=== PATIENT | male | born 1950 | race Caucasian/White ===

== ENCOUNTER → 2016-12-01 | Outpatient (CLI) | payer MEDICARE ==
--- NOTE | 2016-12-01 17:53 | REP ---
Left os calcis: Two views. History: Pain in the heel. Findings: Axial and lateral views demonstrate large plantar and Achilles calcaneal spurs. No erosive changes seen. Bones, joints and soft tissues are otherwise unremarkable. Achilles tendon contour appears normal. Impression: Extensive Achilles and plantar calcaneal spurring.
== END ==
LOC: M CLY 15:47
PROVIDERS: ATTEND Family Medicine
DX: M77.32 Calcaneal spur, left foot (principal)
CPT/HCPCS: 73650; G0463

== ENCOUNTER → 2017-02-07 | Outpatient (CLI) | payer MEDICARE ==
--- NOTE | 2017-02-07 15:54 | REP ---
Clinical: Cough. Technique: PA and lateral. Comparison: None. Findings: Mediastinum and cardiac silhouette are normal. Lung back demonstrate chronic-appearing changes primarily involving the left lower lung zone. No focal consolidation, effusion, or pneumothorax. Skeletal structures intact. Impression: Chronic-appearing changes. No prior examination is available for comparison and if the patient remains symptomatic, chest CT should be considered for further investigation.
== END ==
LOC: M CLY 15:29
PROVIDERS: ATTEND Family Medicine
DX: R05 Cough (principal)

== ENCOUNTER → 2017-03-13 | Outpatient (REF) | payer MEDICARE ==
[2017-03-13 12:38] LABS: ALBUMIN 3.8 GM/DL (3.2-5.2); ALBUMIN/GLOBULIN RATIO 1.27 (1.00-1.93); ALKALINE PHOSPHATASE 66 U/L (45-117); ALT/SGPT 29 U/L (12-78); ANION GAP 8 MEQ/L (8-16); AST/SGOT 17 U/L (15-37); BILIRUBIN,TOTAL 0.6 MG/DL (0.2-1.0); BLOOD UREA NITROGEN 16 MG/DL (7-18); CALCIUM LEVEL 8.6 MG/DL (8.8-10.2); CARBON DIOXIDE LEVEL 27 MEQ/L (21-32); CHLORIDE LEVEL 105 MEQ/L (98-107); CHOLESTEROL LEVEL 217 MG/DL (<200); CREATININE FOR GFR 0.97 MG/DL (0.70-1.30); GLOMERULAR FILTRATION RATE > 60.0 (>49); GLUCOSE, FASTING 101 MG/DL (80-110); POTASSIUM SERUM 4.3 MEQ/L (3.5-5.1); SODIUM LEVEL 140 MEQ/L (136-145); TOTAL PROTEIN 6.8 GM/DL (6.4-8.2); TRIGLYCERIDES LEVEL 184 MG/DL (<150)
== END ==
LOC: M SFHCCLAY 08:28
PROVIDERS: ATTEND Family Medicine
DX: I10 Essential (primary) hypertension (principal); Z12.5 Encounter for screening for malignant neoplasm of prostate
CPT/HCPCS: 80053; 80061; 84443; G0103

== ENCOUNTER → 2017-11-07 | Outpatient (REF) | payer MEDICARE ==
[2017-11-07 11:48] LABS: ALBUMIN/GLOBULIN RATIO 1.33 (1.00-1.93); ALKALINE PHOSPHATASE 65 U/L (45-117); ALT/SGPT 26 U/L (12-78); ANION GAP 6 MEQ/L (8-16); AST/SGOT 16 U/L (7-37); BILIRUBIN,TOTAL 0.7 MG/DL (0.2-1.0); BLOOD UREA NITROGEN 13 MG/DL (7-18); CALCIUM LEVEL 8.8 MG/DL (8.8-10.2); CARBON DIOXIDE LEVEL 27 MEQ/L (21-32); CHLORIDE LEVEL 107 MEQ/L (98-107); CHOLESTEROL LEVEL 234 MG/DL (<200); CHOLESTEROL RISK RATIO 4.034 (<5); CREATININE FOR GFR 0.88 MG/DL (0.70-1.30); GLOMERULAR FILTRATION RATE > 60.0 (>49); GLUCOSE, FASTING 106 MG/DL (70-100); HDL CHOLESTEROL 58 MG/DL (>40); NON-HDL-C 176 MG/DL; POTASSIUM SERUM 4.2 MEQ/L (3.5-5.1); SODIUM LEVEL 140 MEQ/L (136-145); TRIGLYCERIDES LEVEL 110 MG/DL (<150)
== END ==
LOC: M SFHCCLAY 07:03
DX: I10 Essential (primary) hypertension (principal)
CPT/HCPCS: 84443

== ENCOUNTER → 2018-12-31 | Outpatient (REF) | payer MEDICARE ==
[2018-12-31 11:46] LABS: ALBUMIN 3.5 GM/DL (3.2-5.2); ALT/SGPT 34 U/L (12-78); BILIRUBIN,TOTAL 0.6 MG/DL (0.2-1.0); BLOOD UREA NITROGEN 19 MG/DL (7-18); CALCIUM LEVEL 8.7 MG/DL (8.8-10.2); CARBON DIOXIDE LEVEL 30 MEQ/L (21-32); CHLORIDE LEVEL 105 MEQ/L (98-107); CHOLESTEROL LEVEL 185 MG/DL (<200); CHOLESTEROL RISK RATIO 4.111 (<5); GLOMERULAR FILTRATION RATE > 60.0 (>42); GLUCOSE, FASTING 90 MG/DL (70-100); HDL CHOLESTEROL 45 MG/DL (>40); LDL CHOLESTEROL 115 MG/DL (<100); NON-HDL-C 140 MG/DL; POTASSIUM SERUM 4.7 MEQ/L (3.5-5.1); SODIUM LEVEL 139 MEQ/L (136-145); TOTAL PROTEIN 6.8 GM/DL (6.4-8.2); TRIGLYCERIDES LEVEL 125 MG/DL (<150)
== END ==
LOC: M SFHCCLAY 07:27
PROVIDERS: ATTEND Family Medicine
DX: I10 Essential (primary) hypertension (principal); E78.2 Mixed hyperlipidemia; Z00.00 Encounter for general adult medical examination without abnormal findings
CPT/HCPCS: 80053; 80061; G0472

== ENCOUNTER → 2019-03-21 | Outpatient (REF) | payer MEDICARE ==
[2019-03-21 11:55] LABS: BASO # 0.1 10^3/uL (0.0-0.2); BASO % 0.9 % (0.0-1.0); EOS # 0.4 10^3/uL (0.0-0.50); EOS % 4.3 % (0.0-3.0); HEMATOCRIT 37.1 % (42.0-52.0); HEMOGLOBIN 12.1 g/dl (13.5-17.5); LYMPH # 0.8 10^3/uL (1.5-4.5); LYMPH % 8.8 % (24.0-44.0); MEAN CORPUSCULAR HEMOGLOBIN 26.8 pg (27.0-33.0); MEAN CORPUSCULAR HGB CONC 32.6 g/dl (32.0-36.5); MEAN CORPUSCULAR VOLUME 82.3 fl (80.0-96.0); MONO # 0.9 10^3/uL (0.0-0.8); MONO % 10.3 % (0.0-5.0); NEUTROPHILS # 6.8 10^3/uL (1.8-7.7); NEUTROPHILS % 75.1 % (36.0-66.0); PLATELET COUNT, AUTOMATED 356 10^3/uL (150-450); RED BLOOD COUNT 4.51 10^6/uL (4.30-6.10); WHITE BLOOD COUNT 9.1 10^3/uL (4.0-10.0)
[2019-03-21 12:35] LABS: FREE T4 1.12 NG/DL (0.76-1.46); THYROID STIMULATING HORMONE 1.5 uIU/ML (0.358-3.740)
[2019-03-24 00:06] LABS: Alkaline Phosphatase Iso-Bone 28 % (12-68); Alkaline Phosphatase Iso-Intes 0 % (0-18); Alkaline Phosphatase Iso-Liver 72 % (13-88); TOTAL ALK PHOS 157 IU/L (39-117)
== END ==
LOC: M SFHCCLAY 07:54
PROVIDERS: ATTEND Family Medicine
DX: R61 Generalized hyperhidrosis (principal); R74.8 Abnormal levels of other serum enzymes

== ENCOUNTER → 2019-03-21 | Outpatient (CLI) | payer MEDICARE ==
--- NOTE | 2019-03-21 09:06 | REP ---
Clinical: Night sweats . Comparison: 02/07/2017 . Technique: PA and lateral. Findings: The mediastinum and cardiac silhouette are normal. The lung back are clear and without acute consolidation, effusion, or pneumothorax. The skeletal structures are intact and normal. Impression: 1. No acute cardiopulmonary process.
== END ==
LOC: M CLY 08:00
PROVIDERS: ATTEND Family Medicine
DX: R61 Generalized hyperhidrosis (principal); R74.8 Abnormal levels of other serum enzymes

== ENCOUNTER 2019-04-15 06:48 | Day surgery (SDC) | payer MEDICARE ==
[~2019-04-15] VITALS: Ht 170.2 cm; Wt 77.6 kg
[~2019-04-15 06:48] MED LIST: ECOT81TA5 PO; LEXA1TAB PO; LISI40TA PO
[2019-04-15] MEDS ORDERED: LIDOCAINE 2% INJ 100 MG/5 ML SDV (FOR ANES.) As Ordered ONE (07:04)
[2019-04-15] MEDS ORDERED: PROPOFOL 200 MG/20 ML VIAL As Ordered ONE ×2 (07:05→08:26)
[2019-04-15] MEDS ORDERED: NS 1,000 ML IV ONE (08:00)
--- NOTE | 2019-04-15 09:02 | ROOR ---
Patient Name: Maldonado King Procedure Date: 04/15/2019 8:13 AM Date of : 1950 Age: 69 Room: [facility] Gender: Male Note Status: Finalized Procedure: Colonoscopy Indications: High risk colon cancer surveillance: Personal history of colonic polyps Providers: Melvin Elliott MD Referring MD: Blayne Escobar MD ([place]) Requesting Provider: Medicines: Monitored Anesthesia Care Complications: No immediate complications. Procedure: Pre-Anesthesia Assessment: - Prior to the procedure, a History and Physical was performed, and patient medications and allergies were reviewed. The patient is competent. The risks and benefits of the procedure and the sedation options and risks were discussed with the patient. All questions were answered and informed consent was obtained. Patient identification and proposed procedure were verified by the physician, the nurse and the anesthesiologist in the procedure room. Mental Status Examination: alert and oriented. Airway Examination: normal oropharyngeal airway and neck mobility. Respiratory Examination: clear to auscultation. CV Examination: normal. Prophylactic Antibiotics: The patient does not require prophylactic antibiotics. Prior Anticoagulants: The patient has taken no previous anticoagulant or antiplatelet agents. ASA Grade Assessment: II - A patient with mild systemic disease. After reviewing the risks and benefits, the patient was deemed in satisfactory condition to undergo the procedure. The anesthesia plan was to use monitored anesthesia care (MAC). Immediately prior to administration of medications, the patient was re-assessed for adequacy to receive sedatives. The heart rate, respiratory rate, oxygen saturations, blood pressure, adequacy of pulmonary ventilation, and response to care were monitored throughout the procedure. The physical status of the patient was re-assessed after the procedure. The Colonoscope was introduced through the anus and advanced to the terminal ileum, with identification of the appendiceal orifice and IC valve. The colonoscopy was performed without difficulty. The patient tolerated the procedure well. The quality of the bowel preparation was good. The terminal ileum, ileocecal valve, appendiceal orifice, and rectum were photographed. Scope insertion time was 3 minutes. Scope withdrawal time was 11 minutes. The total duration of the procedure was 14 minutes. Findings: The perianal and digital rectal examinations were normal. The terminal ileum appeared normal. Two flat and sessile polyps were found in the ascending colon. The polyps were 4 to 12 mm in size. These polyps were removed with a cold snare. Resection and retrieval were complete. Verification of patient identification for the specimen was done by the physician and nurse using the patient's name, date and medical record number. Estimated blood loss was minimal. Four sessile polyps were found in the transverse colon. The polyps were 5 to 7 mm in size. These polyps were removed with a cold snare. Resection and retrieval were complete. Three sessile polyps were found in the recto-sigmoid colon. The polyps were 4 to 5 mm in size. These polyps were removed with a cold snare. Resection and retrieval were complete. Non-bleeding external and internal hemorrhoids were found during retroflexion. The hemorrhoids were medium-sized. Impression: - The examined portion of the ileum was normal. - Two 4 to 12 mm polyps in the ascending colon, removed with a cold snare. Resected and retrieved. - Four 5 to 7 mm polyps in the transverse colon, removed with a cold snare. Resected and retrieved. - Three 4 to 5 mm polyps at the recto-sigmoid colon, removed with a cold snare. Resected and retrieved. - Non-bleeding external and internal hemorrhoids. Recommendation: - Patient has a contact number available for emergencies. The signs and symptoms of potential delayed complications were discussed with the patient. Return to normal activities tomorrow. Written discharge instructions were provided to the patient. - High fiber diet. - Continue present medications. - Await pathology results. - Repeat colonoscopy in 3 - 5 years for surveillance based on pathology results. - Telephone GI clinic for pathology results in 2 weeks. - Return to primary care physician. - Based on the biopsy results you will receive a phone call from GI clinic in 2-3 weeks to review the pathology results AND/OR your results will be faxed to your Primary care physician. Melvin Elliott MD Melvin Elliott MD 04/15/2019 9:01:26 AM Electronically signed by Melvin Elliott MD Number of Addenda: 0 Note Initiated On: 04/15/2019 8:13 AM Estimated Blood Loss: Estimated blood loss was minimal.
[2019-04-15 09:15] VITALS: BP 133/72
== END 2019-04-15 09:16 | disposition home or self-care (01) ==
LOC: M OPP 06:48
PROVIDERS: ATTEND Internal Medicine Gastroenterology
DX: Z12.11 Encounter for screening for malignant neoplasm of colon (principal); Z86.010 Personal history of colon polyps; D12.2 Benign neoplasm of ascending colon; D12.3 Benign neoplasm of transverse colon; D12.7 Benign neoplasm of rectosigmoid junction; K64.8 Other hemorrhoids; I10 Essential (primary) hypertension; F32.9 Major depressive disorder, single episode, unspecified; Z87.891 Personal history of nicotine dependence; Z79.82 Long term (current) use of aspirin; Z79.899 Other long term (current) drug therapy

== ENCOUNTER 2019-06-12 13:57 | Emergency (ER) | payer MEDICARE ==
[~2019-06-12] VITALS: Ht 170.2 cm; Wt 80.6 kg
[2019-06-12] MEDS ORDERED: NS 1,000 ML IV ONE (15:15)
[2019-06-12 15:46] LABS: BASO # 0.1 10^3/uL (0.0-0.2); BASO % 0.8 % (0.0-1.0); EOS # 0.4 10^3/uL (0.0-0.5); EOS % 3.1 % (0.0-3.0); HEMATOCRIT 35.7 % (42.0-52.0); HEMOGLOBIN 11.4 g/dl (13.5-17.5); LYMPH # 0.8 10^3/uL (1.5-5.0); LYMPH % 7.4 % (24.0-44.0); MEAN CORPUSCULAR HEMOGLOBIN 26.6 pg (27.0-33.0); MEAN CORPUSCULAR HGB CONC 31.9 g/dl (32.0-36.5); MEAN CORPUSCULAR VOLUME 83.2 fl (80.0-96.0); MONO # 0.8 10^3/uL (0.0-0.8); MONO % 7.2 % (0.0-5.0); NEUTROPHILS # 9.2 10^3/uL (1.5-8.5); NEUTROPHILS % 80.9 % (36.0-66.0); PLATELET COUNT, AUTOMATED 364 10^3/uL (150-450); RED BLOOD COUNT 4.29 10^6/uL (4.30-6.10); WHITE BLOOD COUNT 11.4 10^3/uL (4.0-10.0)
[2019-06-12 16:02] LABS: APPEARANCE, URINE CLEAR (CLEAR); BACTERIA, URINE AUTO NEGATIVE (NEGATIVE); BILIRUBIN, URINE AUTO NEGATIVE (NEGATIVE); BLOOD, URINE BLOOD NEGATIVE (NEGATIVE); COLOR, URINE YELLOW (YELLOW); GLUCOSE, URINE (UA) AUTO NEGATIVE (NEGATIVE); KETONE, URINE AUTO NEGATIVE (NEGATIVE); LEUKOCYTE ESTERASE, URINE AUTO NEGATIVE (NEGATIVE); MUCUS, URINE SMALL (NEGATIVE); NITRITE, URINE AUTO NEGATIVE (NEGATIVE); PROTEIN, URINE AUTO NEGATIVE (NEGATIVE); RBC, URINE AUTO 2 /HPF (0-3); SPECIFIC GRAVITY URINE AUTO 1.013 (1.002-1.035); SQUAMOUS EPITHELIAL CELL UR AU 0 /HPF (0-6); UROBILINOGEN, URINE AUTO 0.2 mg/dL (0.0-2.0); WBC, URINE AUTO 1 /HPF (0-3)
[2019-06-12 16:09] LABS: ALBUMIN 2.7 GM/DL (3.2-5.2); BILIRUBIN,DIRECT 0.2 MG/DL (0.0-0.2); BILIRUBIN,TOTAL 0.4 MG/DL (0.2-1.0); TOTAL PROTEIN 6.9 GM/DL (6.4-8.2)
[2019-06-12] MEDS ORDERED: KETOROLAC 30 MG/ML VIAL (J1885) IV ONE (16:15)
[2019-06-12] MEDS ORDERED: ISOVUE-370 76% 100ML VIAL (Q9967) As Ordered ONE (17:01)
--- NOTE | 2019-06-12 17:28 | REPVR ---
PROCEDURE INFORMATION: Exam: CT Angiography Chest With Contrast Exam date and time: 06/12/2019 4:50 PM Clinical history: 69 years old, male; Abnormal findings; Abnormal diagnostic tests; Elevated d-dimer; Additional info: Elevated d dimer TECHNIQUE: Imaging protocol: Computed tomographic angiography of the chest with intravenous contrast. 3D rendering: MIP reconstructed images were created and reviewed. Radiation optimization: All CT scans at this facility use at least one of these dose optimization techniques: automated exposure control; mA and/or kV adjustment per patient size (includes targeted exams where dose is matched to clinical indication); or iterative reconstruction. Contrast material: ISOVUE 370; Contrast volume: 100 ml; Contrast route: IV; COMPARISON: CR CHEST 2 VIEW 03/21/2019 8:24 AM FINDINGS: Pulmonary arteries: There are no pulmonary emboli. Aorta: The aorta demonstrates mild atherosclerotic calcification. No dissection/aneurysm. Lungs: Bibasilar atelectasis. Lungs otherwise clear. Pleural space: Unremarkable. No pneumothorax. No pleural effusion. Heart: Unremarkable. No cardiomegaly. No pericardial effusion. Lymph nodes: Unremarkable. No enlarged lymph nodes. Bones/joints: The spine demonstrates mild degenerative changes. Soft tissues: Unremarkable. IMPRESSION: 1. There are no pulmonary emboli. 2. No aortic dissection/aneurysm. 3. No acute pulmonary parenchymal abnormalities. Electronically signed by: Jessee Muñoz On 06/12/2019 17:28:18 PM
--- NOTE | 2019-06-12 17:39 | REPVR ---
PROCEDURE INFORMATION: Exam: CT Angiography Abdomen With Contrast Exam date and time: 06/12/2019 4:50 PM Clinical history: 69 years old, male; Abnormal findings; Abnormal lab test; Elevated d-dimer; Additional info: Elevated d dimer TECHNIQUE: Imaging protocol: Computed tomographic angiography images of the abdomen with intravenous contrast material. 3D rendering: MIP reconstructed images were created and reviewed. Radiation optimization: All CT scans at this facility use at least one of these dose optimization techniques: automated exposure control; mA and/or kV adjustment per patient size (includes targeted exams where dose is matched to clinical indication); or iterative reconstruction. Contrast material: ISOVUE 370; Contrast volume: 100 ml; Contrast route: IV; COMPARISON: No relevant prior studies available. FINDINGS: VASCULATURE: Aorta: The aorta demonstrates moderate atherosclerotic calcification. No stenosis or aneurysm. Celiac trunk and mesenteric arteries: No occlusion or significant stenosis. Renal arteries: No occlusion or significant stenosis. Right iliac arteries: Mild atherosclerotic changes in the right iliac arteries. No stenosis or aneurysm. Left iliac arteries: Mild atherosclerotic changes in the left iliac arteries. No stenosis or aneurysm. Portal Venous System: There is nonopacification of the splenic vein extending from the confluence of the portal vein inferiorly for 5.4 cm. Although the finding may represent a thrombosis and possibility of nonopacification artifact related to arterial phase imaging should be considered as well. ABDOMEN: Liver: Examination of the liver demonstrates a lobular surface contour, and enlargement of the left and caudate lobes, findings consistent with cirrhosis. Hepatic steatosis. Hepatomegaly. There are multiple hypoattenuating foci demonstrated throughout the liver with the largest geographic focus bridging the anterior segment of the right lobe and medial segment of the left lobe of the liver measuring 7.2 x 9.3 x 8.2 cm. Findings worrisome for metastatic disease. Gallbladder and bile ducts: Normal. No calcified stones. No ductal dilation. Pancreas: Normal. No ductal dilation. Spleen: There is moderate splenomegaly with a maximum span of 17 centimeters. There is a hypoattenuating mass at the inferior pole of the spleen measuring 5.9 x 5.5 x 4.7 cm. Adrenals: Normal. No mass. Kidneys and ureters: Bilateral renal cysts measure up to 1.7 x 2.6 cm in the left kidney. Stomach and bowel: Unremarkable. No obstruction. No mucosal thickening. Intraperitoneal space: Unremarkable. No free air. No significant fluid collection. Bones/joints: Moderate central spinal stenosis L3-4 and mild central spinal stenosis L4-5.The spine demonstrates mild degenerative changes. Soft tissues: Unremarkable. Lymph nodes: Unremarkable. No enlarged lymph nodes. IMPRESSION: 1. Examination of the liver demonstrates findings consistent with cirrhosis. Hepatic steatosis. Hepatomegaly. There are multiple hypoattenuating foci demonstrated throughout the liver worrisome for metastatic disease. 2. There is moderate splenomegaly with a maximum span of 17 centimeters. There is a hypoattenuating mass at the inferior pole of the spleen measuring 5.9 x 5.5 x 4.7 cm. Finding may represent a metastasis. 3. Bilateral renal cysts measure up to 1.7 x 2.6 cm in the left kidney. 4. There is nonopacification of the splenic vein extending from the confluence of the portal vein inferiorly for 5.4 cm. Although the finding may represent a thrombosis and possibility of nonopacification artifact related to arterial phase imaging should be considered as well. Electronically signed by: Jessee Muñoz On 06/12/2019 17:39:34 PM
--- NOTE | 2019-06-12 20:33 | REPVR ---
PROCEDURE INFORMATION: Exam: US Duplex Artery or Vein of the Abdominal and/or Reproductive Organs, Limited Exam date and time: 06/12/2019 8:04 PM Clinical history: 69 years old, male; Abnormal findings; Abnormal radiologic finding, abdomen and pelvic vessels; Additional info: Evaluate mesenteric vein and pancreatic confluence TECHNIQUE: Imaging protocol: Real-time duplex ultrasound scan of the arterial or venous flow of the abdomen and/or reproductive organs, with color Doppler flow and spectral waveform analysis with image documentation. Exam focused on the region of clinical interest. Duplex images were received to evaluate vascular conditions. COMPARISON: No relevant prior studies available. FINDINGS: Portal venous: Splenic vein patent. Portal vein is patent. Superior mesenteric vein not visualized due to overlying bowel gas. IMPRESSION: Splenic vein patent. Portal vein is patent. Superior mesenteric vein not visualized due to overlying bowel gas. Electronically signed by: Jessee Muñoz On 06/12/2019 20:31:51 PM
[2019-06-12 21:14] VITALS: BP 171/84
[2019-06-12] MEDS ORDERED: NORC1TAB7 PO (21:37)
[2019-06-12] MEDS ORDERED: NORCO, ANEXSIA 5/325MG TABLET (HYDROcodone/ACETAMINOPHEN) PO ONE (21:45)
[2019-06-12] MEDS ORDERED: NORCO 5/325MG TABLET (BULK FOR ED) PO ONE (21:45)
--- NOTE | 2019-06-13 00:08 | ECGEPIP ---
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
--- NOTE | 2019-06-13 06:39 | ED PDOC ---
Post-Departure Follow-Up dr hope faxed formal report of cta abd/p and doppler flow for fu Kalia Lam MD Jun 13, 2019 06:39
--- NOTE | 2019-06-16 06:54 | ED PDOC ---
Post-Departure Follow-Up 06/12/[address] ED [address]. Wilson in regards to CT finding, after discussion Dr. Wilson agreed with my decision to consult Dr. Tevin Hayes. 06/12/[address] Tevin Hayes, discussed CT findings, after review of CT Dr. Hayes stated a Mesenteric US could be completed for further diagnostic purposes, however it would not change the plan of care as discussed. There would be no vascular intervention at this time. Dr. Hayes also stated, he would need a follow up appointment for further discussion or evaluation. Mesenteric US was performed, Dr. Hayes said he would review in the morning. Impression: No Splenic vein thrombosis noted. Mary Champagne WIRE DRAWING SETTER Jun 16, 2019 06:54
[2019-06-26] MEDS ORDERED: OXYC-403 PO (08:14)
[2019-06-26] MEDS ORDERED: OXYC-517 PO (09:22)
[2019-06-26] MEDS ORDERED: PROC5TA PO (09:24)
[2019-07-07] MEDS ORDERED: PROC5TA PO (08:09)
[2019-07-14] MEDS ORDERED: ONDA8TAB10 PO (15:33)
[2019-07-28] MEDS ORDERED: ATIV1TAB7 PO ×2 (10:15→12:42)
[2019-07-28] MEDS ORDERED: PRED20TA PO (10:20)
[2019-07-29] MEDS ORDERED: ZYLO300T6 PO (17:42)
[2019-09-30] MEDS ORDERED: OMEP-218 PO (10:10)
[2019-09-30] MEDS ORDERED: SULF1TAB93 (10:10)
[2019-09-30] MEDS ORDERED: PRED20TA PO (10:31)
[2019-09-30] MEDS ORDERED: DAPS10TA PO (18:24)
== END 2019-06-12 22:12 | disposition home or self-care (01) ==
LOC: M ED 13:57
DX: R93.5 Abnormal findings on diagnostic imaging of other abdominal regions, including retroperitoneum (principal); R10.11 Right upper quadrant pain; I10 Essential (primary) hypertension; Z79.899 Other long term (current) drug therapy; Z79.82 Long term (current) use of aspirin
CPT/HCPCS: 71275; 74175; 80047; 80076; 81001; 82150; 83690; 85025; 85379; 93005; 93975; 96361; 96374; 99284; J1885; Q9967

== ENCOUNTER → 2019-06-30 | Outpatient (CLI) | payer MEDICARE ==
[~2019-06-30] MED LIST changes: +NORC1TAB7 PO; +OXYC-403 PO; +OXYC-517 PO; +PROC5TA PO
[2019-06-30 14:35] VITALS: BP 142/72
--- NOTE | 2019-06-30 18:51 | REP ---
Ultrasound-guided liver biopsy This procedure was performed by Nette GREY, under the direct supervision of Dr. Williamson. The risks and benefits of the procedure were explained to the patient and informed consent was obtained both verbally and written. Directly prior to the start of the procedure, a formal timeout was done in the procedure room. A mass in the left lobe of the liver was localized using ultrasound guidance. The skin was prepped and draped in a sterile fashion. 8 ml of 1% lidocaine was used as a local anesthetic. Using ultrasound guidance a small skin luther was made and a 19/20 gauge coaxial needle biopsy system was inserted and advanced into the liver. 5 core biopsy samples were obtained and sent to the lab. The patient tolerated the procedure well and there were no immediate complications. After the appropriate monitored convalescence the patient was discharged home from the department. Reviewed by QUE Paul 06/30/2019 03:02 P Electronically Signed by Camron Williamson MD 06/30/2019 06:42 P
== END ==
LOC: M IRPRO 11:11
PROVIDERS: ATTEND Nurse Practitioner Family
DX: K76.89 Other specified diseases of liver (principal)

== ENCOUNTER → 2019-07-01 | Outpatient (CLI) | payer MEDICARE ==
[~2019-07-01] MED LIST changes: +ONDA8TAB7 PO; +PROHANCE 279.3MG/ML 15ML VIAL (A9576) As Ordered ONE
--- NOTE | 2019-07-02 12:22 | REP ---
MRI ABDOMEN AND LIVER WITHOUT AND WITH IV CONTRAST: HISTORY: Liver masses. Right upper quadrant pain. Comparison CT study June 12, 2019. Gadolinium enhancement dose is 14 mL of intravenous ProHance. MR TECHNIQUE: Axial and coronal imaging planes were utilized. T1- and T2-weighted sequences include spin-echo, fast spin echo, diffusion, gradient echo, in- and [id number], and dynamically acquired post contrast images. MRI FINDINGS: There is hepatosplenomegaly. Multiple left and right lobe hepatic mass lesions are seen most consistent with metastatic disease. These range in size from 1.5 cm to a 16 cm lobulated confluent lesion. The larger lesions show increased T2 signal intensity with central areas of hyperintense T2 signal suggesting necrotic changes. The lesions do show some contrast enhancement in the periphery although generally less avid enhancement than the surrounding normal hepatic parenchyma. 10-minute delayed images show more central enhancement but there is no filling and/or central scar enhancement seen. There is a mass lesion in the spleen as well measuring 5.8 cm in greatest diameter. This also shows a mild contrast enhancement. There is no evidence of pancreatic mass. No definite abdominal adenopathy. The splenic vein and portal vein appear normal and patent showing contrast enhancement on MRI study. There is a small cyst in the left mid kidney. No renal mass lesion is observed. IMPRESSION: Multiple hepatic masses and a splenic mass compatible with metastatic disease. Small cyst left kidney. No pancreatic lesion or definite adenopathy. Electronically Signed by Camron Williamson MD 07/02/2019 01:49 P
== END ==
LOC: M RAD 17:25
PROVIDERS: ATTEND Nurse Practitioner Family
DX: R16.2 Hepatomegaly with splenomegaly, not elsewhere classified (principal); N28.1 Cyst of kidney, acquired
CPT/HCPCS: 74183; A9576

== ENCOUNTER → 2019-07-08 | Outpatient (CLI) | payer MEDICARE ==
[~2019-07-08] MED LIST changes: -PROHANCE 279.3MG/ML 15ML VIAL (A9576) As Ordered ONE
--- NOTE | 2019-07-09 15:37 | REP ---
REASON: Lymphoma. PRIORS: None. After the intravenous administration of 8.67 of FDG 18 triplane whole body PET/CT was performed from the skull base to the mid thigh. There is no abnormal hypermetabolic activity in the neck. There is no abnormal hypermetabolic activity in the chest. There are numerable focal and confluent areas of grossly abnormal hypermetabolic activity seen throughout the hepatic parenchyma and one large area of similar characteristics in the spleen. These SUV values range from 5 to 17. There are no other abnormal areas of hypermetabolic activity seen in the abdomen or pelvis. IMPRESSION: Gross abnormal hypermetabolic activity seen in the liver and spleen. Etiology uncertain. Hemangiomas are not typically hypermetabolic on FDG 18 PET scanning. Electronically Signed by Ronnell Pederson DO 07/09/2019 04:30 P
== END ==
LOC: M PLARAD 14:00
PROVIDERS: ATTEND Internal Medicine Medical Oncology
DX: R93.2 Abnormal findings on diagnostic imaging of liver and biliary tract (principal)
CPT/HCPCS: 78815; A9552

== ENCOUNTER → 2019-07-16 | Outpatient (CLI) | payer MEDICARE ==
[~2019-07-16] MED LIST changes: +ATIV1TAB7 PO; +PRED20TA PO; +ZYLO300T6 PO
[2019-07-16 18:10] VITALS: BP 129/72
--- NOTE | 2019-07-17 14:44 | REP ---
ULTRASOUND-GUIDED LIVER BIOPSY The procedure was performed under the direct supervision of Dr. Lockhart. The patient has a history of multiple hepatic masses seen on a previous MRI dated 07/01/2019. There was also gross abnormal hypermetabolic activity seen in the liver on a previous PET scan dated 07/08/2019. The risks and benefits of the procedure were explained to the patient and informed consent was obtained. A mass in the left lobe of the liver was localized using ultrasound guidance. The skin was prepped and draped in a sterile fashion. 1% lidocaine was used as a local anesthetic. Using ultrasound guidance a 19/20 gauge coaxial needle biopsy system was inserted and advanced into the mass. Five core biopsy samples were obtained and sent to lab. The patient tolerated the procedure well and there were no immediate complications. After the appropriate amount of monitored convalescence the patient was discharged from the department. Electronically Signed by QUE Barfield 07/16/2019 05:07 P Electronically Signed by Christopher Lockhart MD 07/17/2019 02:35 P
== END ==
LOC: M IRPRO 14:18
PROVIDERS: ATTEND Internal Medicine Medical Oncology
DX: C83.39 Diffuse large B-cell lymphoma, extranodal and solid organ sites (principal); K76.89 Other specified diseases of liver; Z79.82 Long term (current) use of aspirin; Z79.891 Long term (current) use of opiate analgesic; Z79.899 Other long term (current) drug therapy

== ENCOUNTER 2019-07-30 16:54 | Inpatient (IN) | payer MEDICARE ==
[~2019-07-30] VITALS: Ht 167.6 cm; Wt 74.4 kg
[2019-07-30 18:30] VITALS: BP 140/78
--- NOTE | 2019-07-30 19:20 | HPEPDOC ---
[facility] Medical History & Physical Date of Admission Jul 30, 2019 Date of Service: Jul 30, 2019 Attending Physician: GHASSAN GRAJEDA MD History and Physical CHIEF COMPLAINT: Inpatient chemotherapy HISTORY OF PRESENT ILLNESS: 69-year-old male with past medical history of hypertension, diffuse large B-cell lymphoma is sent in for direct admission by oncologist to receive inpatient chemotherapy. Oncologist is very concerned about tumor lysis syndrome, for which patient will be admitted and monitored while undergoing chemotherapy. Patient's only complaint at this time is nausea, denies any shortness of breath, chest pain, abdominal pain, diarrhea or constipation. Patient is audible started on allopurinol and prednisone in preparation for chemotherapy. Case discussed with Dr. Guzman in detail, will undergo R-CHOP therapy starting tomorrow and have labs drawn twice a day to monitor for tumor lysis syndrome. 10 point review of system was negative except for above PAST MEDICAL HISTORY: 1. Diffuse large B-cell lymphoma. 2. Hypertension. PAST SURGICAL HISTORY: None SOCIAL HISTORY: Never smoker. Social use. Denies drug use FAMILY HISTORY: Mother with lung cancer ALLERGIES: Please see below. HOME MEDICATIONS: Please see below. PHYSICAL EXAMINATION: VITAL SIGNS: Please see below. GENERAL: No distress HEENT: Normocephalic, atraumatic, moist mucous membranes NECK: Supple CARDIOVASCULAR EXAMINATION: S1, S2, no murmurs RESPIRATORY EXAMINATION: Clear to auscultation, no wheezing ABDOMINAL EXAMINATION: Soft, mild right upper quadrant tenderness, nondistended, positive bowel sounds EXTREMITIES: Trace bilateral lower extremity pitting edema SKIN: No rash NEUROLOGICAL EXAMINATION: Alert and oriented 3, no focal deficits PSYCHIATRIC EXAMINATION: Calm and cooperative LABORATORY DATA: See below. MICROBIOLOGY: Please see below. ASSESSMENT: 69-year-old male with diffuse large B-cell lymphoma will be admitted for inpatient chemotherapy and monitored for tumor lysis syndrome. PLAN: 1. Diffuse large B-cell lymphoma. Patient will start R-CHOP therapy starting tomorrow, has already been started on allopurinol and prednisone in the outpatient setting, we'll continue during hospitalization, we'll be checking tumor lysis labs (BMP, calcium, phosphorus, LDH and uric acid) twice a day. Plan is to monitor the patient for 3-4 days post chemotherapy for tumor lysis syndrome. Patient will also be undergoing an echocardiogram as one of the chemotherapeutic agents is cardiotoxic. Patient will be monitored on telemetry. 2. Hypertension. Continue home lisinopril DVT prophylaxis: Heparin subcutaneous GI prophylaxis: Not needed Vital Signs Vital Signs Date Time Temp Pulse Resp B/P (MAP) Pulse Ox O2 Delivery O2 Flow Rate FiO2 07/30/19 18:30 97.8 85 18 140/78 (98) 98 Room Air Home Medications Scheduled Allopurinol (Zyloprim) 300 Mg Tablet, 300 MG PO DAILY for tumor lysis prophylaxis Aspirin (Ecotrin) 81 Mg Tablet.dr, 1 TAB PO DAILY for pain Escitalopram Oxalate (Lexapro) 10 Mg Tablet, 1 TAB PO DAILY Lisinopril (Lisinopril) 40 Mg Tablet, 40 MG PO DAILY Lorazepam (Ativan) 1 Mg Tablet, 1 MG PO ONCE for preprocedure one tab one hour before procedure may repeat Prednisone (Prednisone) 20 Mg Tablet, 80 MG PO ASDIRECTED take 4 tabs daily for 5 days every 3 weeks or as directed Scheduled PRN Ondansetron HCl (Ondansetron HCl) 8 Mg Tablet, 8 MG PO Q6H PRN for NAUSEA OR VOMITING Oxycodone HCl (Oxycodone HCl ER) 10 Mg Tab.er.12h, 5 MG PO BIDP PRN for pain Allergies Coded Allergies: No Known Allergies (Unverified , 04/14/19) A-FIB/CHADSVASC A-FIB History Current/History of A-Fib/PAF?: No GHASSAN GRAJEDA MD Jul 30, 2019 19:20
[2019-07-30] MEDS: ONDANSETRON 4 MG TAB (S0181) PO PRN (20:13)
[2019-07-30] MEDS: HEPARIN SOD (PORCINE) 5000 UNITS/ML VIAL SC SCH (20:14)
[2019-07-30 22:00] VITALS: BP 147/76
[2019-07-31] MEDS ORDERED: METOCLOPRAMIDE INJ 10MG/2ML VIAL (J2765) IV ONE (00:30)
[2019-07-31 06:00] VITALS: BP 137/74
--- NOTE | 2019-07-31 06:47 | ECGEPIP ---
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
[2019-07-31 06:48] LABS: HEMATOCRIT 36.3 % (42.0-52.0); HEMOGLOBIN 11.6 g/dl (13.5-17.5); MEAN CORPUSCULAR VOLUME 87.5 fl (80.0-96.0); PLATELET COUNT, AUTOMATED 300 10^3/uL (150-450); RED BLOOD COUNT 4.15 10^6/uL (4.30-6.10); WHITE BLOOD COUNT 8.5 10^3/uL (4.0-10.0)
[2019-07-31 07:11] LABS: ALBUMIN 2.3 GM/DL (3.2-5.2); ALT/SGPT 37 U/L (12-78); BILIRUBIN,TOTAL 1.2 MG/DL (0.2-1.0); BLOOD UREA NITROGEN 16 MG/DL (7-18); CALCIUM LEVEL 10.9 MG/DL (8.8-10.2); CARBON DIOXIDE LEVEL 29 MEQ/L (21-32); CHLORIDE LEVEL 101 MEQ/L (98-107); CREATININE FOR GFR 0.95 MG/DL (0.70-1.30); GLOMERULAR FILTRATION RATE > 60.0 (>42); GLUCOSE, FASTING 76 MG/DL (70-100); LDH LACTATE DEHYDROGENASE 816 U/L (87-241); POTASSIUM SERUM 4.3 MEQ/L (3.5-5.1); SODIUM LEVEL 139 MEQ/L (136-145)
[2019-07-31] MEDS: HEPARIN SOD (PORCINE) 5000 UNITS/ML VIAL SC SCH ×2 (08:53→19:43)
[2019-07-31] MEDS: predniSONE 20 MG TAB PO SCH (08:54)
[2019-07-31] MEDS: ASPIRIN 81 MG ENTERIC TAB PO SCH (08:54)
[2019-07-31] MEDS: ALLOPURINOL 300 MG TAB PO SCH (08:54)
[2019-07-31] MEDS: LISINOPRIL 40 MG TAB PO SCH (08:54)
[2019-07-31] MEDS: NS 1,000 ML IV SCH ×2 (10:55→18:23)
[2019-07-31] MEDS ORDERED: dexameTHASONE 10 MG IV IV ONE (11:30)
[2019-07-31] MEDS ORDERED: OLANZapine 10 MG PO PO ONE (11:30)
[2019-07-31] MEDS ORDERED: FOSAPREPITANT PERIPHERAL LINE 30 MIN INFUSION (PREMIX) IV ONE ×2 (11:30)
[2019-07-31] MEDS ORDERED: PALONOSETRON 250 MCG IV IV ONE (11:30)
[2019-07-31] MEDS ORDERED: DOXORUBICIN IVP ONE (12:30)
[2019-07-31] MEDS ORDERED: NS IV ONE (12:50)
[2019-07-31] MEDS ORDERED: CYCLOPHOSPHAMIDE IV ONE (12:50)
[2019-07-31 13:09] LABS: PHOSPHORUS LEVEL 2.7 MG/DL (2.5-4.9)
--- NOTE | 2019-07-31 13:16 | CR ---
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 Cytogenetics pending. REQUESTING PHYSICIAN: Dr. Ramirez of hospitalist service. HISTORY OF PRESENT ILLNESS Mr. King presented in early June with progressive fatigue, weight loss and malaise without localizing signs. Abdomen and pelvis CT revealed multiple liver lesions. Initial biopsy attempt was negative, followup biopsy attempt confirmed diffuse large B-cell lymphoma germinal center type. In the short interval under which he has been seen in medical oncology his malaise has progressed, LDH risen, and because of concern for rapidly progressive disease with spontaneous tumor lysis syndrome he was hospitalized, started on fluids and allopurinol and prednisone empirically. Today at the bedside, Mr. King replies as he does every day that he feels "lousy" but does deny feeling worse today than yesterday. He affirms he began prednisone 2 days ago. He has also been on allopurinol for 2-3 days. He denies fevers, chills, new breathing problems, nausea or vomiting, but his appetite is no better. LABS: WBC 8.4, hemoglobin 11.6, hematocrit 36, platelets 300. Electrolytes are normal. Uric acid is 10. Calcium 10.9, albumin 2.3, thus corrected mild to moderate hypocalcemia, alkaline phosphatase 648, LDH 816, mildly down from 848 07/28/2019. Phosphorus not drawn. 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 ECOG performance status 2. PLAN: 1. Maldonado agrees to start chemotherapy today. I reviewed risks, benefits and side effects as well as the schedule and rationale for R-CHOP. We are going to separate the chop from the R on his first cycle giving chop day 1, rituximab day 2. Risks and side effects including but not limited to nausea, vomiting, alopecia, risk of tumor lysis syndrome, risk of infusion reaction which could be life-threatening, risk of myelosuppression leading to anemia, thrombocytopenia, or leukopenia with potential need for transfusion, the plan to give G-CSF support, the risk of renal failure with tumor lysis syndrome, the need for IV hydration, the risk of cardiac toxicity from doxorubicin. The patient signed written informed consent. 2. I communicated with Dr. Ramirez of hospitalist service requesting twice daily tumor lysis labs to include phosphorus, CMP, uric acid. 3. If calcium increases despite low albumin would consider pamidronate but only extremely cautiously given risk for hypocalcemia with potential tumor lysis syndrome. This particular patient is at risk for developing significant tumor lysis syndrome in the next 3-5 days. 4. IV hydration with normal saline. 5. Rituximab to be given tomorrow. 6. The patient will complete 5 days of prednisone 80 mg daily. He started at home. 7. Ordinarily the plan would be for pegfilgrastim given first day following completed chemotherapy. If Mr. King remains inpatient, we can give Neupogen 300 mcg daily subcu until discharged and have him followup rapidly in oncology clinic to continue the Neupogen or possibly Neulasta. 8. I will be out of town as of tomorrow through next week. Dr. Weiss and Dr. Pascal will be covering the oncology service and I will apprise them of this patient's inpatient status. 9. Thanks to all the nurses, pharmacists, and historic site administrator to help make it possible to treat this patient inpatient on a rapid basis. MTDD
[2019-07-31 13:36] VITALS: BP 156/91
--- NOTE | 2019-07-31 14:34 | ECHO ---
DATE OF STUDY: 07/31/2019 REFERRING PHYSICIAN: Dr. Rochelle Ramirez INDICATION: Chemotherapy drugs that may affect the heart. HEIGHT: 170 cm. WEIGHT: 76 kg. 2-D MEASUREMENTS: Aortic root: 3.4 cm Left atrium: 3.7 cm Ventricular septum: 1.08 cm Posterior wall: 1.13 cm Left ventricle diastole: 4.6 cm Inferior vena cava: 1.5 cm DOPPLER MEASUREMENTS: Aortic valve velocity: 127 cm/sec LVOT velocity: 104 cm/sec No aortic regurgitation Very mild mitral regurgitation Mitral E velocity: 55.3 cm/sec Mitral A velocity: 67.1 cm/sec Mitral deceleration time: 264 ms No tricuspid regurgitation No pulmonic regurgitation Pulmonary artery systolic pressure 27 mmHg MITRAL ANNULAR TISSUE DOPPLER: E prime septal: 5.3 cm/sec E prime lateral: 8.2 cm/sec DESCRIPTION: The rhythm was sinus. Image quality was good. This was a 2-D, M-mode, color flow Doppler and pulse wave Doppler examination and included mitral annular tissue Doppler. CONCLUSIONS: 1. Normal left ventricle internal dimensions and wall thickness. Normal regional LV wall motion and wall thickening. Normal LV systolic function. LVEF 63% (Helton's method of disks, biplane). Grade 1 LV diastolic dysfunction. 2. No pericardial effusion. 3. Mild mitral annular calcification. No mitral regurgitation. 4. Mild aortic valve sclerosis with a 3-cuspid aortic valve. No aortic regurgitation. 5. Otherwise normal appearing echocardiogram-Doppler findings.
[2019-07-31] MEDS ORDERED: MIDAZOLAM INJ 2 MG/2 ML VIAL (J2250) As Ordered ONE (15:33)
[2019-07-31] MEDS ORDERED: fentaNYL 100 MCG/2 ML INJECTION (J3010) As Ordered ONE (15:33)
[2019-07-31] MEDS ORDERED: LIDOCAINE 1% MDV 20ML VIAL As Ordered ONE (15:33)
[2019-07-31] MEDS ORDERED: LIDOCAINE W/EPINEPHRINE 1% 20ML VIAL As Ordered ONE (15:40)
[2019-07-31] MEDS ORDERED: ceFAZolin 1GM INJ (J0690 PER 500MG) As Ordered ONE (16:34)
--- NOTE | 2019-07-31 17:38 | ROOPDOC ---
[facility] Report Of Operation Report of Operation DATE OF PROCEDURE: 07/31/19 PREPROCEDURE DIAGNOSES: Large B-cell lymphoma and need for IV access. POSTPROCEDURE DIAGNOSES: Same. PROCEDURE: 1. Ultrasound-guided access right internal jugular vein. 2. Placement of a tunneled 22 cm Cyluwc-q-Gruy right jugular vein SURGEON: Violet Manriquez MD ANESTHESIA: Local anesthesia 18 mL lidocaine with epi. Moderate intravenous conscious sedation was supervised by Dr. Manriquez. The patient was independently monitored by registered nurse assigned to the Department of radiology using automated blood pressure, EKG, and pulse oximetry. The detailed sedation record is permanently housed in the hospital information system. The following is the brief sedation record: Start time 16:51, stop time 17:28, Versed 1 mg IV, fentanyl 50 g IV, Ancef 1 g IV. INDICATION FOR PROCEDURE: Mr. King is a very pleasant 69-year-old gentleman with large B-cell lymphoma and need for IV access. Risks benefits and alternatives to Rkgaur-f-Esvh placement were explained to the patient he is agreeable to proceed. Informed consent was obtained. INTERPRETATION: The Port-A-Cath is in good placement tunneled from the right chest to the right jugular with the tip freely mobile at the SVC right atrial junction. The catheter length is 22 cm. There is no pneumothorax. REPORT OF OPERATION: The patient was brought to the angiographic suite in stable condition and positioned supine on the fluoroscopic table. His right neck and chest were prepped and draped in a sterile fashion. A timeout was performed. Local anesthesia was a live truck operator to skin and subcutaneous tissue over the jugular vein and the right jugular was then accessed with a microneedle under ultrasound guidance. A wire was passed through this access into the central system under fluoroscopic guidance the needle was removed. A small incision was made at the access site with the skin knife and a micro-sheath was placed over the wire. The wire was then exchanged for an O35 wire. Next a small incision was made on the right chest just distal to the clavicle and carried down to subcutaneous tissue. Blunt and sharp dissection were used to develop a pocket distal to this over the rib on the chest. The port was placed easily into the pocket. The pocket was then irrigated and the port catheter was tunneled from the pocket to the jugular access site the micro-sheath was exchanged for a peel-away sheath over the wire using a Seldinger technique. We then removed the inner cannula and wire catheter was cut to 22 cm and placed into the central system through the peel-away sheath and the peel-away sheath was removed. The catheter was adjusted to make sure there were no kinks or bends in the catheter. The pocket was again irrigated a H uber needle was used to access the port and it to back and flushed easily. We left the port accessed at the request of the nurses. We irrigated one last time at the jugular access site and the port pocket, and the deep tissues on the port were approximated with running Vicryl suture and the skin was approximated with a running subcuticular Monocryl suture. Steri-Strips were placed the length of the incision and sterile dressings were applied. We heparin locked the port through the Martino needle and appropriate cap was placed. At the jugular access site the deep tissue was approximated with interrupted Vicryl sutures and the skin was closed with interrupted subcuticular Monocryl suture and Dermabond was placed at the skin. A final image was taken and the port was in good position with no kinks in the catheter with the tip freely mobile at the SVC right atrial junction. There is no pneumothorax. It is okay to use the port. ESTIMATED BLOOD LOSS: Approximately 5 mL. COMPLICATIONS: None. PLAN: It is okay to use the Srgwwy-i-Optw. VIOLET MANRIQUEZ MD Jul 31, 2019 17:38
[2019-07-31 18:00] VITALS: BP 117/62
[2019-07-31] MEDS ORDERED: SODIUM CHLORIDE 0.9% INJ 10 ML SYR IV PRN (19:00)
[2019-07-31 19:28] LABS: ALBUMIN 2.3 GM/DL (3.2-5.2); ALT/SGPT 40 U/L (12-78); BILIRUBIN,TOTAL 0.9 MG/DL (0.2-1.0); BLOOD UREA NITROGEN 19 MG/DL (7-18); CARBON DIOXIDE LEVEL 24 MEQ/L (21-32); CHLORIDE LEVEL 103 MEQ/L (98-107); GLOMERULAR FILTRATION RATE > 60.0 (>42); GLUCOSE, FASTING 124 MG/DL (70-100); LDH LACTATE DEHYDROGENASE 891 U/L (87-241); POTASSIUM SERUM 4.4 MEQ/L (3.5-5.1); SODIUM LEVEL 139 MEQ/L (136-145); TOTAL PROTEIN 6.1 GM/DL (6.4-8.2); URIC ACID 8.4 MG/DL (3.5-7.2)
[2019-07-31 19:46] VITALS: BP 118/64
--- NOTE | 2019-07-31 20:15 | IPNPDOC ---
Date Seen The patient was seen on 07/31/19. Progress Note HISTORY OF PRESENT ILLNESS: 69-year-old male with past medical history of hypertension, diffuse large B-cell lymphoma is sent in for direct admission by oncologist to receive inpatient chemotherapy. Oncologist is very concerned about tumor lysis syndrome, for which patient will be admitted and monitored while undergoing chemotherapy. Patient's only complaint at this time is nausea, denies any shortness of breath, chest pain, abdominal pain, diarrhea or constipation. Patient is audible started on allopurinol and prednisone in preparation for chemotherapy. Case discussed with Dr. Guzman in detail, will undergo R-CHOP therapy starting tomorrow and have labs drawn twice a day to monitor for tumor lysis syndrome. 07/31/2019 Patient resting comfortably in bed, reports nausea, no other complaints. He will be getting an Jxiptb-a-Jwid and chemotherapy starting today. 10 point review of system was negative except for above PHYSICAL EXAMINATION: VITAL SIGNS: Please see below. GENERAL: No distress HEENT: Normocephalic, atraumatic, moist mucous membranes NECK: Supple CARDIOVASCULAR EXAMINATION: S1, S2, no murmurs RESPIRATORY EXAMINATION: Clear to auscultation, no wheezing ABDOMINAL EXAMINATION: Soft, mild right upper quadrant tenderness, nondistended, positive bowel sounds EXTREMITIES: Trace bilateral lower extremity pitting edema SKIN: No rash NEUROLOGICAL EXAMINATION: Alert and oriented 3, no focal deficits PSYCHIATRIC EXAMINATION: Calm and cooperative LABORATORY DATA: See below. MICROBIOLOGY: Please see below. ASSESSMENT: 69-year-old male with diffuse large B-cell lymphoma will be admitted for inpatient chemotherapy and monitored for tumor lysis syndrome. PLAN: 1. Diffuse large B-cell lymphoma. Patient will start CHOP therapy today, followed by rituximab tomorrow, continue allopurinol and prednisone, tumor lysis labs (BMP, calcium, phosphorus, LDH and uric acid) twice a day. Plan is to monitor the patient for 3-4 days post chemotherapy for tumor lysis syndrome. TTE pending, continue telemetry monitoring, normal saline increased to 200 miles per hour. Will provide IV Lasix if needed. 2. Hypertension. Continue home lisinopril DVT prophylaxis: Heparin subcutaneous GI prophylaxis: Not needed VS, I&O, 24H, Fishbone Vital Signs/I&O Vital Signs Date Time Temp Pulse Resp B/P (MAP) Pulse Ox O2 Delivery O2 Flow Rate FiO2 07/31/19 19:46 96.7 78 18 118/64 (82) 92 Room Air 07/31/19 17:25 2 I&O- Last 24 Hours up to 6 AM 07/31/19 06:00 Intake Total 300 ml Balance 300 ml Laboratory Data 24H LABS Laboratory Tests 2 07/31/19 05:33: Nucleated Red Blood Cells % (auto) 0.0, Anion Gap 9, Glomerular Filtration Rate > 60.0, Uric Acid 10.0H, Calcium Level 10.9H, Phosphorus Level 2.7, Magnesium Level 2.0, Total Bilirubin 1.2H, Aspartate Amino Transf (AST/SGOT) 101H, Alanine Aminotransferase (ALT/SGPT) 37, Alkaline Phosphatase 648H, Lactate Dehydrogenase 816H, Total Protein 6.0L, Albumin 2.3L, Albumin/Globulin Ratio 0.62L 07/31/19 18:39: Anion Gap 12, Glomerular Filtration Rate > 60.0, Uric Acid 8.4H, Calcium Level 10.0, Phosphorus Level 4.0#, Total Bilirubin 0.9, Aspartate Amino Transf (AST/SGOT) 100H, Alanine Aminotransferase (ALT/SGPT) 40, Alkaline Phosphatase 6 54H, Lactate Dehydrogenase 891H, Total Protein 6.1L, Albumin 2.3L, Albumin/Globulin Ratio 0.61L CBC/BMP Laboratory Tests 07/31/19 05:33 07/31/19 18:39 GHASSAN GRAJEDA MD Jul 31, 2019 20:15
[2019-08-01] VITALS (13 sets, daily range): BP systolic 120–145; BP diastolic 57–83
[2019-08-01] MEDS: NS 1,000 ML IV SCH ×6 (00:56→20:46)
[2019-08-01 06:23] LABS: HEMOGLOBIN 11.3 g/dl (13.5-17.5); MEAN CORPUSCULAR HEMOGLOBIN 27.6 pg (27.0-33.0); MEAN CORPUSCULAR HGB CONC 31.4 g/dl (32.0-36.5); MEAN CORPUSCULAR VOLUME 87.8 fl (80.0-96.0); PLATELET COUNT, AUTOMATED 230 10^3/uL (150-450); WHITE BLOOD COUNT 6.4 10^3/uL (4.0-10.0)
[2019-08-01 06:55] LABS: ALBUMIN 1.9 GM/DL (3.2-5.2); ALT/SGPT 32 U/L (12-78); BILIRUBIN,TOTAL 0.6 MG/DL (0.2-1.0); BLOOD UREA NITROGEN 23 MG/DL (7-18); CALCIUM LEVEL 9.3 MG/DL (8.8-10.2); CARBON DIOXIDE LEVEL 24 MEQ/L (21-32); CHLORIDE LEVEL 109 MEQ/L (98-107); CREATININE FOR GFR 1.08 MG/DL (0.70-1.30); GLOMERULAR FILTRATION RATE > 60.0 (>42); GLUCOSE, FASTING 147 MG/DL (70-100); LDH LACTATE DEHYDROGENASE 880 U/L (87-241); POTASSIUM SERUM 3.9 MEQ/L (3.5-5.1); SODIUM LEVEL 143 MEQ/L (136-145); TOTAL PROTEIN 5.6 GM/DL (6.4-8.2); URIC ACID 9.6 MG/DL (3.5-7.2)
[2019-08-01] MEDS ORDERED: ACETAMINOPHEN TAB 650MG DOSE (2X325MG) PO ONE (08:00)
[2019-08-01] MEDS ORDERED: diphenhydrAMINE INJ 50MG/ML VIAL (J1200) IV ONE (08:00)
[2019-08-01] MEDS: ALLOPURINOL 300 MG TAB PO SCH (08:19)
[2019-08-01] MEDS: predniSONE 20 MG TAB PO SCH (08:19)
[2019-08-01] MEDS: HEPARIN SOD (PORCINE) 5000 UNITS/ML VIAL SC SCH ×2 (08:19→20:44)
[2019-08-01] MEDS: SODIUM CHLORIDE 0.9% INJ 10 ML SYR IV SCH (08:20)
[2019-08-01] MEDS: LISINOPRIL 40 MG TAB PO SCH (08:20)
[2019-08-01] MEDS: ASPIRIN 81 MG ENTERIC TAB PO SCH (08:20)
[2019-08-01] MEDS ORDERED: riTUXimab (INITIAL INFUSION) IV ONE ×3 (09:00)
[2019-08-01] MEDS: FUROSEMIDE 20 MG/2 ML VIAL (J1940) IV SCH ×2 (09:00→17:31)
[2019-08-01 09:14] LABS: PHOSPHORUS LEVEL 3.5 MG/DL (2.5-4.9)
--- NOTE | 2019-08-01 11:29 | ONC.PHACK ---
CHEMO ADMIN CHECKLIST Order Contains Pt ID: Name, Order on Chemo Order Form?: Yes Order Form Includes ALL: Correct Tx Day, Correct Date, Correct Cycle Number Pt ID on Order form Matches: Pt ID on PHA Label Med on Chemo OrderForm Matches: PHA Label, Med Used for Preparation [facility] Aug 01, 2019 11:29
--- NOTE | 2019-08-01 17:40 | IPNPDOC ---
Date Seen The patient was seen on 08/01/19. Progress Note HISTORY OF PRESENT ILLNESS: 69-year-old male with past medical history of hypertension, diffuse large B-cell lymphoma is sent in for direct admission by oncologist to receive inpatient chemotherapy. Oncologist is very concerned about tumor lysis syndrome, for which patient will be admitted and monitored while undergoing chemotherapy. Patient's only complaint at this time is nausea, denies any shortness of breath, chest pain, abdominal pain, diarrhea or constipation. Patient is audible started on allopurinol and prednisone in preparation for chemotherapy. Case discussed with Dr. Guzman in detail, will undergo R-CHOP therapy starting tomorrow and have labs drawn twice a day to monitor for tumor lysis syndrome. 07/31/2019 Patient resting comfortably in bed, reports nausea, no other complaints. He will be getting an Axtdjh-t-Smjr and chemotherapy starting today. 08/01/2019 Patient comfortable, receiving rituximab at this time, without any complaints. 10 point review of system was negative except for above PHYSICAL EXAMINATION: VITAL SIGNS: Please see below. GENERAL: No distress HEENT: Normocephalic, atraumatic, moist mucous membranes NECK: Supple CARDIOVASCULAR EXAMINATION: S1, S2, no murmurs RESPIRATORY EXAMINATION: Clear to auscultation, no wheezing ABDOMINAL EXAMINATION: Soft, mild right upper quadrant tenderness, nondistended, positive bowel sounds EXTREMITIES: Trace bilateral lower extremity pitting edema SKIN: No rash NEUROLOGICAL EXAMINATION: Alert and oriented 3, no focal deficits PSYCHIATRIC EXAMINATION: Calm and cooperative LABORATORY DATA: See below. MICROBIOLOGY: Please see below. ASSESSMENT: 69-year-old male with diffuse large B-cell lymphoma will be admitted for inpatient chemotherapy and monitored for tumor lysis syndrome. PLAN: 1. Diffuse large B-cell lymphoma. Patient received rituximab today, continue allopurinol and prednisone, tumor lysis labs (BMP, calcium, phosphorus, LDH and uric acid) twice a day. Plan is to monitor the patient for 3-4 days post chemotherapy for tumor lysis syndrome. TTE reviewed, normal EF, grade 1 diastolic dysfunction, continue telemetry monitoring, continue normal saline at 200 mL per hour, started Lasix 20 mg IV twice a day to augment urine output. 2. Hypertension. Continue home lisinopril DVT prophylaxis: Heparin subcutaneous GI prophylaxis: Not needed VS, I&O, 24H, Fishbone Vital Signs/I&O Vital Signs Date Time Temp Pulse Resp B/P (MAP) Pulse Ox O2 Delivery O2 Flow Rate FiO2 08/01/19 16:00 97.4 83 18 145/83 (103) 93 Room Air 07/31/19 17:25 2 I&O- Last 24 Hours up to 6 AM 08/01/19 06:00 Intake Total 1892 ml Output Total 1000 ml Balance 892 ml Laboratory Data 24H LABS Laboratory Tests 2 07/31/19 18:39: Anion Gap 12, Glomerular Filtration Rate > 60.0, Uric Acid 8.4H, Calcium Level 10.0, Phosphorus Level 4.0#, Total Bilirubin 0.9, Aspartate Amino Transf (AST/SGOT) 100H, Alanine Aminotransferase (ALT/SGPT) 40, Alkaline Phosphatase 654H, Lactate Dehydrogenase 891H, Total Protein 6.1L, Albumin 2.3L, Albumin/Globulin Ratio 0.61L 08/01/19 06:01: Anion Gap 10, Glomerular Filtration Rate > 60.0, Uric Acid 9.6H, Calcium Level 9.3, Phosphorus Level 3.5, Total Bilirubin 0.6, Aspartate Amino Transf (AST/SGOT) 87H, Alanine Aminotransferase (ALT/SGPT) 32, Alkaline Phosphatase 518H, Lactate Dehydrogenase 880H, Total Protein 5.6L, Albumin 1.9L, Albumin/Globulin Ratio 0.51L, Nucleated Red Blood Cells % (auto) 0.0, Magnesium Level 2.0 08/01/19 10:10: Hepatitis B Surface Antigen NEGATIVE 08/01/19 16:57: CBC/BMP Laboratory Tests 07/31/19 18:39 08/01/19 06:01 GHASSAN GRAJEDA MD Aug 01, 2019 17:40
[2019-08-01] MEDS ORDERED: MIRALAX *UNIT DOSE* 17GM PACKET PO ONE (18:00)
[2019-08-01] MEDS ORDERED: FUROSEMIDE 20 MG/2 ML VIAL (J1940) IV ONE (18:00)
[2019-08-01 18:25] LABS: ALT/SGPT 34 U/L (12-78); BILIRUBIN,TOTAL 0.6 MG/DL (0.2-1.0); BLOOD UREA NITROGEN 23 MG/DL (7-18); CALCIUM LEVEL 9.2 MG/DL (8.8-10.2); CARBON DIOXIDE LEVEL 24 MEQ/L (21-32); CHLORIDE LEVEL 109 MEQ/L (98-107); CREATININE FOR GFR 0.93 MG/DL (0.70-1.30); GLOMERULAR FILTRATION RATE > 60.0 (>42); GLUCOSE, FASTING 115 MG/DL (70-100); LDH LACTATE DEHYDROGENASE 1701 U/L (87-241); PHOSPHORUS LEVEL 3.1 MG/DL (2.5-4.9); POTASSIUM SERUM 3.9 MEQ/L (3.5-5.1); SODIUM LEVEL 142 MEQ/L (136-145); TOTAL PROTEIN 5.5 GM/DL (6.4-8.2); URIC ACID 8.6 MG/DL (3.5-7.2)
[2019-08-02] VITALS (7 sets, daily range): BP systolic 121–170; BP diastolic 66–79
[2019-08-02] MEDS: NS 1,000 ML IV SCH ×2 (01:49→07:22)
[2019-08-02] MEDS: traMADol 50 MG TAB PO PRN ×2 (02:38→12:10)
[2019-08-02] MEDS ORDERED: MIRALAX *UNIT DOSE* 17GM PACKET PO PRN (06:00)
[2019-08-02 06:26] LABS: HEMATOCRIT 35.7 % (42.0-52.0); HEMOGLOBIN 11.4 g/dl (13.5-17.5); MEAN CORPUSCULAR HEMOGLOBIN 27.7 pg (27.0-33.0); MEAN CORPUSCULAR HGB CONC 31.9 g/dl (32.0-36.5); MEAN CORPUSCULAR VOLUME 86.7 fl (80.0-96.0); PLATELET COUNT, AUTOMATED 222 10^3/uL (150-450); RED BLOOD COUNT 4.12 10^6/uL (4.30-6.10); WHITE BLOOD COUNT 11.5 10^3/uL (4.0-10.0)
[2019-08-02 07:05] LABS: ALT/SGPT 30 U/L (12-78); BILIRUBIN,TOTAL 0.7 MG/DL (0.2-1.0); BLOOD UREA NITROGEN 23 MG/DL (7-18); CALCIUM LEVEL 9.3 MG/DL (8.8-10.2); CARBON DIOXIDE LEVEL 23 MEQ/L (21-32); CHLORIDE LEVEL 110 MEQ/L (98-107); CREATININE FOR GFR 0.81 MG/DL (0.70-1.30); GLOMERULAR FILTRATION RATE > 60.0 (>42); GLUCOSE, FASTING 90 MG/DL (70-100); MAGNESIUM LEVEL 1.8 MG/DL (1.8-2.4); PHOSPHORUS LEVEL 3.1 MG/DL (2.5-4.9); POTASSIUM SERUM 3.6 MEQ/L (3.5-5.1); SODIUM LEVEL 142 MEQ/L (136-145); TOTAL PROTEIN 5.1 GM/DL (6.4-8.2); URIC ACID 8.3 MG/DL (3.5-7.2)
[2019-08-02 08:09] LABS: LDH LACTATE DEHYDROGENASE 2029 U/L (87-241)
[2019-08-02] MEDS: HEPARIN SOD (PORCINE) 5000 UNITS/ML VIAL SC SCH ×2 (09:08→21:03)
[2019-08-02] MEDS: FUROSEMIDE 20 MG/2 ML VIAL (J1940) IV SCH ×2 (09:08→17:03)
[2019-08-02] MEDS: FILGRASTIM 480 MCG/0.8 ML SYRINGE (J1442) SC SCH (09:08)
[2019-08-02] MEDS: MORPHINE 2 MG/ML 1ML VIAL (J2270) IV PRN (09:09)
[2019-08-02] MEDS: LISINOPRIL 40 MG TAB PO SCH (09:10)
[2019-08-02] MEDS: ONDANSETRON 4 MG TAB (S0181) PO PRN ×2 (09:10→21:03)
[2019-08-02] MEDS: predniSONE 20 MG TAB PO SCH (09:10)
[2019-08-02] MEDS: ASPIRIN 81 MG ENTERIC TAB PO SCH (09:10)
[2019-08-02] MEDS: ALLOPURINOL 300 MG TAB PO SCH (09:10)
[2019-08-02] MEDS: SODIUM CHLORIDE 0.9% INJ 10 ML SYR IV SCH (09:11)
[2019-08-02] MEDS: D5W/0.45% SODIUM CHLORIDE 1,000 ML IV SCH ×3 (12:18→21:04)
--- NOTE | 2019-08-02 16:20 | IPNPDOC ---
Date Seen The patient was seen on 08/02/19. Progress Note HISTORY OF PRESENT ILLNESS: 69-year-old male with past medical history of hypertension, diffuse large B-cell lymphoma is sent in for direct admission by oncologist to receive inpatient chemotherapy. Oncologist is very concerned about tumor lysis syndrome, for which patient will be admitted and monitored while undergoing chemotherapy. Patient's only complaint at this time is nausea, denies any shortness of breath, chest pain, abdominal pain, diarrhea or constipation. Patient is audible started on allopurinol and prednisone in preparation for chemotherapy. Case discussed with Dr. Guzman in detail, will undergo R-CHOP therapy starting tomorrow and have labs drawn twice a day to monitor for tumor lysis syndrome. 07/31/2019 Patient resting comfortably in bed, reports nausea, no other complaints. He will be getting an Eokkpb-o-Wkxr and chemotherapy starting today. 08/01/2019 Patient comfortable, receiving rituximab at this time, without any complaints. 08/02/2019 Patient reports headache, nausea, and generalized malaise, unable to sleep overnight because of it. Tolerating diet, continues to have good urine output, no other complaints. 10 point review of system was negative except for above PHYSICAL EXAMINATION: VITAL SIGNS: Please see below. GENERAL: No distress HEENT: Normocephalic, atraumatic, moist mucous membranes NECK: Supple CARDIOVASCULAR EXAMINATION: S1, S2, no murmurs RESPIRATORY EXAMINATION: Clear to auscultation, no wheezing ABDOMINAL EXAMINATION: Soft, mild right upper quadrant tenderness, nondistended, positive bowel sounds EXTREMITIES: bilateral lower extremity pitting edema SKIN: No rash NEUROLOGICAL EXAMINATION: Alert and oriented 3, no focal deficits PSYCHIATRIC EXAMINATION: Calm and cooperative LABORATORY DATA: See below. MICROBIOLOGY: Please see below. ASSESSMENT: 69-year-old male with diffuse large B-cell lymphoma will be admitted for inpatient chemotherapy and monitored for tumor lysis syndrome. PLAN: 1. Diffuse large B-cell lymphoma. Status post R-CHOP, continue allopurinol and prednisone, tumor lysis labs (BMP, calcium, phosphorus, LDH and uric acid) twice a day. Plan is to monitor the patient for 3-4 days post chemotherapy for tumor lysis syndrome. TTE reviewed, normal EF, grade 1 diastolic dysfunction, continue telemetry mo nitoring, IV fluids, switched to D5 half normal saline at 200 mL per hour, continue Lasix 20 mg IV twice a day to augment urine output, urine specific gravity currently at 1.01, which is our current goal. 2. Hypertension. Continue home lisinopril DVT prophylaxis: Heparin subcutaneous GI prophylaxis: Not needed VS, I&O, 24H, Fishbone Vital Signs/I&O Vital Signs Date Time Temp Pulse Resp B/P (MAP) Pulse Ox O2 Delivery O2 Flow Rate FiO2 08/02/19 12:40 16 Room Air 08/02/19 12:00 97.5 93 150/76 (100) 93 07/31/19 17:25 2 I&O- Last 24 Hours up to 6 AM 08/02/19 06:00 Intake Total 4950 ml Output Total 4475 ml Balance 475 ml Laboratory Data 24H LABS Laboratory Tests 2 08/01/19 16:57: Anion Gap 9, Glomerular Filtration Rate > 60.0, Uric Acid 8.6H, Calcium Level 9.2, Phosphorus Level 3.1, Total Bilirubin 0.6, Aspartate Amino Transf (AST/SGOT) 151H, Alanine Aminotransferase (ALT/SGPT) 34, Alkaline Phosphatase 50 4H, Lactate Dehydrogenase 1701H, Total Protein 5.5L, Albumin 2.0L, Albumin/Globulin Ratio 0.57L 08/02/19 06:11: Anion Gap 9, Glomerular Filtration Rate > 60.0, Uric Acid 8.3H, Calcium Level 9.3, Phosphorus Level 3.1, Total Bilirubin 0.7, Aspartate Amino Transf (AST/SGOT) 170H, Alanine Aminotransferase (ALT/SGPT) 30, Alkaline Phosphatase 491H, Lactate Dehydrogenase 2029H, Total Protein 5.1L, Albumin 2.0L, Albumin/Globulin Ratio 0.65L, Nucleated Red Blood Cells % (auto) 0.0, Magnesium Level 1.8 08/02/19 09:30: Urine Specific Healy 1.012 CBC/BMP Laboratory Tests 08/01/19 16:57 08/02/19 06:11 GHASSAN GRAJEDA MD Aug 02, 2019 16:20
[2019-08-02 17:48] LABS: ALBUMIN 1.8 GM/DL (3.2-5.2); ALT/SGPT 28 U/L (12-78); BILIRUBIN,TOTAL 0.7 MG/DL (0.2-1.0); BLOOD UREA NITROGEN 22 MG/DL (7-18); CALCIUM LEVEL 8.3 MG/DL (8.8-10.2); CARBON DIOXIDE LEVEL 24 MEQ/L (21-32); CHLORIDE LEVEL 106 MEQ/L (98-107); CREATININE FOR GFR 0.86 MG/DL (0.70-1.30); GLOMERULAR FILTRATION RATE > 60.0 (>42); GLUCOSE, FASTING 142 MG/DL (70-100); LDH LACTATE DEHYDROGENASE 1620 U/L (87-241); PHOSPHORUS LEVEL 3.5 MG/DL (2.5-4.9); POTASSIUM SERUM 3.7 MEQ/L (3.5-5.1); SODIUM LEVEL 140 MEQ/L (136-145); TOTAL PROTEIN 5.3 GM/DL (6.4-8.2); URIC ACID 7.4 MG/DL (3.5-7.2)
[2019-08-03] MEDS: D5W/0.45% SODIUM CHLORIDE 1,000 ML IV SCH ×5 (02:01→23:59)
[2019-08-03] MEDS: ONDANSETRON 4 MG TAB (S0181) PO PRN ×2 (02:55→12:04)
[2019-08-03] MEDS: traMADol 50 MG TAB PO PRN ×2 (02:56→16:37)
[2019-08-03 04:00] VITALS: BP 185/91
[2019-08-03] MEDS: MORPHINE 2 MG/ML 1ML VIAL (J2270) IV PRN ×2 (04:20→08:35)
[2019-08-03 06:22] LABS: HEMATOCRIT 31.9 % (42.0-52.0); HEMOGLOBIN 10.2 g/dl (13.5-17.5); MEAN CORPUSCULAR HEMOGLOBIN 27.9 pg (27.0-33.0); MEAN CORPUSCULAR VOLUME 87.4 fl (80.0-96.0); PLATELET COUNT, AUTOMATED 185 10^3/uL (150-450); RED BLOOD COUNT 3.65 10^6/uL (4.30-6.10); WHITE BLOOD COUNT 17.6 10^3/uL (4.0-10.0)
[2019-08-03 06:54] LABS: ALBUMIN 1.7 GM/DL (3.2-5.2); ALT/SGPT 28 U/L (12-78); BILIRUBIN,TOTAL 0.4 MG/DL (0.2-1.0); BLOOD UREA NITROGEN 23 MG/DL (7-18); CALCIUM LEVEL 8.8 MG/DL (8.8-10.2); CARBON DIOXIDE LEVEL 25 MEQ/L (21-32); CHLORIDE LEVEL 106 MEQ/L (98-107); CREATININE FOR GFR 0.68 MG/DL (0.70-1.30); GLOMERULAR FILTRATION RATE > 60.0 (>42); GLUCOSE, FASTING 130 MG/DL (70-100); LDH LACTATE DEHYDROGENASE 1172 U/L (87-241); MAGNESIUM LEVEL 1.8 MG/DL (1.8-2.4); PHOSPHORUS LEVEL 2.8 MG/DL (2.5-4.9); POTASSIUM SERUM 3.3 MEQ/L (3.5-5.1); SODIUM LEVEL 139 MEQ/L (136-145); TOTAL PROTEIN 5.2 GM/DL (6.4-8.2); URIC ACID 7.1 MG/DL (3.5-7.2)
[2019-08-03 08:28] VITALS: BP 162/90
[2019-08-03] MEDS: ASPIRIN 81 MG ENTERIC TAB PO SCH (08:34)
[2019-08-03] MEDS: FUROSEMIDE 20 MG/2 ML VIAL (J1940) IV SCH ×2 (08:34→16:36)
[2019-08-03] MEDS: predniSONE 20 MG TAB PO SCH (08:34)
[2019-08-03] MEDS: LISINOPRIL 40 MG TAB PO SCH (08:34)
[2019-08-03] MEDS: HEPARIN SOD (PORCINE) 5000 UNITS/ML VIAL SC SCH ×2 (08:34→20:07)
[2019-08-03] MEDS: ALLOPURINOL 300 MG TAB PO SCH (08:35)
--- NOTE | 2019-08-03 09:16 | IPNPDOC ---
Text Note Date of Service The patient was seen on 08/03/19. NOTE Subjective: Patient seen and examined at bedside. No acute overnight events reported. No new medical complaints this morning. Denies chest pain, shortness of breath, abdominal pain, N/V/D. Objective: General: NAD, lying comfortably in bed HEENT: NC/AT, EOMI Lungs: CTA B/L Heart: +S1S2, RRR Abd: soft, NT, +BS Ext: no edema ASSESSMENT: 69-year-old male with diffuse large B-cell lymphoma will be admitted for inpatient chemotherapy and monitored for tumor lysis syndrome. PLAN: 1. Diffuse large B-cell lymphoma. Status post R-CHOP, continue allopurinol and prednisone, tumor lysis labs (BMP, calcium, phosphorus, LDH and uric acid) twice a day. Plan is to monitor the patient for 3-4 days post chemotherapy for tumor lysis syndrome. TTE reviewed, normal EF, grade 1 diastolic dysfunction, continue telemetry monitoring, IV fluids, switched to D5 half normal saline at 200 mL per hour, continue Lasix 20 mg IV twice a day to augment urine output, urine specific gravity currently at 1.01, which is our current goal. 2. Hypertension. Continue home lisinopril 3. DVT prophylaxis: Heparin subcutaneous Dispo: continue to follow clinically VS,Lakshmi, I+O VS, Lakshmi, I+O Laboratory Tests 08/02/19 16:49 08/03/19 05:56 Vital Signs Date Time Temp Pulse Resp B/P (MAP) Pulse Ox O2 Delivery O2 Flow Rate FiO2 08/03/19 08:35 17 08/03/19 08:28 98.3 77 162/90 (114) 97 Room Air 07/31/19 17:25 2 I&O- Last 24 Hours up to 6 AM 08/03/19 06:00 Intake Total 6880 ml Output Total 5025 ml Balance 1855 ml MARIELOS SABILLON MD Aug 03, 2019 09:16
[2019-08-03] MEDS: SODIUM CHLORIDE 0.9% INJ 10 ML SYR IV SCH (10:39)
[2019-08-03 11:54] VITALS: BP 177/88
[2019-08-03] MEDS: FILGRASTIM 480 MCG/0.8 ML SYRINGE (J1442) SC SCH (12:05)
[2019-08-03 16:13] VITALS: BP 128/74
[2019-08-03] MEDS ORDERED: POTASSIUM CHLORIDE 10 MEQ SR TABLET PO ONE ×2 (17:00→19:30)
[2019-08-03 17:33] LABS: ALBUMIN 1.7 GM/DL (3.2-5.2); ALT/SGPT 34 U/L (12-78); BILIRUBIN,TOTAL 0.4 MG/DL (0.2-1.0); BLOOD UREA NITROGEN 22 MG/DL (7-18); CALCIUM LEVEL 8.8 MG/DL (8.8-10.2); CARBON DIOXIDE LEVEL 26 MEQ/L (21-32); CHLORIDE LEVEL 104 MEQ/L (98-107); CREATININE FOR GFR 0.78 MG/DL (0.70-1.30); GLOMERULAR FILTRATION RATE > 60.0 (>42); GLUCOSE, FASTING 205 MG/DL (70-100); LDH LACTATE DEHYDROGENASE 1049 U/L (87-241); PHOSPHORUS LEVEL 3.3 MG/DL (2.5-4.9); POTASSIUM SERUM 3.4 MEQ/L (3.5-5.1); SODIUM LEVEL 136 MEQ/L (136-145); TOTAL PROTEIN 4.9 GM/DL (6.4-8.2); URIC ACID 6.5 MG/DL (3.5-7.2)
[2019-08-03 20:00] VITALS: BP 142/76
[2019-08-04] MEDS: MORPHINE 2 MG/ML 1ML VIAL (J2270) IV PRN (00:18)
[2019-08-04] MEDS: ONDANSETRON 4 MG TAB (S0181) PO PRN ×3 (03:01→16:20)
[2019-08-04 04:00] VITALS: BP 160/84
[2019-08-04 06:24] LABS: HEMATOCRIT 34.3 % (42.0-52.0); HEMOGLOBIN 10.6 g/dl (13.5-17.5); MEAN CORPUSCULAR HEMOGLOBIN 27.2 pg (27.0-33.0); MEAN CORPUSCULAR HGB CONC 30.9 g/dl (32.0-36.5); MEAN CORPUSCULAR VOLUME 87.9 fl (80.0-96.0); PLATELET COUNT, AUTOMATED 214 10^3/uL (150-450); WHITE BLOOD COUNT 20.5 10^3/uL (4.0-10.0)
[2019-08-04 06:46] LABS: ALBUMIN 1.8 GM/DL (3.2-5.2); ALT/SGPT 52 U/L (12-78); BILIRUBIN,TOTAL 0.5 MG/DL (0.2-1.0); BLOOD UREA NITROGEN 21 MG/DL (7-18); CALCIUM LEVEL 9.2 MG/DL (8.8-10.2); CARBON DIOXIDE LEVEL 27 MEQ/L (21-32); CHLORIDE LEVEL 106 MEQ/L (98-107); CREATININE FOR GFR 0.64 MG/DL (0.70-1.30); GLOMERULAR FILTRATION RATE > 60.0 (>42); GLUCOSE, FASTING 109 MG/DL (70-100); LDH LACTATE DEHYDROGENASE 857 U/L (87-241); POTASSIUM SERUM 3.9 MEQ/L (3.5-5.1); SODIUM LEVEL 139 MEQ/L (136-145); TOTAL PROTEIN 5.5 GM/DL (6.4-8.2); URIC ACID 5.8 MG/DL (3.5-7.2)
[2019-08-04 08:00] VITALS: BP 124/66
--- NOTE | 2019-08-04 08:52 | IPNPDOC ---
Text Note Date of Service The patient was seen on 08/04/19. NOTE Subjective: Patient seen and examined at bedside. No acute overnight events reported. No new medical complaints this morning. Denies chest pain, shortness of breath, abdominal pain, N/V/D. Objective: General: NAD, lying comfortably in bed HEENT: NC/AT, EOMI Lungs: CTA B/L Heart: +S1S2, RRR Abd: soft, NT, +BS Ext: RUE peripheral edema ASSESSMENT: 69-year-old male with diffuse large B-cell lymphoma will be admitted for inpatient chemotherapy and monitored for tumor lysis syndrome. #Diffuse large B-cell lymphoma. Status post R-CHOP - continue allopurinol - continue prednisone 80 mg, completing 5 days today, then taper - tumor lysis labs continue to improve or within normal limits - continue Neupogen until discharge - plan to monitor the patient for 3-4 days post chemotherapy for tumor lysis syndrome - TTE reviewed, normal EF, grade 1 diastolic dysfunction, continue telemetry monitoring - d/c IV fluids and lasix today #Hypertension. Continue home lisinopril #DVT prophylaxis: Heparin subcutaneous Dispo: continue to follow clinically; anticipate d/c in 24-48 hours; rapid follow up with oncology on discharge VS,Lakshmi, I+O VS, Lakshmi, I+O Laboratory Tests 08/03/19 16:36 08/04/19 05:54 Vital Signs Date Time Temp Pulse Resp B/P (MAP) Pulse Ox O2 Delivery O2 Flow Rate FiO2 08/04/19 04:00 97.9 84 16 160/84 (109) 95 Room Air 07/31/19 17:25 2 I&O- Last 24 Hours up to 6 AM 08/04/19 06:00 Intake Total 5820 ml Output Total 6400 ml Balance -580 ml MARIELOS SABILLON MD Aug 04, 2019 08:52
[2019-08-04] MEDS: FILGRASTIM 480 MCG/0.8 ML SYRINGE (J1442) SC SCH (09:00)
[2019-08-04] MEDS: predniSONE 20 MG TAB PO SCH (10:02)
[2019-08-04] MEDS: LISINOPRIL 40 MG TAB PO SCH (10:03)
[2019-08-04] MEDS: ASPIRIN 81 MG ENTERIC TAB PO SCH (10:03)
[2019-08-04] MEDS: ALLOPURINOL 300 MG TAB PO SCH (10:03)
[2019-08-04] MEDS: HEPARIN SOD (PORCINE) 5000 UNITS/ML VIAL SC SCH ×2 (10:04→20:18)
[2019-08-04] MEDS: SODIUM CHLORIDE 0.9% INJ 10 ML SYR IV SCH (10:05)
[2019-08-04 16:00] VITALS: BP 130/70
[2019-08-04] MEDS ORDERED: FILGRASTIM 480 MCG/0.8 ML SYRINGE (J1442) SC ONE (16:00)
[2019-08-04 20:20] VITALS: BP 146/70
--- NOTE | 2019-08-04 21:11 | ONC.PHACK ---
CHEMO ADMIN CHECKLIST Order Contains Pt ID: Name, Order on Chemo Order Form?: Yes Order Form Includes ALL: Correct Tx Day, Correct Date, Correct Cycle Number Pt ID on Order form Matches: Pt ID on PHA Label Med on Chemo OrderForm Matches: PHA Label, Med Used for Preparation [facility] Aug 04, 2019 21:11
[2019-08-05 00:16] VITALS: BP 151/86
[2019-08-05 04:59] VITALS: BP 160/70
[2019-08-05 05:57] LABS: HEMOGLOBIN 10.3 g/dl (13.5-17.5); MEAN CORPUSCULAR HEMOGLOBIN 27.5 pg (27.0-33.0); MEAN CORPUSCULAR HGB CONC 32.2 g/dl (32.0-36.5); MEAN CORPUSCULAR VOLUME 85.6 fl (80.0-96.0); PLATELET COUNT, AUTOMATED 194 10^3/uL (150-450); RED BLOOD COUNT 3.74 10^6/uL (4.30-6.10); WHITE BLOOD COUNT 14.5 10^3/uL (4.0-10.0)
[2019-08-05] MEDS ORDERED: FUROSEMIDE 40 MG/4 ML VIAL (J1940) IV ONE (06:00)
[2019-08-05 06:32] LABS: ALBUMIN 1.9 GM/DL (3.2-5.2); ALT/SGPT 54 U/L (12-78); BILIRUBIN,TOTAL 0.9 MG/DL (0.2-1.0); BLOOD UREA NITROGEN 21 MG/DL (7-18); CALCIUM LEVEL 8.9 MG/DL (8.8-10.2); CARBON DIOXIDE LEVEL 27 MEQ/L (21-32); CHLORIDE LEVEL 106 MEQ/L (98-107); CREATININE FOR GFR 0.58 MG/DL (0.70-1.30); GLOMERULAR FILTRATION RATE > 60.0 (>42); GLUCOSE, FASTING 92 MG/DL (70-100); LDH LACTATE DEHYDROGENASE 637 U/L (87-241); NT-PRO BNP 4282 PG/ML (<125); POTASSIUM SERUM 3.7 MEQ/L (3.5-5.1); SODIUM LEVEL 139 MEQ/L (136-145); TOTAL PROTEIN 5.5 GM/DL (6.4-8.2); URIC ACID 4.8 MG/DL (3.5-7.2)
[2019-08-05 08:00] VITALS: BP 164/74
[2019-08-05] MEDS ORDERED: POTASSIUM CHLORIDE 10 MEQ SR TABLET PO ONE (09:00)
[2019-08-05] MEDS: SODIUM CHLORIDE 0.9% INJ 10 ML SYR IV SCH (09:00)
[2019-08-05] MEDS ORDERED: predniSONE 20 MG TAB PO ONE (09:00)
[2019-08-05] MEDS: ASPIRIN 81 MG ENTERIC TAB PO SCH (10:56)
[2019-08-05] MEDS: ALLOPURINOL 300 MG TAB PO SCH (10:57)
[2019-08-05] MEDS: LISINOPRIL 40 MG TAB PO SCH (10:57)
[2019-08-05] MEDS: HEPARIN SOD (PORCINE) 5000 UNITS/ML VIAL SC SCH (10:57)
[2019-08-05] MEDS ORDERED: LACTULOSE 20 GM/30 ML SYRUP UD PO ONE (11:00)
[2019-08-05 12:00] VITALS: BP 158/72
--- NOTE | 2019-08-05 18:19 | DS.PDOC ---
Discharge Summary General Date of Admission Jul 30, 2019 at 18:01 Date of Discharge 08/05/2019 Attending Physician: GHASSAN GRAJEDA MD Discharge Summary PROCEDURES PERFORMED DURING STAY: None. ADMITTING DIAGNOSES: 1. Tumor lysis syndrome. DISCHARGE DIAGNOSES: 1. Tumor lysis syndrome. COMPLICATIONS/CHIEF COMPLAINT: B-Cell Lymphoma. HISTORY OF PRESENT ILLNESS: 69-year-old male with past nuchal history of diffuse large B-cell lymphoma was admitted for chemotherapy and monitoring for tumor lysis syndrome. Patient underwent R CHOP therapy, tolerated well, chemotherapy, labs were monitored twice a day, patient treated with aggressive IV hydration along with IV Lasix to maintain adequate urine output. Patient remained stable, on telemetry monitoring, without any acute issues during and post chemotherapy. Patient is currently stable, no severe lab abnormalities, no complaint at this time. Patient is clinically hemodynamically stable for discharge and outpatient follow-up with hematology/oncology and PCP. Patient received Neupogen during hospitalization, will receive Neulasta at oncologist's office. HOSPITAL COURSE: As above. DISCHARGE MEDICATIONS: Please see below. ALLERGIES: Please see below. PHYSICAL EXAMINATION: VITAL SIGNS: Please see below. GENERAL: No distress HEENT: Normocephalic, atraumatic, moist mucous membranes NECK: Supple CARDIOVASCULAR EXAMINATION: S1, S2, no murmurs RESPIRATORY EXAMINATION: Clear to auscultation, no wheezing ABDOMINAL EXAMINATION: Soft, nontender, nondistended, positive bowel sounds EXTREMITIES: Range of motion intact SKIN: No rash NEUROLOGICAL EXAMINATION: Alert and oriented 3, no focal deficits PSYCHIATRIC EXAMINATION: Calm and cooperative LABORATORY DATA: Please see below. PROGNOSIS: Fair ACTIVITY: As tolerated. DIET: Regular DISCHARGE PLAN: Patient will follow up with oncologist for Neulasta and PCP in 1-2 weeks DISPOSITION: 01 Home, Self-Care. DISCHARGE INSTRUCTIONS: 1. As above. DISCHARGE CONDITION: Stable. TIME SPENT ON DISCHARGE: Greater than 36 minutes. Vital Signs/I&Os Vital Signs Date Time Temp Pulse Resp B/P (MAP) Pulse Ox O2 Delivery O2 Flow Rate FiO2 08/05/19 12:00 98.3 68 17 158/72 (100) 95 Room Air 07/31/19 17:25 2 l I&O- Last 24 Hours up to 6 AM 08/05/19 06:00 Intake Total 1940 ml Output Total 1900 ml Balance 40 ml Laboratory Data Labs 24H Laboratory Tests 2 08/05/19 05:08: Nucleated Red Blood Cells % (auto) 0.0, Anion Gap 6L, Glomerular Filtration Rate > 60.0, Uric Acid 4.8, Calcium Level 8.9, Magnesium Level 2.0, Total Bilirubin 0.9#, Aspartate Amino Transf (AST/SGOT) 63H, Alanine Aminotransferase (ALT/SGPT) 54, Alkaline Phosphatase 465H, Lactate Dehydrogenase 637H, UW-Wlz-F-Type Natriuretic Peptide 4282H, Total Protein 5.5L, Albumin 1.9L, Albumin/Globulin Ratio 0.53L CBC/BMP Laboratory Tests 08/05/19 05:08 Discharge Medications Scheduled Allopurinol (Zyloprim) 300 Mg Tablet, 300 MG PO DAILY for tumor lysis prophylaxis Aspirin (Ecotrin) 81 Mg Tablet.dr, 1 TAB PO DAILY for pain, (Reported) Escitalopram Oxalate (Lexapro) 10 Mg Tablet, 1 TAB PO DAILY, (Reported) Lisinopril (Lisinopril) 40 Mg Tablet, 40 MG PO DAILY, (Reported) Lorazepam (Ativan) 1 Mg Tablet, 1 MG PO ONCE for preprocedure one tab one hour before procedure may repeat Prednisone (Prednisone) 20 Mg Tablet, 80 MG PO ASDIRECTED take 4 tabs daily for 5 days every 3 weeks or as directed Scheduled PRN Ondansetron HCl (Ondansetron HCl) 8 Mg Tablet, 8 MG PO Q6H PRN for NAUSEA OR VOMITING Oxycodone HCl (Oxycodone HCl ER) 10 Mg Tab.er.12h, 5 MG PO BIDP PRN for pain, (Reported) Allergies Coded Allergies: No Known Allergies (Unverified , 04/14/19) GHASSAN GRAJEAD MD Aug 05, 2019 18:19
== END 2019-08-05 15:28 | disposition home or self-care (01) | DRG 683 ==
LOC: M MSPAV 18:01 → M PCU 07-31 13:33
PROVIDERS: ADMIT Internal Medicine; ATTEND Internal Medicine
PROC: 3E04305 Introduction of Other Antineoplastic into Central Vein, Percutaneous Approach (ICD-10-PCS; 2019-07-31)
PROC: 02HV33Z Insertion of Infusion Device into Superior Vena Cava, Percutaneous Approach (ICD-10-PCS; principal; 2019-07-31 16:30)
PROC: 3E0430M Introduction of Antineoplastic, Monoclonal Antibody, into Central Vein, Percutaneous Approach (ICD-10-PCS; 2019-08-01)
DX: E88.3 Tumor lysis syndrome (principal); C83.33 Diffuse large B-cell lymphoma, intra-abdominal lymph nodes; I10 Essential (primary) hypertension; Z79.52 Long term (current) use of systemic steroids; Z79.899 Other long term (current) drug therapy; Z79.82 Long term (current) use of aspirin

== ENCOUNTER 2019-08-10 09:38 | Inpatient (IN) | payer MEDICARE ==
[~2019-08-10] VITALS: Ht 170.2 cm; Wt 77.3 kg
[2019-08-10] MEDS: MORPHINE 2 MG/ML 1ML VIAL (J2270) IV PRN ×4 (10:46→15:10)
--- NOTE | 2019-08-10 10:53 | REP ---
REASON: Abdominal pain. COMPARISON: 03/21/2019 The technique utilized in obtaining the radiograph has magnified the cardiac silhouette and accentuated the interstitial markings. The superior mediastinal structures are midline. The cardiac silhouette is unremarkable in size, shape, and position. The diaphragmatic surfaces of the lungs are regular, and the costophrenic angles are clear. The pulmonary back are clear. The imaged osseous structures are intact. A Mediport device has been placed since the last exam. The tip is in the superior vena cava. The lung back are hypo-expanded. IMPRESSION: There is no acute cardiopulmonary disease. Electronically Signed by Ronnell Pederson DO 08/10/2019 11:43 A
[2019-08-10] MEDS ORDERED: ONDANSETRON 4MG/2ML VIAL (J2405) IV ONE (11:00)
[2019-08-10] MEDS ORDERED: ISOVUE-370 76% 100ML VIAL (Q9967) As Ordered ONE (11:14)
[2019-08-10 11:22] LABS: EOS % 8.7 % (0.0-3.0); HEMATOCRIT 31.6 % (42.0-52.0); LYMPH % 69.6 % (24.0-44.0); MEAN CORPUSCULAR HEMOGLOBIN 27.9 pg (27.0-33.0); MEAN CORPUSCULAR HGB CONC 31.6 g/dl (32.0-36.5); NEUTROPHILS % 4.4 % (36.0-66.0); PLATELET COUNT, AUTOMATED 110 10^3/uL (150-450); RED BLOOD COUNT 3.59 10^6/uL (4.30-6.10)
[2019-08-10 11:35] LABS: INR 1.04; PROTHROMBIN TIME 13.3 SECONDS (11.8-14.0)
[2019-08-10] MEDS ORDERED: ACET1TAB55 PO (11:36)
[2019-08-10] MEDS ORDERED: IBUP200C28 PO (11:36)
[2019-08-10 11:37] LABS: PARTIAL THROMBOPLASTIN TIME 39.3 SECONDS (25.0-38.4)
[2019-08-10 11:59] LABS: BASO % 4.3 % (0.0-1.0); LYMPH # 0.2 10^3/uL (1.5-5.0); WHITE BLOOD COUNT 0.2 10^3/uL (4.0-10.0)
[2019-08-10] MEDS ORDERED: PIPERACILLIN/TAZOBACTAM SOD 4.5 GM in D5W MINI-BAG PLUS 50 ML IV ONE (12:15)
--- NOTE | 2019-08-10 12:21 | REP ---
REASON: Abdominal pain. PRIORS: None. CONTRAST: 100 mL Isovue 370. There is respiratory motion artifact obscuring the detail of the lung base images. Mild dependent subsegmental atelectatic change is present with possible tiny pleural effusions. These findings represent a change from the prior chest CT of 06/12/2019. There are multiple mixed enhancing low density masses throughout the liver too numerous to count or individually assessed. They vary in size from less than 1 cm to coalescing greater than 11 cm. Although technically different than the CTA abdomen 06/12/2019, these abnormalities were present on the prior exam. There is a small amount of ascites. The gallbladder is within normal limits. There is a small amount of fluid in the lesser sac. The pancreas is unchanged. The adrenal glands and kidneys are unchanged. There is a left renal cyst, status quo. There is no significant change in the appearance of the abdominal aorta or periaortic regions. There was no significant change in the appearance of bowel loops. CT PELVIS: There is free pelvic fluid. The bowel loops are within normal limits. There is no evidence of a pelvic mass or adenopathy. There is a small amount of fluid trapped in the right inguinal canal. This was not imaged on the prior exam. Bone window technique throughout the exam again shows spinal, hip, sacroiliac joint degenerative changes. IMPRESSION: 1. There is evidence of hepatic neoplasm . Metastasis or primary 2. Ascites as described above. 3. Tiny bilateral pleural effusions. 4. Other findings as described above. Electronically Signed by Ronnell Pederson DO 08/10/2019 12:26 P
[2019-08-10 12:53] LABS: ALBUMIN 2.3 GM/DL (3.2-5.2); ALT/SGPT 37 U/L (12-78); BILIRUBIN,DIRECT 0.2 MG/DL (0.0-0.2); BILIRUBIN,TOTAL 0.5 MG/DL (0.2-1.0); BLOOD UREA NITROGEN 10 MG/DL (7-18); CALCIUM LEVEL 8.3 MG/DL (8.8-10.2); CARBON DIOXIDE LEVEL 30 MEQ/L (21-32); CHLORIDE LEVEL 103 MEQ/L (98-107); CK-MB VALUE MASS < 1.0 NG/ML (<3.6); CPK CREATINE PHOSPHOKINASE 17 U/L (39-308); CREATININE FOR GFR 0.58 MG/DL (0.70-1.30); GLOMERULAR FILTRATION RATE > 60.0 (>42); GLUCOSE, FASTING 81 MG/DL (70-100); LIPASE 26 U/L (73-393); MB/CK RELATIVE INDEX 5.88 (< OR =4); POTASSIUM SERUM 3.8 MEQ/L (3.5-5.1); SODIUM LEVEL 138 MEQ/L (136-145); TOTAL PROTEIN 6.1 GM/DL (6.4-8.2); TROPONIN I < 0.02 NG/ML (< 0.10)
[2019-08-10] MEDS ORDERED: ACETAMINOPHEN 500 MG TAB PO PRN (14:30)
[2019-08-10 15:53] VITALS: BP 181/84
[2019-08-10] MEDS: PANTOPRAZOLE 40MG TAB (PROTONIX) PO SCH (16:16)
[2019-08-10] MEDS: LR 1,000 ML IV SCH (16:16)
[2019-08-10] MEDS: cefTAZidime 1 GM in D5W MINI-BAG PLUS 50 ML IV SCH (16:48)
[2019-08-10] MEDS: FILGRASTIM 480 MCG/0.8 ML SYRINGE (J1442) SC SCH (16:48)
[2019-08-10] MEDS: GENTAMICIN 80 MG in IV 1 EA IV SCH (18:09)
[2019-08-10] MEDS: MORPHINE 4 MG/ML 1ML VIAL/SYRINGE (J2270) IV PRN (18:10)
--- NOTE | 2019-08-10 19:15 | ECGEPIP ---
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
--- NOTE | 2019-08-10 19:28 | HPE ---
DATE OF ADMISSION: 08/10/2019 PRIMARY CARE PROVIDER: Dr. Escobar CHIEF COMPLAINT: Abdominal pain. HISTORY: Maldonado King is a 69-year-old being treated for diffuse large B cell lymphoma, just hospitalized on 06/29/2019. He began having abdominal pain the evening after his discharge, pain got progressively worse. He has been constipated. He thinks that the pain is from more than constipation. He has not had any fevers or chills. He is nauseated. Denies any rectal bleeding. 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 Amy Guzman. He had a liver biopsy that made the diagnosis in June 2019. I reviewed his outpatient records. He has a history of hypertensive heart disease, prediabetes, hyperlipidemia, macular degeneration and some depression. At his last outpatient visit he was taking Lexapro 10 mg daily, Lisinopril 40 mg daily and aspirin. SOCIAL HISTORY: He quit smoking over 10 years ago. Denies alcohol use. 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 ALLERGIES: None known. FAMILY HISTORY: Mother had some unspecified cancer. He has three healthy daughters. IMMUNIZATIONS: He has had his Prevnar 05/2018, Pneumo 23 06/2014. MEDICATIONS: - Tylenol as needed - allopurinol 300 mg daily - aspirin 81 mg daily - Lexapro 10 mg daily - Lisinopril 40 mg daily - Zofran 8 mg every 6 hours as needed - oxycodone ER 10 mg every 12 hours - prednisone 80 mg daily REVIEW OF SYSTEMS: As above, otherwise negative. PHYSICAL EXAMINATION: VITAL SIGNS: 98 degrees, 152/82, pulse 68, respirations 18, oxygen saturation 97%. GENERAL APPEARANCE: Chronically ill-appearing, resting in bed. No distress. HEENT: Pupils are equal and reactive to light. Tympanic membranes and oropharynx benign. Neck with no masses. LUNGS: Clear. HEART: Regular rhythm. No murmur. ABDOMEN: Obese. Soft, diffusely tender, mildly distended. No guarding or rebound. EXTREMITIES: No clubbing or cyanosis. Trace peripheral edema of the left leg and 1+ of the right leg. Moves arms and legs with equal strength. No warmth, redness or swelling of the joints. LABORATORIES: White count 0.2 with 4% neutrophils for an absolute neutrophil count of 8, hemoglobin 10, platelets 110. Sodium 138, potassium 3.8, BUN 10, creatinine 0.5, glucose 81. Urinalysis looks clear. Chest x-ray shows no active disease. CT scan of the abdomen and pelvis showed diffuse poorly distributed masses in the liver. Small amount of ascites. Gallbladder normal. Pancreas normal. No hernias. IMPRESSION: 1. Critical neutropenia. Absolute neutrophil count of 8. The patient will be admitted to isolation bed. I have a call in for the on-call oncologist, Dr. Pascal, who is managing consultant this weekend. The patient has already received a dose of Zosyn. We will defer antibiotic choice to oncology. Neupogen will be ordered. Serial complete blood count (CBC) with differential will be ordered. Blood cultures have been obtained. Urine will be obtained for culture. Chest x-ray shows no infiltrate. 2. B cell lymphoma. Receiving chemotherapy. We will get phosphorous, uric acid, daily CMP. 3. Abdominal pain. Analgesia has been ordered. Bowel care has been ordered. 4. Hypertension. Continue his Lisinopril, watch renal function on the zretmcdeacm-nwnwexdget-tmnsif (CON) inhibitor. IV fluids have been ordered. 5. History of depression. Continue Lexapro to avoid SSRI withdrawal syndrome. ADDENDUM: I spoke with Dr. Pascal, who is the locums managing consultant for oncology. The case was discussed. He agreed with Neupogen. I have given him 40 mcg times one. He advises Fortaz 1 gram every 8 hours and gentamicin for gram-negative coverage and I am ordering that as well. I asked him to see the patient today.
[2019-08-10 20:00] VITALS: BP 118/74
[2019-08-10] MEDS: MIRALAX *UNIT DOSE* 17GM PACKET PO SCH (20:30)
[2019-08-10] MEDS: SENOKOT S TAB PO SCH (20:30)
[2019-08-10] MEDS: ENOXAPARIN 40 MG/0.4 ML SYRINGE (J1650) SC SCH (20:30)
[2019-08-11] VITALS: BP 122/73
[2019-08-11] MEDS: cefTAZidime 1 GM in D5W MINI-BAG PLUS 50 ML IV SCH ×3 (00:12→17:08)
[2019-08-11] MEDS: MORPHINE 4 MG/ML 1ML VIAL/SYRINGE (J2270) IV PRN ×4 (00:13→22:35)
[2019-08-11] MEDS: LR 1,000 ML IV SCH ×2 (02:00→08:36)
[2019-08-11 04:00] VITALS: BP 114/70
[2019-08-11] MEDS: GENTAMICIN 80 MG in IV 1 EA IV SCH ×2 (06:27→18:06)
[2019-08-11 07:56] VITALS: BP 155/74
[2019-08-11 07:57] LABS: ALBUMIN 2.2 GM/DL (3.2-5.2); ALT/SGPT 27 U/L (12-78); BILIRUBIN,TOTAL 0.5 MG/DL (0.2-1.0); BLOOD UREA NITROGEN 7 MG/DL (7-18); CALCIUM LEVEL 8.5 MG/DL (8.8-10.2); CARBON DIOXIDE LEVEL 29 MEQ/L (21-32); CHLORIDE LEVEL 104 MEQ/L (98-107); CREATININE FOR GFR 0.63 MG/DL (0.70-1.30); GLOMERULAR FILTRATION RATE > 60.0 (>42); GLUCOSE, FASTING 77 MG/DL (70-100); MAGNESIUM LEVEL 1.8 MG/DL (1.8-2.4); POTASSIUM SERUM 3.7 MEQ/L (3.5-5.1); SODIUM LEVEL 138 MEQ/L (136-145); URIC ACID 3.1 MG/DL (3.5-7.2)
[2019-08-11] MEDS: SENOKOT S TAB PO SCH ×2 (08:36→20:37)
[2019-08-11] MEDS: MIRALAX *UNIT DOSE* 17GM PACKET PO SCH ×2 (08:36→20:36)
[2019-08-11] MEDS: PANTOPRAZOLE 40MG TAB (PROTONIX) PO SCH (08:36)
[2019-08-11] MEDS: ASPIRIN 81 MG ENTERIC TAB PO SCH (08:36)
[2019-08-11] MEDS: ALLOPURINOL 300 MG TAB PO SCH (08:36)
[2019-08-11] MEDS: ESCITALOPRAM OXALATE 10 MG TAB (LEXAPRO) PO SCH (08:36)
[2019-08-11 08:48] LABS: BASO % 2.2 % (0.0-1.0); EOS % 6.7 % (0.0-3.0); LYMPH % 51.1 % (24.0-44.0); MEAN CORPUSCULAR HGB CONC 32.3 g/dl (32.0-36.5); MEAN CORPUSCULAR VOLUME 86.8 fl (80.0-96.0); MONO % 8.9 % (0.0-5.0); NEUTROPHILS % 31.1 % (36.0-66.0); PLATELET COUNT, AUTOMATED 129 10^3/uL (150-450); RED BLOOD COUNT 3.57 10^6/uL (4.30-6.10)
[2019-08-11 08:56] LABS: LYMPH # 0.2 10^3/uL (1.5-5.0); NEUTROPHILS # 0.1 10^3/uL (1.5-8.5); WHITE BLOOD COUNT 0.5 10^3/uL (4.0-10.0)
[2019-08-11] MEDS ORDERED: predniSONE 20 MG TAB PO SCH (09:00)
--- NOTE | 2019-08-11 10:22 | IPN ---
DATE: 08/11/2019 Maldonado is seen in ICU. He was admitted with critical neutropenia and abdominal pain. His abdominal pain is a little better. He has still not had a bowel movement though he "feels like it's close." I consulted Dr. Gwyn paul covering hematology/oncology yesterday. We discussed the case. I do not see any notes and the patient does not think he has been seen yet. He has no fever, chills, cough, dysuria, sore throat. PHYSICAL EXAMINATION: 97.2, 155/74, 97% oxygen saturation. General appearance: He looks better than yesterday. Color is better. Less uncomfortable. HEENT: Unremarkable. Pharynx benign. Lungs clear. Heart regular rhythm. Abdomen soft, diffusely mildly tender, a little better than yesterday. No peripheral edema. LABS: White count 0.5 with 31% neutrophils for an absolute neutrophil count of 15, hemoglobin 10. Electrolytes unremarkable, creatinine 0.6. IMPRESSION: 1. Critical neutropenia, absolute neutrophil count of 15. Continue Fortaz and gentamicin per recommendation of Dr. Pascal. I also gave him a dose of Neupogen yesterday 480 mcg, I will repeat that today. We are waiting for the oncology consultation to be completed. 2. Abdominal pain. Hopefully this is just from constipation. CT was unrevealing. Bowel care has been ordered. 3. B cell lymphoma receiving active chemotherapy. Checking daily phosphorous, uric acid, CMP. 4. History of depression. Continue current regimen. 5. Hypertension. Blood pressure is well controlled. I will reduce the rate of his IV fluids.
[2019-08-11] MEDS: NORCO, ANEXSIA 5/325MG TABLET (HYDROcodone/ACETAMINOPHEN) PO PRN ×2 (10:38→18:52)
[2019-08-11] MEDS: FILGRASTIM 480 MCG/0.8 ML SYRINGE (J1442) SC SCH (10:39)
[2019-08-11] MEDS: LISINOPRIL 40 MG TAB PO SCH (10:39)
[2019-08-11] MEDS ORDERED: FILGRASTIM 480 MCG/0.8 ML SYRINGE (J1442) SC ONE (11:45)
[2019-08-11 12:00] VITALS: BP 128/67
[2019-08-11 16:30] VITALS: BP 131/71
[2019-08-11] MEDS: ONDANSETRON 4 MG ORAL DISINTEGRATING TAB (Q0162 PER 1MG) PO PRN (18:53)
[2019-08-11 20:00] VITALS: BP 126/76
[2019-08-11] MEDS: GASTROGRAFIN SOLUTION 30ML PO SCH ×2 (20:00→20:30)
[2019-08-11] MEDS: ENOXAPARIN 40 MG/0.4 ML SYRINGE (J1650) SC SCH (20:37)
[2019-08-11] MEDS ORDERED: PROHANCE 279.3MG/ML 15ML VIAL (A9576) As Ordered ONE (21:26)
--- NOTE | 2019-08-11 22:42 | REPVR ---
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 Contrast material: PROHANCE; Contrast volume: 15 ml; Contrast route: 22G ANGIO; COMPARISON: No relevant prior studies available. FINDINGS: Vertebrae: Exaggerated thoracic kyphosis with maintained alignment and vertebral body heights. T2 hyperintense, enhancing area abutting the left T6 vertebral body measuring 2 cm, suspicious for a paraspinous metastases/lymph node. Marrow: Slight T1 signal hypointensity within the marrow of the lower thoracic spine from T9-T12 suggesting a marrow replacing process. Spinal cord: Normal signal. No cord compression. Discs/Spinal canal/Neural foramina: Nonspecific T7, T2 signal hyperintensity, adjacent to the endplate with minimal enhancement, question osseous metastases versus Modic type I inflammatory endplate degenerative change. C6-C7 disc bulging with mild stenosis. Mild degenerative disc and joint disease. T11-T12 disc bulge and central disc protrusion causes mild spinal, and foraminal stenosis. Pleural space: Small pleural effusions. Soft tissues: Unremarkable. IMPRESSION: 1. Nonspecific T7, T2 signal hyperintensity, adjacent to the endplate with minimal enhancement, question osseous metastases versus Modic type I inflammatory endplate degenerative change. 2. Slight T1 signal hypointensity within the marrow of the lower thoracic spine from T9-T12 suggesting a marrow replacing process. 3. T2 hyperintense, enhancing area abutting the left T6 vertebral body measuring 2 cm, suspicious for a paraspinous metastases/lymph node. 4. T11-T12 disc bulge and central disc protrusion causes mild spinal, and foraminal stenosis. Electronically signed by: Rick Lucas On 08/11/2019 22:42:25 PM
[2019-08-12] VITALS: BP 116/76
[2019-08-12] MEDS: cefTAZidime 1 GM in D5W MINI-BAG PLUS 50 ML IV SCH ×3 (02:46→17:05)
[2019-08-12] MEDS: MORPHINE 4 MG/ML 1ML VIAL/SYRINGE (J2270) IV PRN ×2 (02:47→22:43)
[2019-08-12 04:00] VITALS: BP 125/71
[2019-08-12 04:55] LABS: HEMATOCRIT 29.6 % (42.0-52.0); HEMOGLOBIN 9.4 g/dl (13.5-17.5); MEAN CORPUSCULAR HEMOGLOBIN 27.6 pg (27.0-33.0); MEAN CORPUSCULAR HGB CONC 31.8 g/dl (32.0-36.5); MEAN CORPUSCULAR VOLUME 87.1 fl (80.0-96.0); PLATELET COUNT, AUTOMATED 125 10^3/uL (150-450)
[2019-08-12 04:57] LABS: WHITE BLOOD COUNT 1.2 10^3/uL (4.0-10.0)
[2019-08-12 05:15] LABS: ALBUMIN 2.2 GM/DL (3.2-5.2); ALT/SGPT 25 U/L (12-78); BILIRUBIN,TOTAL 0.3 MG/DL (0.2-1.0); BLOOD UREA NITROGEN 7 MG/DL (7-18); CALCIUM LEVEL 8.1 MG/DL (8.8-10.2); CARBON DIOXIDE LEVEL 31 MEQ/L (21-32); CHLORIDE LEVEL 107 MEQ/L (98-107); GLOMERULAR FILTRATION RATE > 60.0 (>42); GLUCOSE, FASTING 75 MG/DL (70-100); MAGNESIUM LEVEL 1.7 MG/DL (1.8-2.4); POTASSIUM SERUM 3.5 MEQ/L (3.5-5.1); SODIUM LEVEL 142 MEQ/L (136-145); TOTAL PROTEIN 5.3 GM/DL (6.4-8.2); URIC ACID 3.4 MG/DL (3.5-7.2)
[2019-08-12 05:58] LABS: ATYPICAL LYMPH 7 % (0-5); BASOPHILS 2 % (0-1); EOSINOPHILS 4 % (0-3); LYMPHOCYTES 25 % (16-44); MONOCYTES 8 % (0-5); NEUTROPHILS 50 % (28-66)
[2019-08-12 05:59] LABS: ANISOCYTOSIS 1+; PLATELET ESTIMATE DECREASED (NORMAL); POIKILOCYTOSIS 1+
[2019-08-12] MEDS ORDERED: MAG SULF 1GM/100ML (MAG RUN) 1 GM in IV 1 EA IV ONE (06:30)
[2019-08-12] MEDS ORDERED: POTASSIUM CHLORIDE 10 MEQ SR TABLET PO ONE (06:30)
[2019-08-12] MEDS: GENTAMICIN 120 MG in D5W 50 ML IV SCH ×2 (07:07→17:58)
[2019-08-12] MEDS: NORCO, ANEXSIA 5/325MG TABLET (HYDROcodone/ACETAMINOPHEN) PO PRN ×4 (07:46→22:01)
[2019-08-12 07:50] VITALS: BP 164/76
[2019-08-12] MEDS: MIRALAX *UNIT DOSE* 17GM PACKET PO SCH (09:13)
[2019-08-12] MEDS: SENOKOT S TAB PO SCH ×2 (09:14→20:25)
[2019-08-12] MEDS: ASPIRIN 81 MG ENTERIC TAB PO SCH (09:14)
[2019-08-12] MEDS: ALLOPURINOL 300 MG TAB PO SCH (09:14)
[2019-08-12] MEDS: PANTOPRAZOLE 40MG TAB (PROTONIX) PO SCH (09:14)
[2019-08-12] MEDS: LISINOPRIL 40 MG TAB PO SCH (09:14)
[2019-08-12] MEDS: ESCITALOPRAM OXALATE 10 MG TAB (LEXAPRO) PO SCH (09:14)
[2019-08-12] MEDS: FILGRASTIM 480 MCG/0.8 ML SYRINGE (J1442) SC SCH (10:04)
--- NOTE | 2019-08-12 14:06 | CR ---
MEDICAL ONCOLOGY INPATIENT CONSULTATION DATE OF CONSULTATION: 08/11/2019 REQUESTING PHYSICIAN: Wojciech Abreu MD DIAGNOSIS: Stage IV germinal center type diffuse large B-cell lymphoma with high burden of liver and spleen involvement status post start of R-CHOP chemotherapy 07/31/2019. Now admitted with grade 4 neutropenia, abdominal pain, constipation. INTERVAL HISTORY: Mr. King began chemotherapy with R-CHOP on 07/31/2019 receiving chemotherapy day 1, rituximab day 2, followed by 2 days of filgrastim 40 mcg. He was intended to have daily filgrastim to complete 10 days, this did not happen to my knowledge. Beginning the day he was discharged, he says he developed new onset left upper quadrant pain. This progressed and finally he "could not take it any longer" and came to the emergency room yesterday. On admission, WBC was 0.2, absolute neutrophil count 0, hemoglobin 10, hematocrit 32, platelets 110. He was started on filgrastim 40 mcg subcu daily. Abdomen and pelvis CT without oral contrast but with IV contrast revealed multiple enhancing masses throughout the liver, too numerous to count, a small amount of ascites, and no significant change in the appearance of bowel loops. Notably, at the CT reading did not comment on spleen, which on a 07/08/2019 was also the site of extensive hypermetabolic foci. At the bedside, Mr. King points to left upper quadrant and draws as hand across the midline saying this is the site of his pain. I am able to easily palpated his abdomen, epigastrium, upper and lower quadrants without his wincing or experiencing pain, but he says it comes on and off. He has had a few bowel movements in the last few days but says he has also eaten very little. CURRENT MEDICATIONS: - ondansetron p.r.n. - hydrocodone / acetaminophen p.r.n. - allopurinol 300 mg daily - aspirin 81 mg daily - citalopram 10 mg daily - lisinopril 40 mg daily - prednisone 80 mg daily - polyethylene glycol p.r.n. - Senna p.r.n. - enoxaparin 40 mg subcu daily - gentamicin q.12 h - ceftazidime q. 8 h - IV fluids - morphine sulfate 4 mg q. 4 hours p.r.n. - filgrastim 480 mcg subcu daily - pantoprazole 40 mg daily PAST MEDICAL HISTORY: Hypertension, diffuse large B-cell lymphoma, as described above. PAST SURGICAL HISTORY: Negative. SOCIAL HISTORY: Never smoker. Occasional alcohol. , lives with his . 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 FAMILY HISTORY: Mother had lung cancer. ALLERGIES: No known drug allergies. PHYSICAL EXAMINATION: Limited physical examination. Vital signs: Temperature 97, blood pressure 131/71, heart rate 64, respiratory 18, O2 sat 97%. HEENT: No scleral icterus. Abdomen: Nondistended, soft, no palpable mass. No rebound tenderness. Able to palpate throughout the upper and lower abdomen. No suprapubic tenderness. Extremities: 1+ pitting edema bilaterally. LABORATORY DATA: WBC 0.5, ANC 100, hemoglobin 10, hematocrit 31, platelets 129. Lactic acid of 0.7 on 08/10/2019, uric acid 3.1, calcium 8.5, potassium 3.7, bicarbonate 29, sodium 138, magnesium 1.8, total bilirubin 0.5, alkaline phosphatase 314 (down from 465 and down from peak of 513), LDH not measured on this admission, most recent 08/05/2019 was 637 down from peak of 9 on 08/02/2019. Abdomen and pelvis CT as noted. IMPRESSION: Stage IV germinal center diffuse large B-cell lymphoma, cytogenetic status pending, diagnosed on liver biopsy 07/17/2019 with diffuse hepatic and splenic involvement. No other known sites. The patient began on chemotherapy inpatient 07/31/2019 with fluid hydration and tumor lysis prophylaxis and continues on allopurinol daily. Grade 4 neutropenia secondary to chemotherapy and insufficient G-CSF treatment. Abdominal pain of uncertain etiology. The differential diagnosis including splenic infarct secondary to burden of spleen, burden of disease and response to chemotherapy, occult low thoracic spine involvement with tumor. The patient describes radiating pain centrally around left to the front from the back, left greater than right at approximate T12 level versus, though less likely in the current clinical picture, neutropenic colitis (typhlitis). PLAN/RECOMMENDATIONS: 1. Discontinue high-dose prednisone. The patient needs to be on prednisone only days 1 through 5 each cycle. It is safe for him to discontinue this currently. 2. Continue filgrastim 480 mcg subcu daily until absolute neutrophil count is 1500. 3. I am recommending abdomen and pelvis CT be repeated at this time with p.o. and IV contrast with close attention to explain looking for splenic infarct. Also review the current films tomorrow morning with radiology. 4. Low threshold for expanding antibiotic spectrum to cover for bowel ophelia / anaerobes should the patient develop fever or hypotension. 5. Consider thoracic MRI to rule out occult thoracic involvement with tumor. Overall, splenic infarct is a very likely possible cause of the patient's pain but more dire, underlying complications need to be ruled out. We will follow.
--- NOTE | 2019-08-12 15:41 | IPNPDOC ---
Text Note Date of Service The patient was seen on 08/12/19. NOTE Subjective: -Feels ok this morning. Abdominal pain is well controlled "while here." -Still has not had a BM -Not complaining of significant back pain this morning -Discussed the results of the MRI that was done yesterday with evidence of likely disease infiltration, and he articulated a desire to become DNR/DNI at this time and will discuss the way forward and if "this is the beginning of the end" with Dr. Guzman. We filled out the MOLST form. 10 point review of system was negative except for above PHYSICAL EXAMINATION: VITAL SIGNS: Please see below. Remains hemodynamically stable and afebrile GENERAL: No distress, sitting up in chair, pleasant, cooperative HEENT: Normocephalic, atraumatic, moist mucous membranes NECK: Supple CARDIOVASCULAR EXAMINATION: S1, S2, no murmurs RESPIRATORY EXAMINATION: Clear to auscultation, no wheezing ABDOMINAL EXAMINATION: Soft, mild right upper quadrant tenderness, nondistended, hyperactive bowel sounds EXTREMITIES: Trace bilateral lower extremity pitting edema SKIN: No rash NEUROLOGICAL EXAMINATION: Alert and oriented 3, no focal deficits PSYCHIATRIC EXAMINATION: Calm and cooperative LABORATORY DATA: See below. Reviewed. Mag 1.7 repleted. K 3.5 repleted. Otherwise with improving neutropenia, WBC now 1.2, ANC still pending this AM and stable anemia and Cr. MICROBIOLOGY: Please see below. IMAGING: Reviewed. In the interim, had an MRI of his T spine: 1. Nonspecific T7, T2 signal hyperintensity, adjacent to the endplate with minimal enhancement, question osseous metastases versus Modic type I inflammatory endplate degenerative change. 2. Slight T1 signal hypointensity within the marrow of the lower thoracic spine from T9-T12 suggesting a marrow replacing process. 3. T2 hyperintense, enhancing area abutting the left T6 vertebral body measuring 2 cm, suspicious for a paraspinous metastases/lymph node. 4. T11-T12 disc bulge and central disc protrusion causes mild spinal, and foraminal stenosis. ASSESSMENT: 69-year-old man with recently diagnosed DLBCL who recently underwent cycle 1 of R-CHOP who presented with abdominal pain with associated constipation and found to have profound neutropenia and placed on empiric ceftaz/gent with otherwise nevarez-negative infectious workup at this time, with course c/b persistent constipation with ongoing escalation of his bowel regimen. PLAN: 1. Critical neutropenia: improving WBC with neupogen, ANC pending from this morning. - Continue empiric ceftaz and gent per recommendation of oncology (Dr. Pascal). - s/p 2 doses of Neupogen 480 mcg, thus far, will continue until ANC is >1.5 - Was seen by Dr. Guzman, MRI c/f possible osseous mets with pain, will consult radiation oncology to review imaging and possible intervention 2. Abdominal pain: Possibly due to constipation: - CT was unrevealing. - Continue senna/docusate BID, add milk of mag BID and dc miralax for now - Morphine [id number] IV for severe pain, [id number] norco for moderate pain, [id number] tylenol for mild to moderate pain for back pain as well with concern for metastatic disease - Zofran [id number] PO for nausea 3. Diffuse large B-cell lymphoma: s/ p cycle 1 of R-CHOP - continue allopurinol and discontinue prednisone [address] Guzman - continue daily CMP, calcium, phosphorus, LDH and uric acid - strict I/Os 4. GERD: -continue protonix 5. History of depression: - continue home lexapro 6. Hypertension: Blood pressure is well controlled. -continue home lisinopril 7. GOC: decided to change his goals of care to DNR/DNI at this time. MOLST and code status order updated DVT prophylaxis: Lovenox subcutaneous Diet: Regular Dispo: Transfer to med/surg VS,Fishbone, I+O VS, Fishbone, I+O Laboratory Tests 08/12/19 04:19 Vital Signs Date Time Temp Pulse Resp B/P (MAP) Pulse Ox O2 Delivery O2 Flow Rate FiO2 08/12/19 04:00 98.0 75 18 125/71 (89) 97 Room Air I&O- Last 24 Hours up to 6 AM 08/12/19 05:59 Intake Total 1530 ml Output Total 1725 ml Balance -195 ml RONNIE HENNESSY MD Aug 12, 2019 06:46
[2019-08-12 16:32] VITALS: BP 151/72
[2019-08-12] MEDS: ONDANSETRON 4 MG ORAL DISINTEGRATING TAB (Q0162 PER 1MG) PO PRN (17:33)
[2019-08-12] MEDS ORDERED: ISOVUE-370 76% 100ML VIAL (Q9967) As Ordered ONE (18:20)
[2019-08-12] MEDS: GASTROGRAFIN SOLUTION 30ML PO SCH (18:48)
--- NOTE | 2019-08-12 19:39 | REPVR ---
PROCEDURE INFORMATION: Exam: CT Abdomen And Pelvis With Contrast Exam date and time: 08/12/2019 7:16 PM Age: 69 years old Clinical history: Condition or disease; Cancer; Liver; Primary site; Additional info: Liver spleen nhl luq pain rule out spl infarct R/O bowel me TECHNIQUE: Imaging protocol: Computed tomography of the abdomen and pelvis with intravenous contrast. Radiation optimization: All CT scans at this facility use at least one of these dose optimization techniques: automated exposure control; mA and/or kV adjustment per patient size (includes targeted exams where dose is matched to clinical indication); or iterative reconstruction. Contrast material: ISOVUE 370; Contrast volume: 100 ml; Contrast route: IV; Other contrast: Route: Oral; COMPARISON: CT ABD/PEL W/IV CONTRAST ONLY 08/10/2019 11:18 AM FINDINGS: Pleural space: Tiny bilateral pleural effusions and minimal bilateral basilar atelectasis, unchanged. Liver: Diffuse low density masses scattered throughout the liver, consistent with metastatic disease, unchanged. No intrahepatic duct dilatation. Gallbladder and bile ducts: Unremarkable. No calcified stones. No ductal dilation. Pancreas: Unremarkable. No ductal dilation. Spleen: 4 cm low-density mass within the inferior spleen, unchanged, consistent with splenic metastasis. No splenic infarct or hematoma identified. Adrenals: Normal. No mass. Kidneys and ureters: Left renal cyst, unchanged. Normal right kidney. No renal stone or hydronephrosis. Stomach and bowel: Unremarkable. No obstruction. No mucosal thickening. Appendix: No evidence of appendicitis. Intraperitoneal space: Small volume of abdominal and pelvic ascites, unchanged. Vasculature: Mild to moderate atherosclerosis of the abdominal aorta and branch vessels. No aneurysm. Lymph nodes: Unremarkable. No enlarged lymph nodes. Bladder: Unremarkable as visualized. Reproductive: Unremarkable as visualized. Bones/joints: No acute fracture. Soft tissues: Small right inguinal hernias containing fat, larger on the right. There is a small amount of ascites within the right inguinal hernia. IMPRESSION: 1. Diffuse hepatic metastatic disease, unchanged. 2. Splenic metastasis, unchanged. No splenic infarct or hematoma is identified. 3. Small volume of abdominal and pelvic ascites, unchanged. Electronically signed by: Darrick Gamino On 08/12/2019 19:38:45 PM
[2019-08-12] MEDS: MOM 30ML SUSPENSION UDC PO SCH (20:25)
[2019-08-12] MEDS: ENOXAPARIN 40 MG/0.4 ML SYRINGE (J1650) SC SCH (20:26)
[2019-08-12 22:25] VITALS: BP 142/84
[2019-08-13] MEDS: cefTAZidime 1 GM in D5W MINI-BAG PLUS 50 ML IV SCH ×2 (02:31→09:58)
[2019-08-13] MEDS: NORCO, ANEXSIA 5/325MG TABLET (HYDROcodone/ACETAMINOPHEN) PO PRN ×4 (03:11→19:37)
[2019-08-13] MEDS: MORPHINE 4 MG/ML 1ML VIAL/SYRINGE (J2270) IV PRN (05:46)
[2019-08-13] MEDS: GENTAMICIN 120 MG in D5W 50 ML IV SCH (05:46)
[2019-08-13 06:00] VITALS: BP 138/82
[2019-08-13 06:24] LABS: HEMATOCRIT 29.7 % (42.0-52.0); HEMOGLOBIN 9.6 g/dl (13.5-17.5); MEAN CORPUSCULAR HEMOGLOBIN 27.9 pg (27.0-33.0); MEAN CORPUSCULAR HGB CONC 32.3 g/dl (32.0-36.5); MEAN CORPUSCULAR VOLUME 86.3 fl (80.0-96.0); PLATELET COUNT, AUTOMATED 178 10^3/uL (150-450); RED BLOOD COUNT 3.44 10^6/uL (4.30-6.10); WHITE BLOOD COUNT 5.4 10^3/uL (4.0-10.0)
[2019-08-13 06:53] LABS: ALBUMIN 2.4 GM/DL (3.2-5.2); ALT/SGPT 30 U/L (12-78); BILIRUBIN,TOTAL 0.4 MG/DL (0.2-1.0); BLOOD UREA NITROGEN 6 MG/DL (7-18); CALCIUM LEVEL 8.5 MG/DL (8.8-10.2); CARBON DIOXIDE LEVEL 33 MEQ/L (21-32); CHLORIDE LEVEL 105 MEQ/L (98-107); CREATININE FOR GFR 0.69 MG/DL (0.70-1.30); GLOMERULAR FILTRATION RATE > 60.0 (>42); GLUCOSE, FASTING 75 MG/DL (70-100); MAGNESIUM LEVEL 2.2 MG/DL (1.8-2.4); POTASSIUM SERUM 3.8 MEQ/L (3.5-5.1); SODIUM LEVEL 141 MEQ/L (136-145); TOTAL PROTEIN 5.8 GM/DL (6.4-8.2); URIC ACID 3.8 MG/DL (3.5-7.2)
[2019-08-13 07:15] LABS: ANISOCYTOSIS 1+; ATYPICAL LYMPH 5 % (0-5); BASOPHILS 1 % (0-1); LYMPHOCYTES 9 % (16-44); METAMYELOCYTES 3 % (0-0); MONOCYTES 10 % (0-5); MYELOCYTES 2 % (0-0); NEUTROPHILS 69 % (28-66); PLATELET ESTIMATE NORMAL (NORMAL)
[2019-08-13 07:19] LABS: TOXIC GRANULATION 1+
[2019-08-13 08:40] LABS: BASO % 1.1 % (0.0-1.0); EOS % 0.4 % (0.0-3.0); LYMPH % 8.3 % (24.0-44.0); MONO % 9.6 % (0.0-5.0); NEUTROPHILS % 69.5 % (36.0-66.0)
[2019-08-13 08:41] LABS: BASO # 0.1 10^3/uL (0.0-0.2); LYMPH # 0.5 10^3/uL (1.5-5.0); MONO # 0.5 10^3/uL (0.0-0.8); NEUTROPHILS # 3.8 10^3/uL (1.5-8.5)
--- NOTE | 2019-08-13 09:14 | IPN ---
MEDICAL ONCOLOGY INPATIENT FOLLOWUP DATE OF SERVICE: 08/12/2019 DIAGNOSIS: Diffuse large B-cell lymphoma, molecular cytogenetics now day 12 cycle 1 R-CHOP for stage IV B disease involving extensive hepatic and splenic lymphoma foci. INTERVAL HISTORY: Thoracic spine MRI reveals multifocal signal changes possibly consistent with lymphoma involvement including hypointensity in the marrow of T9-T12 spine, nonspecific T7 and T2 signal enhancement, T11-12 DJD type changes, and T6 enhancing area suspicious for paraspinal lymph node. Of note, however no cord compressing, no neural foraminal compressing lesions, no overt obvious spinal lesions to explain the patient's upper abdominal pain. Today, Mr. King says his pain is being controlled but requires frequent dosing of pain medication. He points to his right upper quadrant today in contrast to yesterday when he pointed to his left upper quadrant and clarifies the pain is always in the right upper quadrant but radiates to the left and sometimes around to the back. He has had no nausea or vomiting. He has no shortness of breath or chest pain. He has been afebrile overnight. Abdomen and pelvis CT is scheduled for later in the evening. We have asked radiation oncology to evaluate him for potential palliative radiation but with the current findings on MR there may be no appropriate target lesion. I then spent time in speaking with Maldonado about his wishes in terms of treatment. He is DO NOT RESUSCITATE/DO NOT INTUBATE currently. However, he is adamant and clear he wants to proceed with treatment if it can put him in partial or complete remission and he is interested in continuing treatment. He has approximately 10 more days to complete before the end of this cycle and the start of the second. Chromosomal testing has been delayed due to issues at the lab. I re-requested FISH and cytogenetics, and these will be done. Should he have a high risk lymphoma such as high Ki-67 or Burkitt's type lymphoma, he may need rapid evaluation at a quaternary center for inpatient lymphoma treatments. For the time being however, there is no need to consider a transfer and we await molecular studies. Pain management will be the top priority, and we will follow him closely following discharge. Maldonado was in agreement with all of the above. IMPRESSION: Stage IV diffuse large B-cell lymphoma, genetic alteration testing results delayed. Day 12 cycle 1 R-CHOP. ECOG performance status 2-3 with improving pain control. PLAN: 1. If the patient's pain is adequately controlled and he is ambulatory, ready, willing and able discharge home is appropriate with early followup next week in the office for reassessment. 2. Radiation oncology consult recommended to evaluate whether there are any targetable sites for palliative radiation. 3. Follow through with abdomen and pelvis CT with p.o. and IV contrast tonight looking for potential organ infarct or other potential abdominopelvic causes of the patient's right upper quadrant pain. Unfortunately, I suspect tumor turnover is the most likely cause of his right upper quadrant pain given the burden of disease involving the liver. 08/13/2019 ADDENDUM 8:31 A.M.: Abdomen and pelvis CT with p.o. and IV contrast is negative for evidence of splenic infarct or hematoma. There is a small volume of abdominopelvic ascites unchanged and diffuse hepatic metastatic disease unchanged. In reviewing the 08/10/2019 film, and comparing this to 06/12/2019 abdomen CTA, there are minor differences but there may be partial response involving the liver and spleen with more discrete masses involved in the liver now as opposed to a large conglomerate area of mass. Dr. Lincoln has seen the patient, reviewed the MRI. The patient's pain syndrome does not correlate with MRI findings as the MRI findings are not definitive for metastasis, so the paraspinal lymph node at T6 is highly suggestive and likely there is marrow involvement of disease based on enhancement signal. For the time being Maldonado will continue on oral pain management and will followup with him early on discharge. ANUJAD
[2019-08-13] MEDS: MOM 30ML SUSPENSION UDC PO SCH ×2 (09:58→20:36)
[2019-08-13] MEDS: LISINOPRIL 40 MG TAB PO SCH (09:59)
[2019-08-13] MEDS: SENOKOT S TAB PO SCH ×2 (09:59→20:34)
[2019-08-13] MEDS: PANTOPRAZOLE 40MG TAB (PROTONIX) PO SCH (09:59)
[2019-08-13] MEDS: ASPIRIN 81 MG ENTERIC TAB PO SCH (09:59)
[2019-08-13] MEDS: ALLOPURINOL 300 MG TAB PO SCH (09:59)
[2019-08-13] MEDS: ESCITALOPRAM OXALATE 10 MG TAB (LEXAPRO) PO SCH (09:59)
[2019-08-13 14:00] VITALS: BP 130/69
--- NOTE | 2019-08-13 17:21 | IPNPDOC ---
Text Note Date of Service The patient was seen on 08/13/19. NOTE Subjective: -Feels well this morning, eager to get back to living his life but is concerned that he feels well while here on IV meds that he will not be able to reproduce at home. We discussed a plan to switch all pain medications to oral medications today and determine how much oral pain meds will be sufficient at this time as he preps to go home tomorrow. -Finally had 1 bowel movement last night, feels much better -Not complaining of significant back pain this morning -No subjective fever, chills, worsening abdominal pain, chest pain, shortness of breath or dysuria. Interim events: -Saw. Dr. Guzman and radiation oncology. No intervention per radiation oncology, with tentative plan to go on to cycle 2 with R-CHOP with Dr. Guzman 10 point review of system was otherwise negative except for above PHYSICAL EXAMINATION: VITAL SIGNS: Please see below. Remains hemodynamically stable and afebrile GENERAL: No distress, pleasant, conversant HEENT: Normocephalic, atraumatic, moist mucous membranes NECK: Supple CARDIOVASCULAR EXAMINATION: S1, S2, no murmurs RESPIRATORY EXAMINATION: Clear to auscultation, no wheezing ABDOMINAL EXAMINATION: Hyperactive bowel sounds, soft, mild right upper quadrant tenderness, nondistended EXTREMITIES: Trace bilateral lower extremity pitting edema SKIN: No rash NEUROLOGICAL EXAMINATION: Alert and oriented 3, no focal deficits LABORATORY DATA: See below. Reviewed. Resolved neutropenia. Stable anemia and Cr. MICROBIOLOGY: Please see below. BCx negative to date. UCx was negative IMAGING: Reviewed. 1. Nonspecific T7, T2 signal hyperintensity, adjacent to the endplate with minimal enhancement, question osseous metastases versus Modic type I inflammatory endplate degenerative change. 2. Slight T1 signal hypointensity within the marrow of the lower thoracic spine from T9-T12 suggesting a marrow replacing process. 3. T2 hyperintense, enhancing area abutting the left T6 vertebral body measuring 2 cm, suspicious for a paraspinous metastases/lymph node. 4. T11-T12 disc bulge and central disc protrusion causes mild spinal, and foraminal stenosis. ASSESSMENT: 69-year-old man with recently diagnosed germinal center DLBCL who recently underwent cycle 1 of R-CHOP who presented with abdominal pain with associated constipation and found to have profound neutropenia and placed on empiric ceftaz/gent with otherwise nevarez-negative infectious workup at this time, s/p neupogen with resolution of neutropenia and now discontinuing, with course c/b persistent constipation now resolved after bowel regimen escalation and d iffuse pain with some evidence of osseous disease well controlled on current pain regimen. PLAN: 1. Critical neutropenia: resolved after 4 neupogen doses: - Discontinue empiric ceftaz and gent per at this time after resolution of neutropenia, afebrile, hemodynamically stable and nonfocal exam - s/p 4 doses of Neupogen 480 mcg -Saw. Dr. Guzman and radiation oncology. No intervention per radiation oncology, with tentative plan to go on to cycle 2 with R-CHOP with Dr. Guzman 2. Pain: Abdominal pain: Possibly due to constipation: CT A/P was unrevealing. Back pain: MRI showed evidence for osseous disease and radiation oncology was consulted but on review of imaging did not find intervenable lesions. - Continue senna/docusate BID and milk of mag BID - Switching all meds to PO. Had minimally used the IV morphine [id number] IV so will discontinue that now and continue the [id number] norco and [id number] tylenol for mild to moderate pain. MRI showed evidence for osseous disease and radiation oncology was consulted but on review of imaging did not find intervenable lesions. - Zofran [id number] PO for nausea 3. Diffuse large B-cell lymphoma: s/ p cycle 1 of R-CHOP - continue allopurinol and discontinue prednisone [address] Guzman - continue daily CMP, calcium, phosphorus, LDH and uric acid - strict I/Os 4. GERD: -continue protonix 5. History of depression: - continue home lexapro 6. Hypertension: Blood pressure is well controlled. -continue home lisinopril 7. GOC: DNR/DNI at this time. MOLST and code status order updated DVT prophylaxis: Lovenox subcutaneous Diet: Regular Dispo: Planning for home discharge early tomorrow AM VS,Lakshmi, I+O VS, Fishbone, I+O Laboratory Tests 08/13/19 05:56 Vital Signs Date Time Temp Pulse Resp B/P (MAP) Pulse Ox O2 Delivery O2 Flow Rate FiO2 08/13/19 06:00 98.5 81 17 138/82 (100) 93 Room Air I&O- Last 24 Hours up to 6 AM 08/13/19 06:00 Intake Total 1930 ml Output Total 1950 ml Balance -20 ml RONNIE HENNESSY MD Aug 13, 2019 08:41
[2019-08-13] MEDS: ONDANSETRON 4 MG ORAL DISINTEGRATING TAB (Q0162 PER 1MG) PO PRN (18:26)
[2019-08-13 20:28] VITALS: BP 139/74
[2019-08-13] MEDS: ENOXAPARIN 40 MG/0.4 ML SYRINGE (J1650) SC SCH (20:34)
[2019-08-14] MEDS: NORCO, ANEXSIA 5/325MG TABLET (HYDROcodone/ACETAMINOPHEN) PO PRN ×2 (00:54→06:41)
[2019-08-14 05:27] VITALS: BP 140/74
[2019-08-14 05:53] LABS: HEMATOCRIT 30.7 % (42.0-52.0); HEMOGLOBIN 9.8 g/dl (13.5-17.5); MEAN CORPUSCULAR HEMOGLOBIN 27.8 pg (27.0-33.0); MEAN CORPUSCULAR HGB CONC 31.9 g/dl (32.0-36.5); PLATELET COUNT, AUTOMATED 218 10^3/uL (150-450); RED BLOOD COUNT 3.53 10^6/uL (4.30-6.10); WHITE BLOOD COUNT 10.2 10^3/uL (4.0-10.0)
[2019-08-14 06:18] LABS: ATYPICAL LYMPH 1 % (0-5); BASOPHILS 4 % (0-1); LYMPHOCYTES 6 % (16-44); METAMYELOCYTES 3 % (0-0); MONOCYTES 11 % (0-5); MYELOCYTES 2 % (0-0); NEUTROPHILS 66 % (28-66); PROMYELOCYTES 1 % (0-0)
[2019-08-14 06:19] LABS: ALBUMIN 2.2 GM/DL (3.2-5.2); ALT/SGPT 21 U/L (12-78); ANISOCYTOSIS 1+; BILIRUBIN,TOTAL 0.3 MG/DL (0.2-1.0); BLOOD UREA NITROGEN 6 MG/DL (7-18); CALCIUM LEVEL 8.2 MG/DL (8.8-10.2); CARBON DIOXIDE LEVEL 32 MEQ/L (21-32); CHLORIDE LEVEL 106 MEQ/L (98-107); CREATININE FOR GFR 0.81 MG/DL (0.70-1.30); GLOMERULAR FILTRATION RATE > 60.0 (>42); GLUCOSE, FASTING 78 MG/DL (70-100); MAGNESIUM LEVEL 2.2 MG/DL (1.8-2.4); PLATELET ESTIMATE NORMAL (NORMAL); POTASSIUM SERUM 3.8 MEQ/L (3.5-5.1); SODIUM LEVEL 141 MEQ/L (136-145); TOTAL PROTEIN 5.8 GM/DL (6.4-8.2); URIC ACID 3.9 MG/DL (3.5-7.2)
[2019-08-14] MEDS ORDERED: IBUP200C28 PO (08:21)
[2019-08-14] MEDS ORDERED: ACET1TAB55 PO (08:21)
[2019-08-14] MEDS ORDERED: HYDR-4571 PO ×2 (08:21→09:49)
[2019-08-14] MEDS ORDERED: MOM30SS2 PO ×2 (08:21→09:49)
[2019-08-14] MEDS ORDERED: PANT40TA3 PO ×2 (08:21→09:49)
[2019-08-14] MEDS ORDERED: SENN-52 PO ×2 (08:21→09:49)
[2019-08-14] MEDS: LISINOPRIL 40 MG TAB PO SCH (08:27)
[2019-08-14] MEDS: PANTOPRAZOLE 40MG TAB (PROTONIX) PO SCH (08:27)
[2019-08-14] MEDS: ALLOPURINOL 300 MG TAB PO SCH (08:27)
[2019-08-14] MEDS: ESCITALOPRAM OXALATE 10 MG TAB (LEXAPRO) PO SCH (08:27)
[2019-08-14] MEDS: ASPIRIN 81 MG ENTERIC TAB PO SCH (08:27)
[2019-08-14] MEDS: ONDANSETRON 4 MG ORAL DISINTEGRATING TAB (Q0162 PER 1MG) PO PRN (08:27)
[2019-08-14] MEDS: MOM 30ML SUSPENSION UDC PO SCH (08:28)
[2019-08-14] MEDS: SENOKOT S TAB PO SCH (08:28)
[2019-08-14] MEDS ORDERED: OXYC-403 PO (09:40)
--- NOTE | 2019-08-14 14:53 | DS.PDOC ---
Discharge Summary General Date of Admission Aug 10, 2019 at 14:21 Date of Discharge 08/14/2019 Attending Physician: RONNIE HENNESSY MD Specialist/Consultants Involve: Amy Guzman MD Specialist/Consultants Involve Dr. Lincoln (rad onc) Discharge Summary PROCEDURES PERFORMED DURING STAY: None ADMITTING DIAGNOSES: 1. Abdominal pain DISCHARGE DIAGNOSES: 1. Diffuse large B-cell lymphoma 2. Constipation 3. Malignancy related pain, with evidence of osseous involvement COMPLICATIONS/CHIEF COMPLAINT: NHL. HISTORY OF PRESENT ILLNESS: 69-year-old man with recently diagnosed germinal center DLBCL who recently underwent cycle 1 of R-CHOP who presented with abdominal pain with associated constipation. HOSPITAL COURSE: In the ED, he was hemodynamically stable and afebrile and was found to have profound neutropenia and placed on empiric ceftaz/gent with otherwise nevarez-negative infectious workup and unrevealing CT A/P that showed known liver and splenic metastatic disease but no acute new findings. He received 4 doses of neupogen with recovery of his counts and at discharge ANC was 3.8 and Hgb was 9.8. His course was c/b back and abdominal pain for which Dr. Guzman, his oncologist recommended a C-spine MRI and a repeat abdominal CT A/P to r/o a splenic infarct vs. bowel ischemia. Thoracic spine MRI revealed multifocal signal changes possibly consistent with lymphoma involvement including hypointensity in the marrow of T9-T12 spine, nonspecific T7 and T2 signal enhancement, T11-12 DJD type changes, and T6 enhancing suspicious for paraspinal lymph node without evidence of cord compression, neural foraminal compressing lesions, no overt obvious spinal lesions to explain the patient's upper abdominal pain. Dr. Guzman recommended a radiation oncology consult and on evaluation and looking at the imaging, Dr. Lincoln did not identify an intervenable culprit lesions and so decision was made to work on adequate PO p ain control with plan for continued treatment in the outpatient setting. The repeat CT A/P did not show any evidence of a splenic infarct or acute bowel pathology. His constipation resolved with escalation of a bowel regimen and will now be discharged on senna/colace twice daily and PRN milk of magnesia or constipation, and 10 BID oxycodone ER as well as N1 tab of 5/325 hydrocodone/acetaminophen every 4 hours as needed for pain. With regard to his wishes in terms of treatment, he expressly stated that he wanted to be DNR/DNI and after discussion with Dr. Guzman, decided that he would like to proceed with further treatment if it can put him in partial or complete remission. He is now being discharged home where he will resume his baseline activities without restrictions and unfortunately due to being discharged on , we were not able to set up his oncology, PCP and palliative care referral appointments. He will call on Sunday to arrange PCP and oncology follow up, with the plan that Dr. Guzman will refer him to palliative care if indicated. DISCHARGE MEDICATIONS: Please see below. ALLERGIES: Please see below. PHYSICAL EXAMINATION ON DISCHARGE: VITAL SIGNS: Please see below. GENERAL: No distress, pleasant, conversant HEENT: Normocephalic, atraumatic, moist mucous membranes NECK: Supple CARDIOVASCULAR EXAMINATION: S1, S2, no murmurs RESPIRATORY EXAMINATION: Clear to auscultation, no wheezing ABDOMINAL EXAMINATION: Normoactive bowel sounds, soft, mild left upper quadrant pain EXTREMITIES: WWP, No lower extremity pitting edema SKIN: No rash NEUROLOGICAL EXAMINATION: Alert and oriented 3, no focal deficits LABORATORY DATA: See below. Reviewed. Resolved neutropenia. Stable anemia and Cr. MICROBIOLOGY: Please see below. BCx negative to date. UCx was negative IMAGIN/24: CXR: There is no acute cardiopulmonary disease. 08/10: CT A/P: There is respiratory motion artifact obscuring the detail of the lung base images. Mild dependent subsegmental atelectatic change is present with possible tiny pleural effusions. These findings represent a change from the prior chest CT of 06/12/2019. There are multiple mixed enhancing low density masses throughout the liver too numerous to count or individually assessed. They vary in size from less than 1 cm to coalescing greater than 11 cm. Although technically different than the CTA abdomen 06/12/2019, these abnormalities were present on the prior exam. There is a small amount of ascites. The gallbladder is within normal limits. There is a small amount of fluid in the lesser sac. The pancreas is unchanged. The adrenal glands and kidneys are unchanged. There is a left renal cyst, status quo. There is no significant change in the appearance of the abdominal aorta or periaortic regions. There was no significant change in the appearance of bowel loops. CT PELVIS: There is free pelvic fluid. The bowel loops are within normal limits. There is no evidence of a pelvic mass or adenopathy. There is a small amount of fluid trapped in the right inguinal canal. This was not imaged on the prior exam. Bone window technique throughout the exam again shows spinal, hip, sacroiliac joint degenerative changes. 08/11: MRI T-spine Vertebrae: Exaggerated thoracic kyphosis with maintained alignment and vertebral body heights. T2 hyperintense, enhancing area abutting the left T6 vertebral onel dy measuring 2 cm, suspicious for a paraspinous metastases/lymph node. Marrow: Slight T1 signal hypointensity within the marrow of the lower thoracic spine from T9-T12 suggesting a marrow replacing process. Spinal cord: Normal signal. No cord compression. Discs/Spinal canal/Neural foramina: Nonspecific T7, T2 signal hyperintensity, adjacent to the endplate with minimal enhancement, question osseous metastases versus Modic type I inflammatory endplate degenerative change. C6-C7 disc bulging with mild stenosis. Mild degenerative disc and joint disease. T11-T12 disc bulge and central disc protrusion causes mild spinal, and foraminal stenosis. Pleural space: Small pleural effusions. Soft tissues: Unremarkable. 08/12: CT A/P 1. Diffuse hepatic metastatic disease, unchanged. 2. Splenic metastasis, unchanged. No splenic infarct or hematoma is identified. 3. Small volume of abdominal and pelvic ascites, unchanged. PROGNOSIS: Guarded, will depend on response to treatment ACTIVITY: As tolerated DIET: Regular DISCHARGE PLAN: Home with onc and PCP follow up DISPOSITION: Home DISCHARGE INSTRUCTIONS: 1. Please take the oxycodone 10mg twice daily, and take a tablet of norco every 4 hours as needed for pain. Please call your PCP and oncology to schedule follow up appointments within the next 2 weeks. ITEMS TO FOLLOWUP ON OUTPATIENT: 1. Malignancy related pain control 2. DLBCL DISCHARGE CONDITION: Good TIME SPENT ON DISCHARGE: 43 minutes. Vital Signs/I&Os Vital Signs Date Time Temp Pulse Resp B/P (MAP) Pulse Ox O2 Delivery O2 Flow Rate FiO2 08/14/19 06:41 18 Room Air 08/14/19 05:27 98.1 62 140/74 (96) 94 I&O- Last 24 Hours up to 6 AM 08/14/19 06:00 Intake Total 1790 ml Output Total 2325 ml Balance -535 ml Laboratory Data Labs 24H Laboratory Tests 2 08/13/19 16:48: Gentamicin Level Trough 1.6 08/14/19 05:37: Immature Granulocyte % (Auto) , Nucleated Red Blood Cells % (auto) 0.3H, Ne utrophils 66, Band Neutrophils 6, Lymphocytes (Manual) 6L, Monocytes (Manual) 11H, Basophils (Manual) 4H, Metamyelocytes 3H, Myelocytes 2H, Promyelocytes 1H, Atypical Lymphocytes 1, Anisocytosis 1+, Platelet Estimate NORMAL, Anion Gap 3L, Glomerular Filtration Rate > 60.0, Uric Acid 3.9, Calcium Level 8.2L, Magnesium Level 2.2, Total Bilirubin 0.3, Aspartate Amino Transf (AST/SGOT) 19, Alanine Aminotransferase (ALT/SGPT) 21, Alkaline Phosphatase 298H, Total Protein 5.8L, Albumin 2.2L, Albumin/Globulin Ratio 0.61L CBC/BMP Laboratory Tests 08/14/19 05:37 Microbiology Microbiology 08/10/19 Blood Culture - Preliminary, Resulted No Growth after 72 hours. All specime... 08/10/19 Urine Culture - Final, Complete 08/10/19 Blood Culture - Preliminary, Resulted No Growth after 72 hours. All specime... Discharge Medications Scheduled Allopurinol (Zyloprim) 300 Mg Tablet, 300 MG PO DAILY for tumor lysis prophylaxis Aspirin (Ecotrin) 81 Mg Tablet.dr, 81 MG PO DAILY, (Reported) Escitalopram Oxalate (Lexapro) 10 Mg Tablet, 10 MG PO DAILY, (Reported) Lisinopril (Lisinopril) 40 Mg Tablet, 40 MG PO DAILY, (Reported) Oxycodone HCl (Oxycodone HCl ER) 10 Mg Tab.er.12h, 5 MG PO BID Pantoprazole Sodium (Pantoprazole Sodium) 40 Mg Tablet.dr, 40 MG PO DAILY Sennosides/Docusate Sodium (Senna Plus Tablet) 1 Each Tablet, 1 TAB PO BID Scheduled PRN Acetaminophen (Acetaminophen) 325 Mg Tablet, 975 MG PO Q8H PRN for BACK PAIN ALTERNATING WITH IBUPROFEN Hydrocodone/Acetaminophen (Hydrocodone-Acetamin 5-325 mg) 1 Each Tablet, 1 TAB PO Q4HP PRN for MODERATE/SEVERE PAIN (PS 5-10) Ibuprofen (Ibuprofen) 200 Mg Capsule, 600 MG PO Q8H PRN for BACK PAIN ALTERNATING WITH ACETAMINOPHEN Magnesium Hydroxide (Milk of Magnesia) 400 Mg/5 Ml Oral.susp, 30 ML PO BIDP PRN for CONSTIPATION Ondansetron HCl (Ondansetron HCl) 8 Mg Tablet, 8 MG PO Q6H PRN for NAUSEA OR VOMITING Allergies Coded Allergies: No Known Allergies (Unverified , 04/14/19) RONNIE HENNESSY MD Aug 14, 2019 08:30
--- NOTE | 2019-08-17 09:14 | CR ---
RADIATION ONCOLOGY CONSULTATION NOTE DATE OF CONSULTATION: 08/13/2019 CHART NUMBER: [id number]. DIAGNOSIS: Diffuse large B-cell lymphoma. STAGE: IVB. ECOG PERFORMANCE STATUS: 1. CONSULTATION NOTE: Mr. 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 I am being called to see whether or not there is any role for radiation of his thoracic spine. HISTORY OF PRESENT ILLNESS: The patient was in his usual state of health and reported approximately a 10-pound weight loss over the last 6 months or so. He began developing increased onset of right upper quadrant abdominal pain which began in May of this year. He reports at times the pain had progressed to a level 8/10. He also had nausea. A CT scan was undertaken, which showed hepatomegaly with multiple hypoattenuated foci throughout the liver concerning for metastatic disease. There was also noted to be splenomegaly with a 5.9 cm x 5.5 cm x 4.0 cm mass in the inferior pole of this the spleen. In addition, the patient reported drenching night sweats and anorexia. A PET scan was done on 07/08/2019, which showed gross abnormal hypermetabolic activity seen in the liver and spleen with SUV values ranging from 5-17. There was no abnormal hypermetabolic activity in the neck or chest. On 07/16/2019, the patient underwent a liver biopsy, and pathology revealed a diffuse large B-cell lymphoma, germinal center immunophenotype. The patient continued to have severe abdominal pain with a CT with contrast showing his cirrhotic appearance of the liver, as well as hepatic steatosis, hepatomegaly, and splenomegaly with moderate and multiple intrahepatic nodules. He was admitted and underwent his first cycle of R-CHOP on 07/31/2019. That was day #1. On day #2, he received rituximab followed by 2 days of filgrastim. He was intended to have filgrastim on a daily basis for 10 days, but apparently that did not happen. The patient was discharged and developed severe left upper and mid quadrant pain in the abdomen, which became quite severe; and he re-presented to the emergency room. His white blood cell count was 0.2. Absolute neutrophil count 0, hemoglobin 10, hematocrit 30, platelet count 110. He was restarted on filgrastim 40 mg [address] daily[address] The CT scan of the abdomen and pelvis was done on 08/10/2019. That showed free pelvic fluid. The bowel loops were within normal limits. There was a small amount of fluid trapped in a right inguinal canal. This was not imaged on prior studies. Bony windows showed spinal, hip, and sacroiliac joint degenerative changes, as well as tiny bilateral pleural effusions. An MRI of the T-spine was done on 08/11/2019. This showed an enhancing area measuring 2 cm abutting the left T6 vertebral body, suspicious for a paraspinous lymph node. There were nonspecific T7 signal intensity changes in the endplate with minimal enhancement. This was thought to be degenerative in nature but perhaps an osseous metastasis versus an MODIC type 1 inflammatory endplate degenerative change. There was a moderate degenerative disc and joint disease at T11-T12 and disc bulges present. This caused mild spinal and foraminal stenosis. I have personally reviewed the CT myself and then reviewed it with Dr. Ng, our on-site radiologist. Dr. Ng did not see any definitive sites of malignancy affecting the spinal cord nerve roots or metastatic sites of the vertebral bodies. He believed that that minimal enhancement at the endplate was more likely degenerative in nature. I agree with him, and I do not believe that this patient's abdominal symptoms are caused from spinal column or vertebral body metastasis. Of note, the patient was on high-dosed prednisone apparently. Then it was discontinued. Then it was reinitiated and discontinued again. I am unsure if any of his discomfort could be related to prednisone discontinuation issues. PAST MEDICAL HISTORY: The patient's past medical history is positive for liver disease, depression, cardiac problems, hypertension, prediabetes, seborrheic dermatitis, degenerative joint disease with chronic back pain and back issues, and macular degeneration. ALLERGIES: The patient has no known drug allergies. SOCIAL HISTORY: The patient has smoked one pack of cigarettes per day for 40 years. He quit in 2008. He does not abuse alcohol. FAMILY HISTORY: The patient's family history is positive for a mother with lung cancer. REVIEW OF SYSTEMS: The patient's review of systems is positive for some depression, as well as anorexia and weight loss. He reports weakness in his arms and legs and decreased energy. He reports that his abdominal pain is a 3/10 and much better this morning. He denies nausea, vomiting, fevers, chills, night sweats, diplopia, headaches, chest pain, urinary or bowel difficulties, or neurological problems at this time. PHYSICAL EXAMINATION: The patient was in his hospital bed eating breakfast. Therefore, physical examination was deferred at this point. The patient has just initiated his systemic therapy with R-CHOP a matter of a few days ago. At this time, if the systemic therapy is to work, it should work just as well on the 2 cm lymph node near the T6 vertebral level as it would on the remainder of his disease. Indeed, if the systemic therapy is not working, then this patient is in serious trouble. I do not believe the 2 cm lymph node near the level of T6 is the cause of his significant and widespread abdominal pain. Indeed, he has had this abdominal pain for quite some time. Review of his CAT scans and PET scans show a massive amount of liver disease, as well as spleen issues. The patient himself says he has had issues with back pain most of his life, and this is quite different. This feels abdominal and does not radiate from the back. Indeed, the patient denies back pain whatsoever. I have personally reviewed, as noted above, this MRI myself and with Dr. Ng, our radiologist, and do not see any issues within the MRI that could be contributory to his pain. Indeed, the only believed site of metastatic disease is at the level of T6, and his complaints do not follow that neurologic pattern. I am unclear as to the history of high-dosed steroids and the sudden withdrawal and then reinitiation and withdrawal again and the history. It is my understanding that this is not related to his discomfort, but again I find it interesting that his pain developed after he was discharged from systemic therapy and the prednisone was discontinued. Perhaps we are dealing with some tumor ascites or some reaction of his disease to therapy. Indeed, the patient reports that his abdominal pain this morning is much better. Overall, I feel it is too early following treatment to make a decision as to whether or not his R-CHOP therapy has been effective. If it is an effective treatment, it will treat all sites of disease, including this 2 cm nodule. If it is not effective, of course, radiation can be delivered to various problematic sites, although I do not believe his abdominal discomfort comes from the paraspinal T6 lymph node. In light of his GI complaints, constipation, nausea, and other issues, I would hesitate to radiate his abdomen, which would include radiating portions of his liver, spleen, and intestines, as well as stomach. We may, indeed, worsen his situation significantly by radiating him at this point. I believe he is undergoing the correct treatment, and I have confidence in his medical oncologist, Dr. Amy Guzman. I will defer to her expertise. I had a personal discussion with her and let her know we are available to her at any time if the situation changes. At this point, I have not set him up for any specific followup in our department. Thank you once again for allowing us to participate in the care of this gentleman. If I could be of any assistance whatsoever, please feel free to contact me at any time. As always, warm regards. Pb Lincoln cc: MD Wojciech Ryder MD
== END 2019-08-14 11:00 | disposition home or self-care (01) | DRG 809 ==
LOC: M ED 09:38 → M ED INP 14:21 → M ICU 15:44 → M MS5PR 08-12 17:47
PROVIDERS: ADMIT Family Medicine; ATTEND Internal Medicine
DX: D70.9 Neutropenia, unspecified (principal); C83.33 Diffuse large B-cell lymphoma, intra-abdominal lymph nodes; R18.8 Other ascites; C78.89 Secondary malignant neoplasm of other digestive organs; I11.9 Hypertensive heart disease without heart failure; R73.03 Prediabetes; E78.5 Hyperlipidemia, unspecified; H35.30 Unspecified macular degeneration; K59.00 Constipation, unspecified; F32.9 Major depressive disorder, single episode, unspecified; Z79.82 Long term (current) use of aspirin; Z79.52 Long term (current) use of systemic steroids; Z79.891 Long term (current) use of opiate analgesic; Z79.899 Other long term (current) drug therapy; Z66 Do not resuscitate; K21.9 Gastro-esophageal reflux disease without esophagitis; G89.3 Neoplasm related pain (acute) (chronic); Z87.891 Personal history of nicotine dependence

== ENCOUNTER → 2019-09-04 | Outpatient (CLI) | payer MEDICARE ==
[~2019-09-04] MED LIST changes: +ACET1TAB55 PO; +HYDR-4571 PO; +IBUP200C28 PO; +LIDOCAINE 1% MDV 20ML VIAL As Ordered ONE; +MOM30SS2 PO; +PANT40TA3 PO; +SENN-52 PO
[2019-09-04 14:20] VITALS: BP 145/76
--- NOTE | 2019-09-05 12:15 | REP ---
PICC line insertion under ultrasound guidance. The procedure was performed by QUE Ford, under the direct supervision of Dr. Williamson. The risks and benefits of the procedure were explained to the patient and informed consent was obtained both verbally and written. Directly prior to the start of the procedure, a formal timeout was completed in the procedure room. The left basilic vein was localized using ultrasound guidance. The skin was prepped and draped in the sterile fashion. 3 ml 1% lidocaine 10 mg/ml was used as a local anesthetic. Using ultrasound guidance the left basilic vein was cannulated and a 0.018 guidewire was inserted and advanced to the SVC using fluoroscopic guidance. The needle was removed and a 4.5 [place] dilator and peel-away sheath was inserted over the guidewire. A 4.5 [place] single lumen catheter was cut to the length of 40 cm. The dilator was removed and the catheter was inserted over the guide wire with the tip ending in the SVC. The peel-away sheath was removed and the catheter was flushed with heparinized saline as per hospital protocol. The catheter was affixed to the skin and a sterile dressing was applied. The patient tolerated the procedure well and there were no immediate complications. 0.2 minutes of fluoroscopy time was utilized for this procedure. Some fluoroscopic images are performed with last image hold technology. These images require no additional radiation. Reviewed by QUE Paul 09/04/2019 05:05 P Electronically Signed by Camron Williamson MD 09/05/2019 12:06 P
== END ==
LOC: M IRPRO 12:11
PROVIDERS: ATTEND Internal Medicine Medical Oncology
DX: C83.30 Diffuse large B-cell lymphoma, unspecified site (principal)
CPT/HCPCS: 36573; C1751

== ENCOUNTER 2019-09-06 10:30 | Emergency (ER) | payer MEDICARE ==
[~2019-09-06] VITALS: Ht 170.2 cm; Wt 73.6 kg
[2019-09-06 10:30] VITALS: BP 151/77
[~2019-09-06 10:30] MED LIST changes: -LIDOCAINE 1% MDV 20ML VIAL As Ordered ONE
[2019-09-06] MEDS ORDERED: SODIUM CHLORIDE 0.9% INJ 10 ML SYR IV PRN (10:45)
[2019-09-06] MEDS ORDERED: SODIUM CHLORIDE 0.9% INJ 10 ML SYR IV SCH (18:00)
== END 2019-09-06 11:12 | disposition home or self-care (01) ==
LOC: M ED 10:30
DX: Z45.2 Encounter for adjustment and management of vascular access device (principal); Z87.891 Personal history of nicotine dependence; Z79.899 Other long term (current) drug therapy

== ENCOUNTER 2019-09-07 10:22 | Emergency (ER) | payer MEDICARE ==
[~2019-09-07] VITALS: Ht 170.2 cm; Wt 74.5 kg
[2019-09-07 10:23] VITALS: BP 136/70
[2019-09-07] MEDS ORDERED: SODIUM CHLORIDE 0.9% INJ 10 ML SYR IV PRN (10:30)
[2019-09-07] MEDS ORDERED: SODIUM CHLORIDE 0.9% INJ 10 ML SYR IV SCH (18:00)
== END 2019-09-07 10:54 | disposition home or self-care (01) ==
LOC: M ED 10:22
DX: Z45.2 Encounter for adjustment and management of vascular access device (principal); C22.9 Malignant neoplasm of liver, not specified as primary or secondary; Z79.82 Long term (current) use of aspirin; Z79.899 Other long term (current) drug therapy

== ENCOUNTER → 2019-09-22 | Outpatient (REF) | payer MEDICARE ==
[2019-09-22 12:11] LABS: EOS # 0.7 10^3/uL (0.0-0.5); EOS % 12.5 % (0.0-3.0); HEMATOCRIT 28.9 % (42.0-52.0); HEMOGLOBIN 9.5 g/dl (13.5-17.5); LYMPH % 3.8 % (24.0-44.0); MEAN CORPUSCULAR HEMOGLOBIN 29.4 pg (27.0-33.0); MEAN CORPUSCULAR HGB CONC 32.9 g/dl (32.0-36.5); MEAN CORPUSCULAR VOLUME 89.5 fl (80.0-96.0); MONO % 0.8 % (0.0-5.0); NEUTROPHILS # 4.3 10^3/uL (1.5-8.5); NEUTROPHILS % 82.3 % (36.0-66.0); PLATELET COUNT, AUTOMATED 116 10^3/uL (150-450); RED BLOOD COUNT 3.23 10^6/uL (4.30-6.10); WHITE BLOOD COUNT 5.2 10^3/uL (4.0-10.0)
[2019-09-22 12:37] LABS: LYMPH # 0.2 10^3/uL (1.5-5.0)
[2019-09-22 12:42] LABS: ALBUMIN 2.9 GM/DL (3.2-5.2); ALT/SGPT 30 U/L (12-78); BILIRUBIN,TOTAL 0.5 MG/DL (0.2-1.0); BLOOD UREA NITROGEN 22 MG/DL (7-18); CALCIUM LEVEL 8.3 MG/DL (8.8-10.2); CARBON DIOXIDE LEVEL 28 MEQ/L (21-32); CHLORIDE LEVEL 109 MEQ/L (98-107); GLOMERULAR FILTRATION RATE > 60.0 (>42); GLUCOSE, FASTING 94 MG/DL (70-100); POTASSIUM SERUM 3.4 MEQ/L (3.5-5.1); SODIUM LEVEL 143 MEQ/L (136-145); TOTAL PROTEIN 5.6 GM/DL (6.4-8.2)
== END ==
LOC: M LAB REF 11:50
PROVIDERS: ATTEND Internal Medicine
DX: C83.30 Diffuse large B-cell lymphoma, unspecified site (principal)

== ENCOUNTER → 2019-09-25 | Outpatient (CLI) | payer MEDICARE ==
[~2019-09-25] MED LIST changes: +DAPS10TA PO; +GASTROGRAFIN SOLUTION 30ML (Q9963) As Ordered ONE; +ISOVUE-370 76% 100ML VIAL (Q9967) As Ordered ONE; +OMEP-218 PO; +ONDA8TAB10 PO; -ONDA8TAB7 PO; +SULF1TAB93
--- NOTE | 2019-09-25 14:40 | REP ---
CT chest with IV contrast: History: Diffuse large B-cell lymphoma. Splenomegaly. Comparison chest CT study June 12, 2019. CT contrast dose: 100 ml of intravenous Isovue 370 is administered. A right-sided Gleilb-E-Vamu catheter is noted in place. There is also a left-sided PICC line apparent. There is vascular calcification including coronary artery vascular calcification. No hilar or mediastinal mass or adenopathy is observed. There is no evidence of pleural or pericardial effusion. There is however some mild nodular pleural thickening on the right posteriorly and inferiorly which is not apparent previously. No pleural-based mass lesion is seen. No pulmonary nodule or mass lesion is seen. No infiltrate is noted. No endobronchial abnormality is seen. Multiple low-density liver lesions are seen. There is no evidence to suggest pulmonary embolus or acute aortic abnormality. No supraclavicular or axillary adenopathy is seen. No bony destructive lesion is seen. Impression: Question mild nodular pleural thickening developing in the right posterior pleural surface adjacent to the right lower lobe. Otherwise no active cardiopulmonary disease in the chest. Multiple liver masses again noted. Electronically Signed by Camron Williamson MD 09/25/2019 02:31 P
--- NOTE | 2019-09-25 15:06 | REP ---
CT abdomen and pelvis with IV and oral contrast: History: Diffuse large B-cell lymphoma. Comparison CT study August 12, 2019 and June 12, 2019. CT contrast dose: 100 mL of intravenous Isovue 370. CT findings: There is improvement noted in the hepatic and splenic masses when compared with the original CT study June 12, 2019. The splenic lesion measures 4.8 cm in greatest AP dimension today, 6.3 cm by my measurement on June 12, 2019. Right to left dimension has decreased from 5.2 cm previously to 3.5 cm today in the splenic lesion. No new splenic lesion is observed. The spleen remains enlarged. Multiple low-density liver mass lesions persist although these are significantly decreased from the June 12, 2019 study. These lesions also shows some improvement when compared with August 12, 2019. This is less dramatic. For example, there is a lesion in the posterior segment right lobe measuring 4.0 cm today, 5.2 cm on August 12 2019. In May, this measured 6.2 cm. The confluent lesion spanning the right and left lobe of the liver more anteriorly measures 8.2 cm in greatest dimension today. It was 10.3 cm by my measurement on August 12, 2019 at this level and 12.1 cm on June 12, 2019. No new liver lesion is appreciated. There is mild perihepatic and perisplenic ascites. No adrenal lesion is observed. No abnormalities noted in the pancreas or gallbladder. The kidneys enhance symmetrically. There is a cyst in the lower pole on the left which is unchanged. There are scattered small normal-sized retroperitoneal nodes unchanged. There is a tiny amount of ascites in the paracolic gutters and pelvic reflections. This is unchanged. There is a small right inguinal hernia which transmits some fluid as well as abdominal fat. Prostate, seminal vesicles and urinary bladder are unremarkable. Small and large bowel loops are unremarkable. Impression: Gradually decreasing multifocal hepatic and splenic masses. Mild ascites is again noted. No new mass lesion is appreciated. Right inguinal hernia transmits some abdominal fat and fluid. Electronically Signed by Camron Williamson MD 09/25/2019 06:31 P
== END ==
LOC: M RAD 11:57
PROVIDERS: ATTEND Internal Medicine Hematology
DX: R18.8 Other ascites (principal); K40.90 Unilateral inguinal hernia, without obstruction or gangrene, not specified as recurrent; C83.37 Diffuse large B-cell lymphoma, spleen; R91.8 Other nonspecific abnormal finding of lung field
CPT/HCPCS: 71260; 74177; Q9963; Q9967

== ENCOUNTER → 2019-09-25 | Outpatient (REF) | payer MEDICARE ==
[~2019-09-25] MED LIST changes: -DAPS10TA PO; -GASTROGRAFIN SOLUTION 30ML (Q9963) As Ordered ONE; -ISOVUE-370 76% 100ML VIAL (Q9967) As Ordered ONE; -OMEP-218 PO; -ONDA8TAB10 PO; +ONDA8TAB7 PO; -SULF1TAB93
[2019-09-25 19:00] LABS: ALBUMIN 2.8 GM/DL (3.2-5.2); ALT/SGPT 25 U/L (12-78); BILIRUBIN,TOTAL 0.3 MG/DL (0.2-1.0); BLOOD UREA NITROGEN 19 MG/DL (7-18); CALCIUM LEVEL 7.9 MG/DL (8.8-10.2); CARBON DIOXIDE LEVEL 26 MEQ/L (21-32); CHLORIDE LEVEL 108 MEQ/L (98-107); GLOMERULAR FILTRATION RATE > 60.0 (>42); GLUCOSE, FASTING 94 MG/DL (70-100); SODIUM LEVEL 142 MEQ/L (136-145)
[2019-09-25 19:16] LABS: HEMATOCRIT 26.3 % (42.0-52.0); HEMOGLOBIN 8.5 g/dl (13.5-17.5); MEAN CORPUSCULAR HGB CONC 32.3 g/dl (32.0-36.5); MEAN CORPUSCULAR VOLUME 92.9 fl (80.0-96.0); RED BLOOD COUNT 2.83 10^6/uL (4.30-6.10); WHITE BLOOD COUNT 8.7 10^3/uL (4.0-10.0)
[2019-09-25 19:59] LABS: PLATELET COUNT, AUTOMATED 79 10^3/uL (150-450)
[2019-09-25 20:07] LABS: EOSINOPHILS 18 % (0-3); LYMPHOCYTES 3 % (16-44); MONOCYTES 1 % (0-5); NEUTROPHILS 78 % (28-66)
[2019-09-25 20:08] LABS: PLATELET ESTIMATE DECREASED (NORMAL)
[2019-09-25 20:09] LABS: ANISOCYTOSIS 1+
== END ==
LOC: M SHH 17:35
PROVIDERS: ATTEND Internal Medicine
DX: C83.30 Diffuse large B-cell lymphoma, unspecified site (principal)

== ENCOUNTER → 2019-09-29 | Outpatient (REF) | payer MEDICARE ==
[~2019-09-29] MED LIST changes: +DAPS10TA PO; +OMEP-218 PO; +ONDA8TAB10 PO; -ONDA8TAB7 PO; +SULF1TAB93
[2019-09-29 19:17] LABS: HEMATOCRIT 28.5 % (42.0-52.0); HEMOGLOBIN 9.2 g/dl (13.5-17.5); MEAN CORPUSCULAR HEMOGLOBIN 30.2 pg (27.0-33.0); MEAN CORPUSCULAR HGB CONC 32.3 g/dl (32.0-36.5); MEAN CORPUSCULAR VOLUME 93.4 fl (80.0-96.0); RED BLOOD COUNT 3.05 10^6/uL (4.30-6.10); WHITE BLOOD COUNT 4.7 10^3/uL (4.0-10.0)
[2019-09-29 19:24] LABS: ALBUMIN 3.2 GM/DL (3.2-5.2); ALT/SGPT 24 U/L (12-78); BILIRUBIN,TOTAL 0.2 MG/DL (0.2-1.0); BLOOD UREA NITROGEN 12 MG/DL (7-18); CALCIUM LEVEL 8.6 MG/DL (8.8-10.2); CARBON DIOXIDE LEVEL 28 MEQ/L (21-32); CHLORIDE LEVEL 106 MEQ/L (98-107); CREATININE FOR GFR 0.81 MG/DL (0.70-1.30); GLOMERULAR FILTRATION RATE > 60.0 (>42); GLUCOSE, FASTING 116 MG/DL (70-100); POTASSIUM SERUM 3.8 MEQ/L (3.5-5.1); SODIUM LEVEL 141 MEQ/L (136-145); TOTAL PROTEIN 5.9 GM/DL (6.4-8.2)
[2019-09-29 19:27] LABS: PLATELET COUNT, AUTOMATED 85 10^3/uL (150-450)
[2019-09-29 20:11] LABS: BASOPHILS 4 % (0-1); EOSINOPHILS 16 % (0-3); LYMPHOCYTES 14 % (16-44); METAMYELOCYTES 2 % (0-0); MONOCYTES 15 % (0-5); MYELOCYTES 4 % (0-0); NEUTROPHILS 41 % (28-66); PLATELET ESTIMATE DECREASED (NORMAL); PROMYELOCYTES 1 % (0-0)
[2019-09-29 20:13] LABS: ANISOCYTOSIS 2+
== END ==
LOC: M SHH 17:49
PROVIDERS: ATTEND Internal Medicine
DX: C83.30 Diffuse large B-cell lymphoma, unspecified site (principal)

== ENCOUNTER → 2019-10-02 | Outpatient (REF) | payer MEDICARE ==
[2019-10-02 13:26] LABS: HEMATOCRIT 29.8 % (42.0-52.0); HEMOGLOBIN 9.7 g/dl (13.5-17.5); MEAN CORPUSCULAR HEMOGLOBIN 30.4 pg (27.0-33.0); MEAN CORPUSCULAR HGB CONC 32.6 g/dl (32.0-36.5); MEAN CORPUSCULAR VOLUME 93.4 fl (80.0-96.0); RED BLOOD COUNT 3.19 10^6/uL (4.30-6.10); WHITE BLOOD COUNT 9.4 10^3/uL (4.0-10.0)
[2019-10-02 13:29] LABS: PLATELET COUNT, AUTOMATED 97 10^3/uL (150-450)
[2019-10-02 13:48] LABS: ATYPICAL LYMPH 1 % (0-5); BASOPHILS 1 % (0-1); EOSINOPHILS 7 % (0-3); LYMPHOCYTES 8 % (16-44); MONOCYTES 7 % (0-5); MYELOCYTES 3 % (0-0); NEUTROPHILS 70 % (28-66)
[2019-10-02 13:51] LABS: MICROCYTOSIS 1+; OVALOCYTES 1+; TEAR DROP CELLS 2+
[2019-10-02 13:52] LABS: PLATELET ESTIMATE DECREASED (NORMAL)
[2019-10-02 14:07] LABS: ALBUMIN 3.4 GM/DL (3.2-5.2); ALT/SGPT 25 U/L (12-78); BILIRUBIN,TOTAL 0.2 MG/DL (0.2-1.0); BLOOD UREA NITROGEN 20 MG/DL (7-18); CALCIUM LEVEL 8.9 MG/DL (8.8-10.2); CARBON DIOXIDE LEVEL 27 MEQ/L (21-32); CHLORIDE LEVEL 106 MEQ/L (98-107); GLOMERULAR FILTRATION RATE > 60.0 (>42); GLUCOSE, FASTING 107 MG/DL (70-100); POTASSIUM SERUM 3.7 MEQ/L (3.5-5.1); SODIUM LEVEL 141 MEQ/L (136-145); TOTAL PROTEIN 6.1 GM/DL (6.4-8.2)
== END ==
LOC: M SHH 12:40
PROVIDERS: ATTEND Internal Medicine
DX: C83.30 Diffuse large B-cell lymphoma, unspecified site (principal)

== ENCOUNTER → 2019-10-13 | Outpatient (REF) | payer MEDICARE ==
[2019-10-13 14:14] LABS: ALT/SGPT 56 U/L (12-78); BILIRUBIN,TOTAL 0.6 MG/DL (0.2-1.0); BLOOD UREA NITROGEN 20 MG/DL (7-18); CALCIUM LEVEL 8.2 MG/DL (8.8-10.2); CARBON DIOXIDE LEVEL 31 MEQ/L (21-32); CHLORIDE LEVEL 105 MEQ/L (98-107); CREATININE FOR GFR 0.72 MG/DL (0.70-1.30); GLOMERULAR FILTRATION RATE > 60.0 (>42); GLUCOSE, FASTING 117 MG/DL (70-100); POTASSIUM SERUM 3.1 MEQ/L (3.5-5.1); SODIUM LEVEL 141 MEQ/L (136-145); TOTAL PROTEIN 5.3 GM/DL (6.4-8.2)
[2019-10-13 14:24] LABS: HEMATOCRIT 30.1 % (42.0-52.0); HEMOGLOBIN 9.6 g/dl (13.5-17.5); MEAN CORPUSCULAR HEMOGLOBIN 30.2 pg (27.0-33.0); MEAN CORPUSCULAR HGB CONC 31.9 g/dl (32.0-36.5); MEAN CORPUSCULAR VOLUME 94.7 fl (80.0-96.0); PLATELET COUNT, AUTOMATED 137 10^3/uL (150-450); RED BLOOD COUNT 3.18 10^6/uL (4.30-6.10); WHITE BLOOD COUNT 4.4 10^3/uL (4.0-10.0)
[2019-10-13 15:15] LABS: ANISOCYTOSIS 2+; EOSINOPHILS 1 % (0-3); HYPOCHROMASIA 1+; LYMPHOCYTES 5 % (16-44); MONOCYTES 2 % (0-5); NEUTROPHILS 91 % (28-66)
[2019-10-13 15:16] LABS: PLATELET ESTIMATE NORMAL (NORMAL); TEAR DROP CELLS 1+
== END ==
LOC: M SHH 13:20 → M LAB REF 13:20
PROVIDERS: ATTEND Internal Medicine
DX: C83.30 Diffuse large B-cell lymphoma, unspecified site (principal)

== ENCOUNTER → 2019-10-16 | Outpatient (REF) | payer MEDICARE ==
[2019-10-16 16:57] LABS: HEMATOCRIT 25.8 % (42.0-52.0); HEMOGLOBIN 8.3 g/dl (13.5-17.5); MEAN CORPUSCULAR HEMOGLOBIN 31.1 pg (27.0-33.0); MEAN CORPUSCULAR HGB CONC 32.2 g/dl (32.0-36.5); MEAN CORPUSCULAR VOLUME 96.6 fl (80.0-96.0); PLATELET COUNT, AUTOMATED 103 10^3/uL (150-450); RED BLOOD COUNT 2.67 10^6/uL (4.30-6.10); WHITE BLOOD COUNT 6.1 10^3/uL (4.0-10.0)
[2019-10-16 17:01] LABS: ALBUMIN 3.1 GM/DL (3.2-5.2); ALT/SGPT 31 U/L (12-78); BILIRUBIN,TOTAL 0.4 MG/DL (0.2-1.0); BLOOD UREA NITROGEN 20 MG/DL (7-18); CALCIUM LEVEL 8.2 MG/DL (8.8-10.2); CARBON DIOXIDE LEVEL 31 MEQ/L (21-32); CHLORIDE LEVEL 105 MEQ/L (98-107); CREATININE FOR GFR 0.64 MG/DL (0.70-1.30); GLOMERULAR FILTRATION RATE > 60.0 (>42); GLUCOSE, FASTING 104 MG/DL (70-100); POTASSIUM SERUM 4.1 MEQ/L (3.5-5.1); SODIUM LEVEL 140 MEQ/L (136-145); TOTAL PROTEIN 5.4 GM/DL (6.4-8.2)
== END ==
LOC: M SHH 16:01
PROVIDERS: ATTEND Internal Medicine
DX: C83.30 Diffuse large B-cell lymphoma, unspecified site (principal)

== ENCOUNTER → 2019-10-20 | Outpatient (REF) | payer MEDICARE ==
[2019-10-20 15:42] LABS: HEMATOCRIT 26.3 % (42.0-52.0); MEAN CORPUSCULAR HEMOGLOBIN 30.1 pg (27.0-33.0); MEAN CORPUSCULAR HGB CONC 30.4 g/dl (32.0-36.5); MEAN CORPUSCULAR VOLUME 98.9 fl (80.0-96.0); RED BLOOD COUNT 2.66 10^6/uL (4.30-6.10)
[2019-10-20 15:43] LABS: PLATELET COUNT, AUTOMATED 83 10^3/uL (150-450)
[2019-10-20 16:04] LABS: ALBUMIN 3.2 GM/DL (3.2-5.2); ALT/SGPT 24 U/L (12-78); BILIRUBIN,TOTAL 0.3 MG/DL (0.2-1.0); BLOOD UREA NITROGEN 11 MG/DL (7-18); CALCIUM LEVEL 8.5 MG/DL (8.8-10.2); CARBON DIOXIDE LEVEL 28 MEQ/L (21-32); CHLORIDE LEVEL 105 MEQ/L (98-107); CREATININE FOR GFR 0.91 MG/DL (0.70-1.30); GLOMERULAR FILTRATION RATE > 60.0 (>42); GLUCOSE, FASTING 98 MG/DL (70-100); POTASSIUM SERUM 3.6 MEQ/L (3.5-5.1); SODIUM LEVEL 141 MEQ/L (136-145); TOTAL PROTEIN 5.6 GM/DL (6.4-8.2)
[2019-10-20 16:15] LABS: ATYPICAL LYMPH 6 % (0-5); BASOPHILS 2 % (0-1); EOSINOPHILS 7 % (0-3); LYMPHOCYTES 14 % (16-44); METAMYELOCYTES 4 % (0-0); MONOCYTES 14 % (0-5); MYELOCYTES 8 % (0-0); NEUTROPHILS 39 % (28-66)
[2019-10-20 16:17] LABS: PLATELET ESTIMATE DECREASED (NORMAL); TEAR DROP CELLS 4+
[2019-10-20 16:20] LABS: MICROCYTOSIS 1+
== END ==
LOC: M SHH 14:45
PROVIDERS: ATTEND Internal Medicine
DX: C83.30 Diffuse large B-cell lymphoma, unspecified site (principal)

== ENCOUNTER 2019-10-21 14:36 | Outpatient (CLI) | payer MEDICARE ==
[~2019-10-21] VITALS: Ht 170.2 cm; Wt 79.7 kg
[2019-10-21 14:40] VITALS: BP 112/56
[2019-10-21] MEDS ORDERED: ALTEPLASE 2 MG/2 ML VIAL (J2997 PER 1MG) IV PRN (15:00)
[2019-10-21] MEDS ORDERED: SODIUM CHLORIDE 0.9% INJ 10 ML SYR IV PRN (15:00)
[2019-10-21] MEDS ORDERED: SODIUM CHLORIDE 0.9% INJ 10 ML SYR IV SCH (18:00)
== END 2019-10-21 15:50 | disposition home or self-care (01) ==
LOC: M INFU 14:36
PROVIDERS: ATTEND Nurse Practitioner Adult Health
DX: T82.898A Other specified complication of vascular prosthetic devices, implants and grafts, initial encounter (principal)
CPT/HCPCS: 36592; J2997

== ENCOUNTER → 2019-10-23 | Outpatient (REF) | payer MEDICARE ==
[2019-10-23 17:07] LABS: ALBUMIN 3.4 GM/DL (3.2-5.2); ALT/SGPT 29 U/L (12-78); BILIRUBIN,TOTAL 0.5 MG/DL (0.2-1.0); BLOOD UREA NITROGEN 10 MG/DL (7-18); CALCIUM LEVEL 8.4 MG/DL (8.8-10.2); CARBON DIOXIDE LEVEL 30 MEQ/L (21-32); CHLORIDE LEVEL 108 MEQ/L (98-107); CREATININE FOR GFR 0.92 MG/DL (0.70-1.30); GLOMERULAR FILTRATION RATE > 60.0 (>42); GLUCOSE, FASTING 118 MG/DL (70-100); POTASSIUM SERUM 4.2 MEQ/L (3.5-5.1); SODIUM LEVEL 142 MEQ/L (136-145)
[2019-10-23 17:10] LABS: HEMATOCRIT 27.3 % (42.0-52.0); HEMOGLOBIN 8.3 g/dl (13.5-17.5); MEAN CORPUSCULAR HEMOGLOBIN 30.1 pg (27.0-33.0); MEAN CORPUSCULAR HGB CONC 30.4 g/dl (32.0-36.5); MEAN CORPUSCULAR VOLUME 98.9 fl (80.0-96.0); PLATELET COUNT, AUTOMATED 137 10^3/uL (150-450); RED BLOOD COUNT 2.76 10^6/uL (4.30-6.10); WHITE BLOOD COUNT 16.1 10^3/uL (4.0-10.0)
[2019-10-23 17:52] LABS: ATYPICAL LYMPH 3 % (0-5); EOSINOPHILS 2 % (0-3); LYMPHOCYTES 1 % (16-44); METAMYELOCYTES 5 % (0-0); MONOCYTES 11 % (0-5); MYELOCYTES 5 % (0-0); NEUTROPHILS 63 % (28-66)
[2019-10-23 17:53] LABS: TEAR DROP CELLS 3+
[2019-10-23 17:56] LABS: MICROCYTOSIS 1+; PLATELET ESTIMATE DECREASED (NORMAL); POLYCHROMASIA 1+
== END ==
LOC: M SHH 15:54
PROVIDERS: ATTEND Internal Medicine
DX: C83.30 Diffuse large B-cell lymphoma, unspecified site (principal)

== ENCOUNTER → 2019-11-03 | Outpatient (REF) | payer MEDICARE ==
[2019-11-03 16:24] LABS: HEMATOCRIT 23.8 % (42.0-52.0); HEMOGLOBIN 7.5 g/dl (13.5-17.5); MEAN CORPUSCULAR HEMOGLOBIN 30.6 pg (27.0-33.0); MEAN CORPUSCULAR HGB CONC 31.5 g/dl (32.0-36.5); MEAN CORPUSCULAR VOLUME 97.1 fl (80.0-96.0); PLATELET COUNT, AUTOMATED 145 10^3/uL (150-450); RED BLOOD COUNT 2.45 10^6/uL (4.30-6.10); WHITE BLOOD COUNT 4.7 10^3/uL (4.0-10.0)
[2019-11-03 16:43] LABS: ALBUMIN 2.9 GM/DL (3.2-5.2); ALT/SGPT 54 U/L (12-78); BILIRUBIN,TOTAL 0.4 MG/DL (0.2-1.0); BLOOD UREA NITROGEN 24 MG/DL (7-18); CARBON DIOXIDE LEVEL 30 MEQ/L (21-32); CHLORIDE LEVEL 106 MEQ/L (98-107); CREATININE FOR GFR 0.67 MG/DL (0.70-1.30); GLOMERULAR FILTRATION RATE > 60.0 (>42); GLUCOSE, FASTING 107 MG/DL (70-100); POTASSIUM SERUM 3.4 MEQ/L (3.5-5.1); SODIUM LEVEL 142 MEQ/L (136-145); TOTAL PROTEIN 4.9 GM/DL (6.4-8.2)
[2019-11-03 16:52] LABS: BASOPHILS 1 % (0-1); EOSINOPHILS 1 % (0-3); LYMPHOCYTES 4 % (16-44); METAMYELOCYTES 1 % (0-0); MYELOCYTES 1 % (0-0); NEUTROPHILS 92 % (28-66)
[2019-11-03 16:54] LABS: OVALOCYTES 1+; TEAR DROP CELLS 4+
[2019-11-03 16:55] LABS: PLATELET ESTIMATE NORMAL (NORMAL)
== END ==
LOC: M LAB REF 15:49 → M SHH 15:49
PROVIDERS: ATTEND Internal Medicine
DX: C83.30 Diffuse large B-cell lymphoma, unspecified site (principal)

== ENCOUNTER 2019-11-06 10:39 | Outpatient (CLI) | payer MEDICARE ==
[~2019-11-06] VITALS: Ht 162.6 cm; Wt 79.2 kg
[2019-11-06] VITALS (7 sets, daily range): BP systolic 102–140; BP diastolic 52–82
[~2019-11-06 10:39] MED LIST changes: +ACETAMINOPHEN TAB 650MG DOSE (2X325MG) PO SCH; +diphenhydrAMINE 25 MG CAP PO SCH
[2019-11-06] MEDS ORDERED: SODIUM CHLORIDE 0.9% INJ 10 ML SYR IV PRN (11:15)
[2019-11-07] MEDS ORDERED: SODIUM CHLORIDE 0.9% INJ 10 ML SYR IV SCH (09:00)
== END 2019-11-06 17:50 | disposition home or self-care (01) ==
LOC: M INFU 10:39
PROVIDERS: ATTEND Internal Medicine Medical Oncology
DX: D64.9 Anemia, unspecified (principal); C83.30 Diffuse large B-cell lymphoma, unspecified site
CPT/HCPCS: 36415; 36430; 80053; 85025; 85049; 85055; 86850; 86900; 86901; 86920; J1642; P9016

== ENCOUNTER → 2019-11-06 | Outpatient (REF) | payer MEDICARE ==
[2019-11-06 12:27] LABS: MEAN CORPUSCULAR HGB CONC 31.3 g/dl (32.0-36.5); RED BLOOD COUNT 2.03 10^6/uL (4.30-6.10); WHITE BLOOD COUNT 9.2 10^3/uL (4.0-10.0)
[2019-11-06 12:38] LABS: ALT/SGPT 34 U/L (12-78); BILIRUBIN,TOTAL 0.5 MG/DL (0.2-1.0); BLOOD UREA NITROGEN 17 MG/DL (7-18); CALCIUM LEVEL 8.2 MG/DL (8.8-10.2); CARBON DIOXIDE LEVEL 30 MEQ/L (21-32); CHLORIDE LEVEL 107 MEQ/L (98-107); GLOMERULAR FILTRATION RATE > 60.0 (>42); GLUCOSE, FASTING 99 MG/DL (70-100); POTASSIUM SERUM 4.2 MEQ/L (3.5-5.1); SODIUM LEVEL 140 MEQ/L (136-145); TOTAL PROTEIN 5.1 GM/DL (6.4-8.2)
[2019-11-06 12:51] LABS: HEMATOCRIT 20.1 % (42.0-52.0); HEMOGLOBIN 6.3 g/dl (13.5-17.5); PLATELET COUNT, AUTOMATED 90 10^3/uL (150-450)
[2019-11-06 12:55] LABS: MONOCYTES 1 % (0-5); NEUTROPHILS 99 % (28-66); PLATELET ESTIMATE DECREASED (NORMAL)
[2019-11-06 12:57] LABS: HYPOCHROMASIA 1+; OVALOCYTES 1+
[2019-11-06 12:58] LABS: TEAR DROP CELLS 3+
== END ==
LOC: M SHH 11:18
PROVIDERS: ATTEND Internal Medicine
DX: C83.30 Diffuse large B-cell lymphoma, unspecified site (principal)

== ENCOUNTER → 2019-11-10 | Outpatient (REF) | payer MEDICARE ==
[~2019-11-10] MED LIST changes: -ACETAMINOPHEN TAB 650MG DOSE (2X325MG) PO SCH; -diphenhydrAMINE 25 MG CAP PO SCH
[2019-11-11 11:28] LABS: HEMATOCRIT 25.5 % (42.0-52.0); HEMOGLOBIN 8.3 g/dl (13.5-17.5); MEAN CORPUSCULAR HEMOGLOBIN 31.8 pg (27.0-33.0); MEAN CORPUSCULAR HGB CONC 32.5 g/dl (32.0-36.5); MEAN CORPUSCULAR VOLUME 97.7 fl (80.0-96.0); RED BLOOD COUNT 2.61 10^6/uL (4.30-6.10); WHITE BLOOD COUNT 4.4 10^3/uL (4.0-10.0)
[2019-11-11 11:29] LABS: PLATELET COUNT, AUTOMATED 65 10^3/uL (150-450)
[2019-11-11 11:35] LABS: ALBUMIN 3.5 GM/DL (3.2-5.2); ALT/SGPT 29 U/L (12-78); BILIRUBIN,TOTAL 0.5 MG/DL (0.2-1.0); BLOOD UREA NITROGEN 11 MG/DL (7-18); CALCIUM LEVEL 8.4 MG/DL (8.8-10.2); CARBON DIOXIDE LEVEL 28 MEQ/L (21-32); CHLORIDE LEVEL 106 MEQ/L (98-107); CREATININE FOR GFR 0.81 MG/DL (0.70-1.30); GLOMERULAR FILTRATION RATE > 60.0 (>42); GLUCOSE, FASTING 104 MG/DL (70-100); POTASSIUM SERUM 3.7 MEQ/L (3.5-5.1); SODIUM LEVEL 140 MEQ/L (136-145); TOTAL PROTEIN 5.8 GM/DL (6.4-8.2)
[2019-11-11 13:21] LABS: BASOPHILS 1 % (0-1); EOSINOPHILS 4 % (0-3); LYMPHOCYTES 43 % (16-44); METAMYELOCYTES 4 % (0-0); MONOCYTES 9 % (0-5); MYELOCYTES 2 % (0-0); NEUTROPHILS 10 % (28-66); PLATELET ESTIMATE DECREASED (NORMAL); PROMYELOCYTES 1 % (0-0)
== END ==
LOC: M LABDRAWC 10:59
PROVIDERS: ATTEND Internal Medicine
DX: C83.30 Diffuse large B-cell lymphoma, unspecified site (principal)

== ENCOUNTER → 2019-11-12 | Outpatient (REF) | payer MEDICARE ==
[2019-11-12 16:51] LABS: HEMATOCRIT 25.1 % (42.0-52.0); HEMOGLOBIN 7.9 g/dl (13.5-17.5); MEAN CORPUSCULAR HEMOGLOBIN 31.6 pg (27.0-33.0); MEAN CORPUSCULAR HGB CONC 31.5 g/dl (32.0-36.5); MEAN CORPUSCULAR VOLUME 100.4 fl (80.0-96.0); WHITE BLOOD COUNT 11.1 10^3/uL (4.0-10.0)
[2019-11-12 16:52] LABS: ALBUMIN 3.3 GM/DL (3.2-5.2); ALT/SGPT 24 U/L (12-78); BILIRUBIN,TOTAL 0.4 MG/DL (0.2-1.0); BLOOD UREA NITROGEN 11 MG/DL (7-18); CALCIUM LEVEL 8.6 MG/DL (8.8-10.2); CARBON DIOXIDE LEVEL 28 MEQ/L (21-32); CHLORIDE LEVEL 107 MEQ/L (98-107); CREATININE FOR GFR 0.95 MG/DL (0.70-1.30); GLOMERULAR FILTRATION RATE > 60.0 (>42); GLUCOSE, FASTING 120 MG/DL (70-100); POTASSIUM SERUM 3.5 MEQ/L (3.5-5.1); SODIUM LEVEL 142 MEQ/L (136-145); TOTAL PROTEIN 5.5 GM/DL (6.4-8.2)
[2019-11-12 17:20] LABS: PLATELET COUNT, AUTOMATED 87 10^3/uL (150-450)
[2019-11-12 17:24] LABS: ANISOCYTOSIS 1+; ATYPICAL LYMPH 1 % (0-5); EOSINOPHILS 1 % (0-3); LYMPHOCYTES 3 % (16-44); METAMYELOCYTES 5 % (0-0); MONOCYTES 4 % (0-5); MYELOCYTES 3 % (0-0); NEUTROPHILS 75 % (28-66); PLATELET ESTIMATE DECREASED (NORMAL)
== END ==
LOC: M SHH 16:20
PROVIDERS: ATTEND Internal Medicine
DX: C83.30 Diffuse large B-cell lymphoma, unspecified site (principal)

== ENCOUNTER → 2019-11-24 | Outpatient (REF) | payer MEDICARE ==
[2019-11-24 16:56] LABS: HEMATOCRIT 23.9 % (42.0-52.0); HEMOGLOBIN 7.7 g/dl (13.5-17.5); MEAN CORPUSCULAR HGB CONC 32.2 g/dl (32.0-36.5); MEAN CORPUSCULAR VOLUME 99.2 fl (80.0-96.0); PLATELET COUNT, AUTOMATED 154 10^3/uL (150-450); RED BLOOD COUNT 2.41 10^6/uL (4.30-6.10); WHITE BLOOD COUNT 4.6 10^3/uL (4.0-10.0)
[2019-11-24 17:02] LABS: ALBUMIN 3.1 GM/DL (3.2-5.2); ALT/SGPT 56 U/L (12-78); BILIRUBIN,TOTAL 0.5 MG/DL (0.2-1.0); BLOOD UREA NITROGEN 25 MG/DL (7-18); CALCIUM LEVEL 8.1 MG/DL (8.8-10.2); CARBON DIOXIDE LEVEL 31 MEQ/L (21-32); CHLORIDE LEVEL 106 MEQ/L (98-107); CREATININE FOR GFR 0.59 MG/DL (0.70-1.30); GLOMERULAR FILTRATION RATE > 60.0 (>42); GLUCOSE, FASTING 79 MG/DL (70-100); POTASSIUM SERUM 3.6 MEQ/L (3.5-5.1); SODIUM LEVEL 141 MEQ/L (136-145); TOTAL PROTEIN 5.1 GM/DL (6.4-8.2)
[2019-11-24 18:03] LABS: EOSINOPHILS 1 % (0-3); LYMPHOCYTES 7 % (16-44); NEUTROPHILS 91 % (28-66)
[2019-11-24 18:04] LABS: TEAR DROP CELLS 4+
[2019-11-24 18:06] LABS: OVALOCYTES 1+; PLATELET ESTIMATE NORMAL (NORMAL)
== END ==
LOC: M SHH 16:07
PROVIDERS: ATTEND Internal Medicine
DX: C83.30 Diffuse large B-cell lymphoma, unspecified site (principal)

== ENCOUNTER 2019-11-26 13:07 | Outpatient (CLI) | payer MEDICARE ==
[~2019-11-26] VITALS: Ht 165.1 cm; Wt 79.8 kg
[~2019-11-26 13:07] MED LIST changes: +ACETAMINOPHEN TAB 650MG DOSE (2X325MG) PO SCH; +diphenhydrAMINE 25 MG CAP PO SCH
[2019-11-26 13:30] VITALS: BP 105/57
[2019-11-26 14:00] VITALS: BP 120/57
[2019-11-26 15:00] VITALS: BP 121/61
[2019-11-26 15:05] VITALS: BP 121/61
[2019-11-26 15:10] VITALS: BP 121/61
[2019-11-26] MEDS ORDERED: SODIUM CHLORIDE 0.9% INJ 10 ML SYR IV PRN (15:30)
[2019-11-26] MEDS ORDERED: SODIUM CHLORIDE 0.9% INJ 10 ML SYR IV SCH (18:00)
== END 2019-11-26 15:30 | disposition home or self-care (01) ==
LOC: M INFU 13:07
PROVIDERS: ATTEND Internal Medicine Medical Oncology
DX: D64.9 Anemia, unspecified (principal); C83.30 Diffuse large B-cell lymphoma, unspecified site
CPT/HCPCS: 36430; 36591; 86850; 86900; 86901; 86920; P9016

== ENCOUNTER → 2019-11-27 | Outpatient (REF) | payer MEDICARE ==
[~2019-11-27] MED LIST changes: -ACETAMINOPHEN TAB 650MG DOSE (2X325MG) PO SCH; -diphenhydrAMINE 25 MG CAP PO SCH
[2019-11-27 19:47] LABS: HEMATOCRIT 25.6 % (42.0-52.0); HEMOGLOBIN 8.1 g/dl (13.5-17.5); MEAN CORPUSCULAR HEMOGLOBIN 31.6 pg (27.0-33.0); MEAN CORPUSCULAR HGB CONC 31.6 g/dl (32.0-36.5); PLATELET COUNT, AUTOMATED 101 10^3/uL (150-450); RED BLOOD COUNT 2.56 10^6/uL (4.30-6.10); WHITE BLOOD COUNT 9.9 10^3/uL (4.0-10.0)
[2019-11-27 19:48] LABS: ALBUMIN 3.3 GM/DL (3.2-5.2); ALT/SGPT 33 U/L (12-78); BILIRUBIN,TOTAL 0.5 MG/DL (0.2-1.0); BLOOD UREA NITROGEN 20 MG/DL (7-18); CARBON DIOXIDE LEVEL 29 MEQ/L (21-32); CHLORIDE LEVEL 107 MEQ/L (98-107); CREATININE FOR GFR 0.64 MG/DL (0.70-1.30); GLOMERULAR FILTRATION RATE > 60.0 (>42); GLUCOSE, FASTING 94 MG/DL (70-100); POTASSIUM SERUM 4.1 MEQ/L (3.5-5.1); SODIUM LEVEL 140 MEQ/L (136-145); TOTAL PROTEIN 5.6 GM/DL (6.4-8.2)
[2019-11-27 20:18] LABS: EOSINOPHILS 2 % (0-3); LYMPHOCYTES 3 % (16-44); NEUTROPHILS 95 % (28-66); PLATELET ESTIMATE DECREASED (NORMAL)
[2019-11-27 20:19] LABS: POIKILOCYTOSIS 1+; TEAR DROP CELLS 1+
== END ==
LOC: M SHH 19:10
PROVIDERS: ATTEND Internal Medicine
DX: C83.30 Diffuse large B-cell lymphoma, unspecified site (principal)

== ENCOUNTER → 2019-12-01 | Outpatient (REF) | payer MEDICARE ==
[2019-12-01 12:08] LABS: HEMOGLOBIN 7.1 g/dl (13.5-17.5); MEAN CORPUSCULAR HGB CONC 32.3 g/dl (32.0-36.5); MEAN CORPUSCULAR VOLUME 99.1 fl (80.0-96.0); RED BLOOD COUNT 2.22 10^6/uL (4.30-6.10); WHITE BLOOD COUNT 2.3 10^3/uL (4.0-10.0)
[2019-12-01 12:24] LABS: PLATELET COUNT, AUTOMATED 55 10^3/uL (150-450)
[2019-12-01 12:31] LABS: ALBUMIN 3.4 GM/DL (3.2-5.2); ALT/SGPT 32 U/L (12-78); BILIRUBIN,TOTAL 0.4 MG/DL (0.2-1.0); BLOOD UREA NITROGEN 9 MG/DL (7-18); CALCIUM LEVEL 8.6 MG/DL (8.8-10.2); CARBON DIOXIDE LEVEL 29 MEQ/L (21-32); CHLORIDE LEVEL 107 MEQ/L (98-107); CREATININE FOR GFR 0.87 MG/DL (0.70-1.30); GLOMERULAR FILTRATION RATE > 60.0 (>42); GLUCOSE, FASTING 78 MG/DL (70-100); POTASSIUM SERUM 4.1 MEQ/L (3.5-5.1); SODIUM LEVEL 142 MEQ/L (136-145); TOTAL PROTEIN 5.7 GM/DL (6.4-8.2)
[2019-12-01 12:37] LABS: BASOPHILS 5 % (0-1); EOSINOPHILS 4 % (0-3); LYMPHOCYTES 21 % (16-44); MONOCYTES 25 % (0-5); NEUTROPHILS 40 % (28-66)
[2019-12-01 12:38] LABS: ANISOCYTOSIS 2+; HYPOCHROMASIA 2+; PLATELET ESTIMATE DECREASED (NORMAL); POLYCHROMASIA 2+; TEAR DROP CELLS 1+
== END ==
LOC: M SHH 11:44 → M LABDRAWC 11:44
PROVIDERS: ATTEND Internal Medicine
DX: C83.30 Diffuse large B-cell lymphoma, unspecified site (principal)

== ENCOUNTER → 2019-12-04 | Outpatient (REF) | payer MEDICARE ==
[2019-12-04 16:38] LABS: HEMATOCRIT 24.1 % (42.0-52.0); HEMOGLOBIN 7.7 g/dl (13.5-17.5); MEAN CORPUSCULAR HEMOGLOBIN 32.4 pg (27.0-33.0); MEAN CORPUSCULAR VOLUME 101.3 fl (80.0-96.0); RED BLOOD COUNT 2.38 10^6/uL (4.30-6.10); WHITE BLOOD COUNT 10.1 10^3/uL (4.0-10.0)
[2019-12-04 16:40] LABS: ALBUMIN 3.5 GM/DL (3.2-5.2); ALT/SGPT 27 U/L (12-78); BILIRUBIN,TOTAL 0.4 MG/DL (0.2-1.0); BLOOD UREA NITROGEN 11 MG/DL (7-18); CALCIUM LEVEL 8.6 MG/DL (8.8-10.2); CARBON DIOXIDE LEVEL 30 MEQ/L (21-32); CHLORIDE LEVEL 106 MEQ/L (98-107); CREATININE FOR GFR 0.96 MG/DL (0.70-1.30); GLOMERULAR FILTRATION RATE > 60.0 (>42); GLUCOSE, FASTING 132 MG/DL (70-100); PLATELET COUNT, AUTOMATED 98 10^3/uL (150-450); SODIUM LEVEL 139 MEQ/L (136-145); TOTAL PROTEIN 5.9 GM/DL (6.4-8.2)
[2019-12-04 20:47] LABS: ATYPICAL LYMPH 2 % (0-5); EOSINOPHILS 6 % (0-3); LYMPHOCYTES 5 % (16-44); METAMYELOCYTES 3 % (0-0); MONOCYTES 2 % (0-5); MYELOCYTES 1 % (0-0); NEUTROPHILS 77 % (28-66); PROMYELOCYTES 1 % (0-0)
[2019-12-04 20:48] LABS: ANISOCYTOSIS 1+; TEAR DROP CELLS 1+
[2019-12-04 20:50] LABS: TOXIC GRANULATION 1+; TOXIC VACUOLATION 1+
[2019-12-04 20:51] LABS: PLATELET ESTIMATE DECREASED (NORMAL)
== END ==
LOC: M SHH 16:00
PROVIDERS: ATTEND Internal Medicine
DX: C83.30 Diffuse large B-cell lymphoma, unspecified site (principal)

== ENCOUNTER → 2019-12-11 | Outpatient (REF) | payer MEDICARE ==
[2019-12-11 10:57] LABS: BASO # 0.1 10^3/uL (0.0-0.2); BASO % 1.6 % (0.0-1.0); EOS # 0.1 10^3/uL (0.0-0.5); EOS % 2.2 % (0.0-3.0); HEMATOCRIT 28.4 % (42.0-52.0); HEMOGLOBIN 9.1 g/dl (13.5-17.5); LYMPH # 0.6 10^3/uL (1.5-5.0); LYMPH % 10.1 % (24.0-44.0); MEAN CORPUSCULAR HEMOGLOBIN 32.5 pg (27.0-33.0); MEAN CORPUSCULAR VOLUME 101.4 fl (80.0-96.0); MONO # 0.6 10^3/uL (0.0-0.8); MONO % 11.7 % (0.0-5.0); NEUTROPHILS % 73.1 % (36.0-66.0); PLATELET COUNT, AUTOMATED 159 10^3/uL (150-450); WHITE BLOOD COUNT 5.5 10^3/uL (4.0-10.0)
[2019-12-11 11:24] LABS: ALBUMIN 3.6 GM/DL (3.2-5.2); ALT/SGPT 29 U/L (12-78); BILIRUBIN,TOTAL 0.4 MG/DL (0.2-1.0); BLOOD UREA NITROGEN 25 MG/DL (7-18); CALCIUM LEVEL 8.4 MG/DL (8.8-10.2); CARBON DIOXIDE LEVEL 27 MEQ/L (21-32); CHLORIDE LEVEL 105 MEQ/L (98-107); CREATININE FOR GFR 1.19 MG/DL (0.70-1.30); GLOMERULAR FILTRATION RATE > 60.0 (>42); GLUCOSE, FASTING 105 MG/DL (70-100); POTASSIUM SERUM 4.9 MEQ/L (3.5-5.1); SODIUM LEVEL 137 MEQ/L (136-145); TOTAL PROTEIN 6.4 GM/DL (6.4-8.2)
== END ==
LOC: M SHH 10:46
PROVIDERS: ATTEND Internal Medicine
DX: C83.30 Diffuse large B-cell lymphoma, unspecified site (principal)

== ENCOUNTER → 2019-12-16 | Outpatient (CLI) | payer MEDICARE ==
--- NOTE | 2019-12-16 15:34 | REP ---
PET/CT: History: Restaging diffuse large B-cell lymphoma of the liver. Chemotherapy. Comparisons: Comparison PET/CT study July 08, 2019. Comparison CT study chest, abdomen and pelvis September 25, 2019. TECHNIQUE: 70 minutes following the intravenous injection of a 9.13 mCi dose of F-18 FDG, three-dimensional PET scintigraphy is acquired from the skull vertex to the toes . Triplanar noncontrast CT scanning is acquired through the same anatomic range for attenuation correction, and image registration with scan parameters optimized to minimize radiation exposure to the patient. PET scintigraphy and CT datasets were fused and displayed on a workstation with multiplanar and projection display capability. PET/CT Findings: There is no abnormal hypermetabolic uptake in the head and neck soft tissues. A right-sided Nfafom-X-Iugw catheter is noted. No abnormal hilar or mediastinal hypermetabolic uptake is seen in the chest. No pulmonary parenchymal hypermetabolic uptake is seen. The liver and spleen are dramatically improved. Nonhypermetabolic low density areas are seen within the liver. There is one area along the medial border of the left lobe of the liver adjacent to the antrum of the stomach which shows uptake slightly higher than background liver uptake. This may be gastrointestinal mucosal uptake. Maximum standard uptake value here is 3.91. This is similar in degree of uptake to gastrointestinal mucosal uptake elsewhere. No other hypermetabolic focus is seen within the liver or spleen on today's PET/CT. No abnormal tho uptake is seen in the abdomen and pelvis. PET scintigraphy is otherwise unremarkable. Impression: Markedly improved PET scintigraphy. Equivocal focus adjacent to or within the periphery of the left lobe of the liver versus physiologic gastric mucosal uptake. Otherwise negative PET scintigraphy. Electronically Signed by Camron Williamson MD 12/16/2019 04:50 P
== END ==
LOC: M PLARAD 08:25
PROVIDERS: ATTEND Internal Medicine Medical Oncology
DX: R16.0 Hepatomegaly, not elsewhere classified (principal); C83.30 Diffuse large B-cell lymphoma, unspecified site
CPT/HCPCS: 78816; A9552

== ENCOUNTER → 2020-03-09 | Outpatient (CLI) | payer MEDICARE ==
--- NOTE | 2020-03-09 12:40 | REP ---
PET/CT: HISTORY: Restaging diffuse large B-cell lymphoma. On chemotherapy. COMPARISONS: Comparison PET/CT study December 16, 2019. Comparison PET/CT is also reviewed from July 08, 2019. TECHNIQUE: 45 minutes following the intravenous injection of a 8.23 mCi dose of F-18 FDG, three-dimensional PET scintigraphy is acquired from the skull base to the proximal thighs. Triplanar noncontrast CT scanning is acquired through the same anatomic range for attenuation correction, and image registration with scan parameters optimized to minimize radiation exposure to the patient. PET scintigraphy and CT datasets were fused and displayed on a workstation with multiplanar and projection display capability. PET/CT FINDINGS: Head and neck soft tissues are unremarkable. There is a right-sided Ymlzxg-D-Hifj catheter. There is no abnormal hypermetabolic uptake in the hilar or mediastinal structures. No abnormal pulmonary parenchymal hypermetabolic uptake is appreciated. In the abdomen and pelvis, normal hepatic, splenic, gastrointestinal, and genitourinary FDG accumulation is seen. No abnormal hypermetabolic uptake is seen in the abdomen or pelvis. The previously noted left lobe liver uptake is not seen. No abnormal splenic uptake is seen. IMPRESSION: Negative PET scintigraphy. No abnormal hypermetabolic uptake is appreciated. Electronically Signed by Camron Williamson MD 03/09/2020 12:45 P
== END ==
LOC: M PLARAD 08:30
PROVIDERS: ATTEND Internal Medicine Medical Oncology
DX: C83.39 Diffuse large B-cell lymphoma, extranodal and solid organ sites (principal)
CPT/HCPCS: 78815; A9552

== ENCOUNTER → 2020-06-14 | Outpatient (CLI) | payer MEDICARE ==
[~2020-06-14] MED LIST changes: +PANT40TA29 PO; -PANT40TA3 PO; -PROC5TA PO; +PROC5TAB57 PO
--- NOTE | 2020-06-23 09:53 | REP ---
PET CT HISTORY: Restaging large B-cell lymphoma. COMPARISON: PET CT is reviewed from 03/09/2020 and 07/08/2019. TECHNIQUE: 58 minutes following the intravenous injection of an 8.0 mCi dose of F18 fluorodeoxyglucose, three-dimension PET CT scanning is acquired from the skull base to the proximal thighs. PET CT FINDINGS: Head and neck soft tissues are unremarkable. No abnormal hypermetabolic uptake is seen within the thorax. No extrathoracic mass or adenopathy is seen. In the abdomen and pelvis, there is normal hepatic, splenic, gastrointestinal, and genitourinary FDG accumulation. There are areas of low density in the liver, but no area of hypermetabolic uptake is seen. These findings are unchanged. There is a small cyst in the left kidney. No abnormal hypermetabolic tho uptake is seen in the abdomen or pelvis. IMPRESSION: Negative PET scintigraphy. No abnormal hypermetabolic uptake seen. MTDD
== END ==
LOC: M PLARAD 08:06
PROVIDERS: ATTEND Internal Medicine Medical Oncology
DX: C83.39 Diffuse large B-cell lymphoma, extranodal and solid organ sites (principal)
CPT/HCPCS: 78815; A9552

== ENCOUNTER → 2020-10-07 | Outpatient (CLI) | payer MEDICARE ==
[~2020-10-07] MED LIST changes: -LISI40TA PO; +LISI40TA4 PO
--- NOTE | 2020-10-07 13:46 | REP ---
INDICATION: SHOULDER PAIN- RIGHT. COMPARISON: None. TECHNIQUE: Three views. FINDINGS: The right glenohumeral and acromioclavicular joints are normally aligned. There are 2 fairly large periarticular soft tissue calcifications at the superior aspect of the shoulder consistent with calcific tendinitis or bursitis. There is also a large inferiorly positioned acromion process spur. Some AC joint spurring is noted as well. These findings may reflect impingement. No fracture is seen. A right-sided Myuogo-M-Rbtp catheter is noted. The visualized right rib cage is unremarkable. IMPRESSION: Dystrophic soft tissue calcifications consistent with calcific tendinitis or bursitis. Acromion process and AC joint spurring. No acute bony abnormality. <Electronically signed by Mike Williamson > 10/07/20 [id number]
== END ==
LOC: M RAD 13:17
PROVIDERS: ATTEND Internal Medicine Medical Oncology
DX: M75.31 Calcific tendinitis of right shoulder (principal)

== ENCOUNTER → 2020-12-20 | Outpatient (CLI) | payer MEDICARE ==
--- NOTE | 2020-12-20 18:49 | REP ---
INDICATION: RESTAGING DLBCL C83.38. COMPARISON: PET-CT scan dated June 14, 2020 and chest/abdomen/pelvis CT dated 09/25/2019. TECHNIQUE: Whole body scanning is performed from the skull base to the upper thighs with 16.9 mCi of F 18 FDG. FINDINGS: Neck and supraclavicular areas: There are no hypermetabolic foci. Chest: There are no hypermetabolic foci. Abdomen, pelvis and upper thighs: There are no hypermetabolic foci. On the CT accompanying the PET scan there are subtle areas of low density in the liver, similar to the CT accompanying the PET scan 06/14/2020. No hypodensities are identified in the spleen. IMPRESSION: There are no hypermetabolic foci. Subtle areas of hypodensity persist in the liver on the CT scan accompanying the PET scan, unchanged. <Electronically signed by Christopher Beckham > 12/20/20 [id number]
== END ==
LOC: M PLARAD 08:00
PROVIDERS: ATTEND Internal Medicine Medical Oncology
DX: C83.38 Diffuse large B-cell lymphoma, lymph nodes of multiple sites (principal); R93.2 Abnormal findings on diagnostic imaging of liver and biliary tract
CPT/HCPCS: 78815; A9552

== ENCOUNTER → 2021-01-10 | Outpatient (REF) | payer MEDICARE ==
[~2021-01-10] MED LIST changes: +BACTDSTA; -SULF1TAB93
[2021-01-10 16:30] LABS: BLOOD UREA NITROGEN 22 MG/DL (7-18); CARBON DIOXIDE LEVEL 28 MEQ/L (21-32); CHLORIDE LEVEL 104 MEQ/L (98-107); CREATININE FOR GFR 0.83 MG/DL (0.70-1.30); GLOMERULAR FILTRATION RATE > 60.0 (>42); GLUCOSE, FASTING 95 MG/DL (70-100); POTASSIUM SERUM 4.6 MEQ/L (3.5-5.1); SODIUM LEVEL 139 MEQ/L (136-145)
== END ==
LOC: M SFHCCLAY 08:51
PROVIDERS: ATTEND Family Medicine
DX: Z01.818 Encounter for other preprocedural examination (principal); I11.9 Hypertensive heart disease without heart failure
CPT/HCPCS: 80048; G0463

== ENCOUNTER → 2021-01-20 | Outpatient (CLI) | payer MEDICARE ==
[~2021-01-20] MED LIST changes: -BACTDSTA; +SULF1TAB93
== END ==
LOC: M LABSMTC 10:34
PROVIDERS: ATTEND Ophthalmology Retina Specialist
DX: Z01.818 Encounter for other preprocedural examination (principal); Z20.822 Contact with and (suspected) exposure to COVID-19

== ENCOUNTER → 2021-11-02 | Outpatient (CLI) | payer MEDICARE ==
[~2021-11-02] MED LIST changes: +BACTDSTA; +GENT0.3S29 OS; +OMEP-173 PO; -OMEP-218 PO; +ONDA-84 PO; -ONDA8TAB10 PO; +PREDOPD OS; -SULF1TAB93
== END ==
LOC: M RAD 08:41
PROVIDERS: ATTEND Internal Medicine Medical Oncology
DX: H92.01 Otalgia, right ear (principal); C85.90 Non-Hodgkin lymphoma, unspecified, unspecified site

== ENCOUNTER → 2022-01-18 | Outpatient (REF) | payer MEDICARE ==
[2022-01-19 12:26] LABS: BLOOD UREA NITROGEN 16 MG/DL (7-18); CALCIUM LEVEL 9.5 MG/DL (8.8-10.2); CARBON DIOXIDE LEVEL 27 MEQ/L (21-32); CHLORIDE LEVEL 107 MEQ/L (98-107); CREATININE FOR GFR 0.88 MG/DL (0.70-1.30); GLOMERULAR FILTRATION RATE > 60.0 (>42); GLUCOSE, FASTING 94 MG/DL (70-100); POTASSIUM SERUM 4.3 MEQ/L (3.5-5.1); SODIUM LEVEL 139 MEQ/L (136-145)
== END ==
LOC: M SFHCCLAY 15:05
PROVIDERS: ATTEND Family Medicine
DX: I11.9 Hypertensive heart disease without heart failure (principal)

== ENCOUNTER → 2022-04-24 | Outpatient (CLI) | payer MEDICARE ==
[~2022-04-24] MED LIST changes: +GASTROGRAFIN SOLUTION 30ML (Q9963) As Ordered ONE; +ISOVUE-370 76% 100ML VIAL As Ordered ONE
== END ==
LOC: M RAD 15:34
PROVIDERS: ATTEND Internal Medicine
DX: C85.90 Non-Hodgkin lymphoma, unspecified, unspecified site (principal)
CPT/HCPCS: 70491; 71260; 74177; Q9963; Q9967

== ENCOUNTER → 2022-10-19 | Outpatient (REF) | payer MEDICARE ==
[~2022-10-19] MED LIST changes: -GASTROGRAFIN SOLUTION 30ML (Q9963) As Ordered ONE; -ISOVUE-370 76% 100ML VIAL As Ordered ONE
[2022-10-19 18:18] LABS: ALBUMIN 3.9 G/DL (3.2-5.2); ALKALINE PHOSPHATASE 66 U/L (46-116); ALT/SGPT 27 U/L (7.0-40); AST/SGOT 22 U/L (<34); BILIRUBIN,TOTAL 0.7 MG/DL (0.3-1.2); BLOOD UREA NITROGEN 13 MG/DL (9-23); CALCIUM LEVEL 9.2 MG/DL (8.3-10.6); CARBON DIOXIDE LEVEL 29 MMOL/L (20-31); CHLORIDE LEVEL 103 MMOL/L (98-107); CHOLESTEROL LEVEL 184 MG/DL (<200); CHOLESTEROL RISK RATIO 3.86 (<5); CREATININE FOR GFR 0.92 MG/DL (0.70-1.30); GLOMERULAR FILTRATION RATE > 60.0 (>42); GLUCOSE, FASTING 80 MG/DL (74-106); HDL CHOLESTEROL 47.6 MG/DL (>40); LDL CHOLESTEROL 111.8 MG/DL (<100); NON-HDL-C 136 MG/DL; POTASSIUM SERUM 4.5 MMOL/L (3.5-5.1); SODIUM LEVEL 138 MMOL/L (136-145); TOTAL PROTEIN 6.6 G/DL (5.7-8.2); TRIGLYCERIDES LEVEL 123 MG/DL (<150)
== END ==
LOC: M SFHCCLAY 10:13
PROVIDERS: ATTEND Nurse Practitioner Family
DX: I10 Essential (primary) hypertension (principal); E78.2 Mixed hyperlipidemia

== ENCOUNTER → 2023-07-03 | Outpatient (CLI) | payer MEDICARE ==
[~2023-07-03] MED LIST changes: -OXYC-403 PO; +OXYC-673 PO
== END ==
LOC: M CLY 13:59
PROVIDERS: ATTEND Nurse Practitioner Family
DX: M75.31 Calcific tendinitis of right shoulder (principal); M76.891 Other specified enthesopathies of right lower limb, excluding foot

== ENCOUNTER → 2024-07-08 | Outpatient (CLI) | payer MEDICARE ==
[~2024-07-08] VITALS: Ht 170.2 cm; Wt 89.0 kg
[~2024-07-08] MED LIST changes: +DAPS100T22 PO; -DAPS10TA PO; -GENT0.3S29 OS; +GENT0.3S34 OS; +HYDR-3490 PO; +LIDOCAINE 1% MDV 20ML VIAL As Ordered ONE; +MIDAZOLAM INJ 2MG/2ML VIAL As Ordered ONE; +ceFAZolin 2 GM/D5W 50 ML IV BAG As Ordered ONE; +fentaNYL 100 MCG/2 ML INJECTION As Ordered ONE
[2024-07-08 10:17] VITALS: TEMP 97.4
[2024-07-08] MEDS: ceFAZolin SOD 2 GM in IV 1 EA IV ONE (11:48)
[2024-07-08] MEDS: NS 1,000 ML IV SCH (11:48)
[2024-07-08 13:21] VITALS: BP 124/70; O2SAT 98
== END ==
LOC: M IRPRO 10:03
PROVIDERS: ATTEND Dietitian, Registered
DX: R59.0 Localized enlarged lymph nodes (principal); R16.1 Splenomegaly, not elsewhere classified
CPT/HCPCS: 36590; 99152; J0690; J2250; J3010

== ENCOUNTER → 2024-10-02 | Outpatient (REF) | payer MEDICARE ==
[~2024-10-02] MED LIST changes: -LIDOCAINE 1% MDV 20ML VIAL As Ordered ONE; -MIDAZOLAM INJ 2MG/2ML VIAL As Ordered ONE; -ceFAZolin 2 GM/D5W 50 ML IV BAG As Ordered ONE; -fentaNYL 100 MCG/2 ML INJECTION As Ordered ONE
[2024-10-02 16:40] LABS: CALCIUM LEVEL 9.1 MG/DL (8.3-10.6); CREATININE FOR GFR 1.26 MG/DL (0.70-1.30); GLOMERULAR FILTRATION RATE 59.2 (>42)
[2024-10-02 19:00] LABS: CREATININE, URINE 95.5 MG/DL; MALB URINE SIEMENS < 3.0 MG/L
== END ==
LOC: M LAB REF 15:10
PROVIDERS: ATTEND Student in an Organized Health Care Education/Training Program
DX: I10 Essential (primary) hypertension (principal)

== ENCOUNTER → 2025-03-23 | Outpatient (CLI) | payer MEDICARE ==
[~2025-03-23] MED LIST changes: +LISI40TA10 PO; -LISI40TA4 PO
== END ==
LOC: M PLARAD 11:21
DX: C83.38 Diffuse large B-cell lymphoma, lymph nodes of multiple sites (principal)
CPT/HCPCS: 78815; A9552